=== PATIENT | female | born 1950 | race Caucasian/White ===

== ENCOUNTER 2024-12-25 08:01 | Day surgery (SDC) | payer MEDICARE, SELFPAY ==
[2024-12-21 14:05] VITALS: BMI 33.3
[2024-12-25] MEDS: Tetracaine HCl/PF 0.5% Oph Sol 4 ML DROPS 1 DROP EYE-RIGHT (08:33)
[2024-12-25] MEDS: Lactated Ringers 500 ML 50 ML IV (08:33)
[2024-12-25] MEDS: Tropicamide 1 % Ophth Sol 3 ML BTL 1 DROP EYE-RIGHT ×3 (08:33→08:44)
[2024-12-25] MEDS: Phenylephrine HCL 2.5% Oph SoL 2 ML BOTTLE 1 DROP EYE-RIGHT ×3 (08:34→08:45)
[2024-12-25] MEDS: Cyclopentolate 1 % Ophth Sol 2 ML DRPBTL 1 DROP EYE-RIGHT ×3 (08:34→08:44)
[2024-12-25] MEDS: Ketorolac Tromethamine 0.5% Op 5 ML DROPS 1 DROP EYE-RIGHT ×3 (08:34→08:45)
[2024-12-25 08:51] VITALS: BP 119/58; PULSE 69; RESP 18; TEMP 36.8; O2SAT 94
--- NOTE | 2024-12-25 09:54 | MHC.SHP ---
Pre-Procedural Eval Section A - 24 Hr Update-Section A only Date of Service: 12/25/24 The patient is an INPATIENT: No Changes since office visit: No Cold of Flu in the past 2 weeks, No New Medical Problems, No Changes in Medication and No Patient answered all questions The patient has been examined within 24 hours of the surgical procedure. The History & Physical has been completed within 30 days and I have reviewed it.: Yes Section B - Complete if H&P > 30 days Chief Complaint: Age-related nuclear cataract, right eye Allergies: Allergies Allergy/AdvReac Type Severity Reaction Status Date / Time amoxicillin (From Augmentin) Allergy Severe Hives Verified 12/25/24 08:52 clavulanic acid (From Allergy Severe Hives Verified 12/25/24 08:52 Augmentin) morphine Allergy Severe Hives, Verified 12/25/24 08:52 itching Plan Diagnosis/Plan: Unchanged I have reviewed the history and physical and performed a pertinent physical examination on my patient. No changes have occurred unless specified. Time Spent With Patient Time: Total time managing care of this patient today ____ minutes.
--- NOTE | 2024-12-25 09:55 | P.PCNO_ITS ---
Ophthalmology Procedure Procedure Date of Service: 12/25/24 Ophthalmology Viscoelastic: Healon Duet Dual Pack Pro Ophthalmology Lenses: IOL Acrysof MP - MA60AC (12.5) Procedure Notes: PREOPERATIVE DIAGNOSIS: Decreased visual acuity right eye secondary to cataract POSTOPERATIVE DIAGNOSIS: Same PROCEDURE: Right cataract extraction with intraocular lens insertion SURGEON: Demarco Gauthier M.D. ANESTHESIA: Topical/MAC ESTIMATED BLOOD LOSS: None COMPLICATIONS: None After obtaining informed consent, the patient was brought to the operating room suite and placed in the supine position. After adequate sedation per anesthesia, topical drops of Tetracaine were given to the right eye. The eye was then prepped and draped in the usual sterile fashion. The operating room microscope was then positioned over the operative eye and a lid speculum placed. A paracentesis was created. Viscoelastic was then instilled into the anterior chamber. A three plane incision was then created temporally, utilizing a 2.85 mm keratome. Capsulotomy forceps were then utilized to create a circular tear capsulotomy. Hydrodissection and hydrodelineation were carried out until adequate mobilization of the nucleus occurred. Phacoemulsification was then utilized to remove the dense central nu cleus followed by removal of the cortical material utilizing the automated aspiration irrigation unit. Viscoelastic was instilled into the posterior capsular bag followed by placement of a posterior chamber intraocular lens without difficulty. The residual Viscoelastic was then removed utilizing the automated IA machine. The wound was checked and found to be watertight. The patient tolerated the procedure well and the lid speculum was removed. Intracameral injection of Vigamox 0.1 mL followed by a subtenon injection of Kenalog-40 0.2 mL were administered. The patient will be seen in the a.m.
[2024-12-25 10:47] VITALS: BP 132/58; PULSE 77; RESP 18; TEMP 36.1; O2SAT 97
== END 2024-12-25 10:53 | disposition home or self-care (01) ==
PROVIDERS: PCP Internal Medicine; Visit Provider Ophthalmology
PROC: (CPT 66985; principal; 2024-12-25 10:00)
DX: H25.11 Age-related nuclear cataract, right eye (principal); H54.7 Unspecified visual loss; H40.013 Open angle with borderline findings, low risk, bilateral; H50.15 Alternating exotropia; H52.13 Myopia, bilateral; Z83.518 Family history of other specified eye disorder; I12.9 Hypertensive chronic kidney disease with stage 1 through stage 4 chronic kidney disease, or unspecified chronic kidney disease; N18.2 Chronic kidney disease, stage 2 (mild); D50.9 Iron deficiency anemia, unspecified; E03.9 Hypothyroidism, unspecified; I82.409 Acute embolism and thrombosis of unspecified deep veins of unspecified lower extremity; D49.7 Neoplasm of unspecified behavior of endocrine glands and other parts of nervous system; G50.0 Trigeminal neuralgia; E78.00 Pure hypercholesterolemia, unspecified; J45.20 Mild intermittent asthma, uncomplicated; Z79.01 Long term (current) use of anticoagulants; Z79.899 Other long term (current) drug therapy; Z88.1 Allergy status to other antibiotic agents; Z88.5 Allergy status to narcotic agent; Z98.890 Other specified postprocedural states; Z87.891 Personal history of nicotine dependence
CPT/HCPCS: 66984; J2250; J3301; V2630

== ENCOUNTER 2025-01-08 06:23 | Day surgery (SDC) | payer MEDICARE, SELFPAY ==
[2024-12-21 14:10] VITALS: BMI 33.3
--- NOTE | 2024-12-22 14:10 | HO.ANESPROP2 ---
Documented by User: Concepcion Nicholson NP 12/22/24 14:11 HPI - Anesthesia Eval Consult details Narrative: 74 yr old female for ?Cataract Extraction IOL Insertion left H/O DVT: on eliquis PMFSH Past Medical History Medical History Cataracts, bilateral GERD (gastroesophageal reflux disease) HLD (hyperlipidemia) HTN (hypertension) DVT (deep venous thrombosis) Hypercholesterolemia Trigeminal neuralgia Pituitary tumor Colitis Thyroid disease HTN (hypertension) Family History Family History Mother HTN (hypertension) Macular edema Arthritis Father Thyroid disease Diabetes Liver cancer Rheumatoid arthritis Sister Arthritis COPD (chronic obstructive pulmonary disease) Macular degeneration Surgical History Surgical History History of removal of retained hardware (12/01/24) Hx of salpingo-oophorectomy, bilateral Hx of abdominal hysterectomy (1975) History of esophagogastroduodenoscopy (EGD) Hx of colonoscopy History of laminectomy Hx of breast surgery History of back surgery Social History Social History Household Members: Family Are you a primary care tech to a significant other at home: No Do you presently have visiting nurse or other home services: No Alcohol intake: never Patient Tobacco Use Status: Former Tobacco user Tobacco use type: Cigarette Cigarette Packs Per Day: 3 Years Smoked: 56.5 Smoked in Last 30 Days: No Use of substances other than those prescribed or required for medical reasons: No Have you been hit, kicked, punched, or otherwise hurt by someone within the past year? If so, by whom?: No Are you DNR?: No Advance Directives: No Advance Directives Information Provided: Yes Advance Directives on File: No Poor oral hygiene: No Meds Allergies Allergy/AdvReac Type Severity Reaction Status Date / Time amoxicillin (From Augmentin) Allergy Severe Hives Verified 12/25/24 08:52 clavulanic acid (From Allergy Severe Hives Verified 12/25/24 08:52 Augmentin) morphine Allergy Severe Hives, Verified 12/25/24 08:52 itching Home Medications ?Medication ?Instructions ?Recorded ?Confirmed ?Last Taken ?Type albuterol sulfate 90 mcg/actuation 2 puff inhalation Q4H PRN wheezing 10/26/24 12/21/24 Unknown History aerosol inhaler amitriptyline 10 mg tablet 10 mg PO BEDTIME 10/26/24 12/21/24 Unknown History apixaban 2.5 mg tablet (Eliquis) 2.5 mg PO BID 10/26/24 12/21/24 12/23/24 History azelastine 137 mcg (0.1 %) nasal 1 spray intranasal BID 10/26/24 12/21/24 Unknown History spray carvedilol 12.5 mg tablet 12.5 mg PO BID 10/26/24 12/21/24 12/25/24 History colestipol 1 gram tablet PO 10/26/24 Unknown History diphenoxylate-atropine 2.5 1 tab PO TID PRN diarrhea 10/26/24 12/21/24 Unknown History mg-0.025 mg tablet (Lomotil) fenofibrate 54 mg tablet 54 mg PO BEDTIME 10/26/24 12/21/24 Unknown History furosemide 20 mg tablet 20 mg PO DAILY 10/26/24 12/21/24 Unknown History hydrocortisone 10 mg tablet 10 mg PO QAM 10/26/24 12/21/24 12/25/24 History levothyroxine 125 mcg tablet 125 mcg PO DAILY 10/26/24 12/21/24 12/25/24 History (Synthroid) losartan 100 mg tablet 100 mg PO DAILY 10/26/24 12/21/24 Unknown History omeprazole 40 mg capsule,delayed 40 mg PO DAILY 10/26/24 12/21/24 12/25/24 History release ondansetron HCl 4 mg tablet 4 mg PO Q6H PRN nausea 10/26/24 12/21/24 Unknown History pramipexole 0.125 mg tablet 0.125 mg PO BEDTIME 10/26/24 12/21/24 Unknown History cholecalciferol (vitamin D3) 50 50 mcg PO DAILY 12/21/24 12/21/24 Unknown History mcg (2,000 unit) tablet (Vitamin D3) conjugated estrogens 0.625 mg/gram 0.625 mg vaginal 3XW 12/21/24 12/21/24 Unknown History vaginal cream (Premarin) dicyclomine 20 mg tablet 20 mg PO QID 12/21/24 12/21/24 Unknown History hydrochlorothiazide 12.5 mg tablet 12.5 mg PO DAILY 12/21/24 12/21/24 Unknown History hydrocortisone 5 mg tablet 5 mg PO .DAILY@1300 12/21/24 12/21/24 Unknown History oxycodone 5 mg tablet mg PO 12/21/24 12/21/24 Unknown History pravastatin 40 mg tablet 40 mg PO DAILY 12/21/24 12/21/24 Unknown History Exam Height,Weight and Vital Signs: Height 5 ft 4 in Weight 87.997 kg Documented by User: Nicole Hernandez MD 12/25/24 09:09 [facility] Past Medical History Medical History Cataracts, bilateral GERD (gastroesophageal reflux disease) HLD (hyperlipidemia) HTN (hypertension) DVT (deep venous thrombosis) Hypercholesterolemia Trigeminal neuralgia Pituitary tumor Colitis Thyroid disease HTN (hypertension) Family History Family History Mother HTN (hypertension) Macular edema Arthritis Father Thyroid disease Diabetes Liver cancer Rheumatoid arthritis Sister Arthritis COPD (chronic obstructive pulmonary disease) Macular degeneration Family history of problems with anesthesia: No Surgical History Surgical History History of removal of retained hardware (12/01/24) Hx of salpingo-oophorectomy, bilateral Hx of abdominal hysterectomy (1975) History of esophagogastroduodenoscopy (EGD) Hx of colonoscopy History of laminectomy Hx of breast surgery History of back surgery History of Problems with Anesthesia: No Social History Social History Household Members: Family Are you a primary care tech to a significant other at home: No Do you presently have visiting nurse or other home services: No Alcohol intake: never Patient Tobacco Use Status: Former Tobacco user Tobacco use type: Cigarette Cigarette Packs Per Day: 3 Years Smoked: 56.5 Smoked in Last 30 Days: No Use of substances other than those prescribed or required for medical reasons: No Have you been hit, kicked, punched, or otherwise hurt by someone within the past year? If so, by whom?: No Are you DNR?: No Advance Directives: No Advance Directives Information Provided: Yes Advance Directives on File: No Poor oral hygiene: No Meds Allergies Allergy/AdvReac Type Severity Reaction Status Date / Time amoxicillin (From Augmentin) Allergy Severe Hives Verified 12/25/24 08:52 clavulanic acid (From Allergy Severe Hives Verified 12/25/24 08:52 Augmentin) morphine Allergy Severe Hives, Verified 12/25/24 08:52 itching Home Medications ?Medication ?Instructions ?Recorded ?Confirmed ?Last Taken ?Type albuterol sulfate 90 mcg/actuation 2 puff inhalation Q4H PRN wheezing 10/26/24 12/21/24 Unknown History aerosol inhaler amitriptyline 10 mg tablet 10 mg PO BEDTIME 10/26/24 12/21/24 Unknown History apixaban 2.5 mg tablet (Eliquis) 2.5 mg PO BID 10/26/24 12/21/24 12/23/24 History azelastine 137 mcg (0.1 %) nasal 1 spray intranasal BID 10/26/24 12/21/24 Unknown History spray carvedilol 12.5 mg tablet 12.5 mg PO BID 10/26/24 12/21/24 12/25/24 History colestipol 1 gram tablet PO 10/26/24 Unknown History diphenoxylate-atropine 2.5 1 tab PO TID PRN diarrhea 10/26/24 12/21/24 Unknown History mg-0.025 mg tablet (Lomotil) fenofibrate 54 mg tablet 54 mg PO BEDTIME 10/26/24 12/21/24 Unknown History furosemide 20 mg tablet 20 mg PO DAILY 10/26/24 12/21/24 Unknown History hydrocortisone 10 mg tablet 10 mg PO QAM 10/26/24 12/21/24 12/25/24 History levothyroxine 125 mcg tablet 125 mcg PO DAILY 10/26/24 12/21/24 12/25/24 History (Synthroid) losartan 100 mg tablet 100 mg PO DAILY 10/26/24 12/21/24 Unknown History omeprazole 40 mg capsule,delayed 40 mg PO DAILY 10/26/24 12/21/24 12/25/24 History release ondansetron HCl 4 mg tablet 4 mg PO Q6H PRN nausea 10/26/24 12/21/24 Unknown History pramipexole 0.125 mg tablet 0.125 mg PO BEDTIME 10/26/24 12/21/24 Unknown History cholecalciferol (vitamin D3) 50 50 mcg PO DAILY 12/21/24 12/21/24 Unknown History mcg (2,000 unit) tablet (Vitamin D3) conjugated estrogens 0.625 mg/gram 0.625 mg vaginal 3XW 12/21/24 12/21/24 Unknown History vaginal cream (Premarin) dicyclomine 20 mg tablet 20 mg PO QID 12/21/24 12/21/24 Unknown History hydrochlorothiazide 12.5 mg tablet 12.5 mg PO DAILY 12/21/24 12/21/24 Unknown History hydrocortisone 5 mg tablet 5 mg PO .DAILY@1300 12/21/24 12/21/24 Unknown History oxycodone 5 mg tablet mg PO 12/21/24 12/21/24 Unknown History pravastatin 40 mg tablet 40 mg PO DAILY 12/21/24 12/21/24 Unknown History Exam Airway Mallampati Class: III TM Dist: <=3cm Neck ROM: Poor Heart: rrr Lungs: cta Assessment and Plan Assessment Anesthesia Assessment: Anesthesia Plan Discussed and Chart Reviewed Final Anesthetic Review Family History of Problems with Anesthesia: No History of Problems with Anesthesia: No NPO: Yes ASA Class: III Final Preanesthetic Review: No Changes in Pt Med Stat, Meds/Allgs Chart Reviewed, Consent Obtained/Reviewed and Anes Risks/Benef Reviewed Patient Risk: Intermediate Procedure Risk: Low Anesthetic Plan Anesthetic Plan: MAC: and Agree w/ Assess. and Plan Disposition: Standard PACU
--- NOTE | 2025-01-04 14:07 | HO.ANESPROP2 ---
Documented by User: Tari Guzman NP 01/04/25 14:08 HPI - Anesthesia Eval Consult details Narrative: 74yo F for Left Cataract Extraction IOL Insertion Right eye 12/25/24: Midaz 2 Eliquis for hx DVT PMFSH Past Medical History Medical History Cataracts, bilateral GERD (gastroesophageal reflux disease) HLD (hyperlipidemia) HTN (hypertension) DVT (deep venous thrombosis) Hypercholesterolemia Trigeminal neuralgia Pituitary tumor Colitis Thyroid disease Family History Family History Mother HTN (hypertension) Macular edema Arthritis Father Thyroid disease Diabetes Liver cancer Rheumatoid arthritis Sister Arthritis COPD (chronic obstructive pulmonary disease) Macular degeneration Family history of problems with anesthesia: No Surgical History Surgical History Hx of right cataract extraction (12/25/24) History of removal of retained hardware (12/01/24) Hx of salpingo-oophorectomy, bilateral Hx of abdominal hysterectomy (1975) History of esophagogastroduodenoscopy (EGD) Hx of colonoscopy History of laminectomy Hx of breast surgery History of back surgery History of Problems with Anesthesia: No Social History Social History Household Members: Family Are you a primary health care law specialist to a significant other at home: No Do you presently have visiting nurse or other home services: No Alcohol intake: never Patient Tobacco Use Status: Former Tobacco user Tobacco use type: Cigarette Cigarette Packs Per Day: 3 Years Smoked: 56.5 Packs Per Year: 14 Smoked in Last 30 Days: No Use of substances other than those prescribed or required for medical reasons: No Have you been hit, kicked, punched, or otherwise hurt by someone within the past year? If so, by whom?: No Are you DNR?: No Advance Directives: No Advance Directives Information Provided: Yes Advance Directives on File: No Poor oral hygiene: No Meds Allergies Allergy/AdvReac Type Severity Reaction Status Date / Time amoxicillin (From Augmentin) Allergy Severe Hives Verified 01/08/25 06:35 clavulanic acid (From Allergy Severe Hives Verified 01/08/25 06:35 Augmentin) morphine Allergy Severe Hives, Verified 01/08/25 06:35 itching Active Medications: Current Medications Naloxone HCl (Naloxone Hcl 0.4 Mg/Ml Vial) 0.04 mg IVPUSH Q5M PRN PRN Reason: Excessive sedation or RR < 8 Home Medications ?Medication ?Instructions ?Recorded ?Confirmed ?Last Taken ?Type albuterol sulfate 90 mcg/actuation 2 puff inhalation Q4H PRN wheezing 10/26/24 12/21/24 Unknown History aerosol inhaler amitriptyline 10 mg tablet 10 mg PO BEDTIME 10/26/24 12/21/24 Unknown History apixaban 2.5 mg tablet (Eliquis) 2.5 mg PO BID 10/26/24 12/21/24 12/23/24 History azelastine 137 mcg (0.1 %) nasal 1 spray intranasal BID 10/26/24 12/21/24 Unknown History spray carvedilol 12.5 mg tablet 12.5 mg PO BID 10/26/24 12/21/24 01/08/25 05:00 History colestipol 1 gram tablet PO 10/26/24 Unknown History diphenoxylate-atropine 2.5 1 tab PO TID PRN diarrhea 10/26/24 12/21/24 Unknown History mg-0.025 mg tablet (Lomotil) fenofibrate 54 mg tablet 54 mg PO BEDTIME 10/26/24 12/21/24 Unknown History furosemide 20 mg tablet 20 mg PO DAILY 10/26/24 12/21/24 Unknown History hydrocortisone 10 mg tablet 10 mg PO QAM 10/26/24 12/21/24 12/25/24 History levothyroxine 125 mcg tablet 125 mcg PO DAILY 10/26/24 12/21/24 01/08/25 05:00 History (Synthroid) losartan 100 mg tablet 100 mg PO DAILY 10/26/24 12/21/24 Unknown History omeprazole 40 mg capsule,delayed 40 mg PO DAILY 10/26/24 12/21/24 01/08/25 05:00 History release ondansetron HCl 4 mg tablet 4 mg PO Q6H PRN nausea 10/26/24 12/21/24 Unknown History pramipexole 0.125 mg tablet 0.125 mg PO BEDTIME 10/26/24 12/21/24 Unknown History cholecalciferol (vitamin D3) 50 50 mcg PO DAILY 12/21/24 12/21/24 Unknown History mcg (2,000 unit) tablet (Vitamin D3) conjugated estrogens 0.625 mg/gram 0.625 mg vaginal 3XW 12/21/24 12/21/24 Unknown History vaginal cream (Premarin) dicyclomine 20 mg tablet 20 mg PO QID 12/21/24 12/21/24 Unknown History hydrochlorothiazide 12.5 mg tablet 12.5 mg PO DAILY 12/21/24 12/21/24 Unknown History hydrocortisone 5 mg tablet 5 mg PO .DAILY@1300 12/21/24 12/21/24 Unknown History oxycodone 5 mg tablet mg PO 12/21/24 12/21/24 Unknown History pravastatin 40 mg tablet 40 mg PO DAILY 12/21/24 12/21/24 Unknown History Exam Height,Weight and Vital Signs: Height 5 ft 4 in Weight 87.997 kg Assessment and Plan Assessment Anesthesia Assessment: Chart Reviewed Final Anesthetic Review Family History of Problems with Anesthesia: No History of Problems with Anesthesia: No Documented by User: Miriam Trujillo MD 01/08/25 07:38 [facility] Past Medical History Medical History Cataracts, bilateral GERD (gastroesophageal reflux disease) HLD (hyperlipidemia) HTN (hypertension) DVT (deep venous thrombosis) Hypercholesterolemia Trigeminal neuralgia Pituitary tumor Colitis Thyroid disease Family History Family History Mother HTN (hypertension) Macular edema Arthritis Father Thyroid disease Diabetes Liver cancer Rheumatoid arthritis Sister Arthritis COPD (chronic obstructive pulmonary disease) Macular degeneration Surgical History Surgical History Hx of right cataract extraction (12/25/24) History of removal of retained hardware (12/01/24) Hx of salpingo-oophorectomy, bilateral Hx of abdominal hysterectomy (1975) History of esophagogastroduodenoscopy (EGD) Hx of colonoscopy History of laminectomy Hx of breast surgery History of back surgery Social History Social History Household Members: Family Are you a primary health care law specialist to a significant other at home: No Do you presently have visiting nurse or other home services: No Alcohol intake: never Patient Tobacco Use Status: Former Tobacco user Tobacco use type: Cigarette Cigarette Packs Per Day: 3 Years Smoked: 56.5 Packs Per Year: 14 Smoked in Last 30 Days: No Use of substances other than those prescribed or required for medical reasons: No Have you been hit, kicked, punched, or otherwise hurt by someone within the past year? If so, by whom?: No Are you DNR?: No Advance Directives: No Advance Directives Information Provided: Yes Advance Directives on File: No Poor oral hygiene: No Meds Allergies Allergy/AdvReac Type Severity Reaction Status Date / Time amoxicillin (From Augmentin) Allergy Severe Hives Verified 01/08/25 06:35 clavulanic acid (From Allergy Severe Hives Verified 01/08/25 06:35 Augmentin) morphine Allergy Severe Hives, Verified 01/08/25 06:35 itching Home Medications ?Medication ?Instructions ?Recorded ?Confirmed ?Last Taken ?Type albuterol sulfate 90 mcg/actuation 2 puff inhalation Q4H PRN wheezing 10/26/24 12/21/24 Unknown History aerosol inhaler amitriptyline 10 mg tablet 10 mg PO BEDTIME 10/26/24 12/21/24 Unknown History apixaban 2.5 mg tablet (Eliquis) 2.5 mg PO BID 10/26/24 12/21/24 12/23/24 History azelastine 137 mcg (0.1 %) nasal 1 spray intranasal BID 10/26/24 12/21/24 Unknown History spray carvedilol 12.5 mg tablet 12.5 mg PO BID 10/26/24 12/21/24 01/08/25 05:00 History colestipol 1 gram tablet PO 10/26/24 Unknown History diphenoxylate-atropine 2.5 1 tab PO TID PRN diarrhea 10/26/24 12/21/24 Unknown History mg-0.025 mg tablet (Lomotil) fenofibrate 54 mg tablet 54 mg PO BEDTIME 10/26/24 12/21/24 Unknown History furosemide 20 mg tablet 20 mg PO DAILY 10/26/24 12/21/24 Unknown History hydrocortisone 10 mg tablet 10 mg PO QAM 10/26/24 12/21/24 12/25/24 History levothyroxine 125 mcg tablet 125 mcg PO DAILY 10/26/24 12/21/24 01/08/25 05:00 History (Synthroid) losartan 100 mg tablet 100 mg PO DAILY 10/26/24 12/21/24 Unknown History omeprazole 40 mg capsule,delayed 40 mg PO DAILY 10/26/24 12/21/24 01/08/25 05:00 History release ondansetron HCl 4 mg tablet 4 mg PO Q6H PRN nausea 10/26/24 12/21/24 Unknown History pramipexole 0.125 mg tablet 0.125 mg PO BEDTIME 10/26/24 12/21/24 Unknown History cholecalciferol (vitamin D3) 50 50 mcg PO DAILY 12/21/24 12/21/24 Unknown History mcg (2,000 unit) tablet (Vitamin D3) conjugated estrogens 0.625 mg/gram 0.625 mg vaginal 3XW 12/21/24 12/21/24 Unknown History vaginal cream (Premarin) dicyclomine 20 mg tablet 20 mg PO QID 12/21/24 12/21/24 Unknown History hydrochlorothiazide 12.5 mg tablet 12.5 mg PO DAILY 12/21/24 12/21/24 Unknown History hydrocortisone 5 mg tablet 5 mg PO .DAILY@1300 12/21/24 12/21/24 Unknown History oxycodone 5 mg tablet mg PO 12/21/24 12/21/24 Unknown History pravastatin 40 mg tablet 40 mg PO DAILY 12/21/24 12/21/24 Unknown History Exam Airway Mallampati Class: III TM Dist: >3cm Neck ROM: Full Loose/Missing/Broken Teeth: No Heart: RRR Lungs: CTA Assessment and Plan Assessment Anesthesia Assessment: Anesthesia Plan Discussed Final Anesthetic Review NPO: Yes ASA Class: III Final Preanesthetic Review: Meds/Allgs Chart Reviewed, Consent Obtained/Reviewed and Anes Risks/Benef Reviewed Patient Risk: Intermediate Procedure Risk: Low Anesthetic Plan Anesthetic Plan: MAC: Disposition: Standard PACU
[2025-01-08] MEDS: Tetracaine HCl/PF 0.5% Oph Sol 4 ML DROPS 1 DROP EYE-LEFT (06:44)
[2025-01-08] MEDS: Cyclopentolate 1 % Ophth Sol 2 ML DRPBTL 1 DROP EYE-LEFT ×3 (06:48→07:01)
[2025-01-08] MEDS: Tropicamide 1 % Ophth Sol 3 ML BTL 1 DROP EYE-LEFT ×3 (06:49→07:02)
[2025-01-08] MEDS: Ketorolac Tromethamine 0.5% Op 5 ML DROPS 1 DROP EYE-LEFT ×3 (06:50→07:03)
[2025-01-08] MEDS: Phenylephrine HCL 2.5% Oph SoL 2 ML BOTTLE 1 DROP EYE-LEFT ×3 (06:53→07:04)
[2025-01-08 07:00] VITALS: BP 129/49; PULSE 60; RESP 15; TEMP 36.2; O2SAT 94
[2025-01-08] MEDS: Lactated Ringers 500 ML 50 ML IV (07:04)
--- NOTE | 2025-01-08 07:47 | MHC.SHP ---
Pre-Procedural Eval Section A - 24 Hr Update-Section A only Date of Service: 01/08/25 The patient is an INPATIENT: No Changes since office visit: No Cold of Flu in the past 2 weeks, No New Medical Problems, No Changes in Medication and No Patient answered all questions The patient has been examined within 24 hours of the surgical procedure. The History & Physical has been completed within 30 days and I have reviewed it.: Yes Section B - Complete if H&P > 30 days Chief Complaint: Age-related nuclear cataract, left eye Allergies: Allergies Allergy/AdvReac Type Severity Reaction Status Date / Time amoxicillin (From Augmentin) Allergy Severe Hives Verified 01/08/25 06:35 clavulanic acid (From Allergy Severe Hives Verified 01/08/25 06:35 Augmentin) morphine Allergy Severe Hives, Verified 01/08/25 06:35 itching Plan Diagnosis/Plan: Unchanged I have reviewed the history and physical and performed a pertinent physical examination on my patient. No changes have occurred unless specified. Time Spent With Patient Time: Total time managing care of this patient today ____ minutes.
--- NOTE | 2025-01-08 07:47 | HO.PNOPHT ---
Ophthalmology Procedure Procedure Date of Service: 01/08/25 Ophthalmology Viscoelastic: Healon Duet Dual Pack Pro Ophthalmology Lenses: IOL Acrysof MP - MA60AC (18) Procedure Notes: PREOPERATIVE DIAGNOSIS: Decreased visual acuity left eye secondary to cataract POSTOPERATIVE DIAGNOSIS: Same PROCEDURE: Left cataract extraction with intraocular lens insertion SURGEON: Demarco Gauthier M.D. ANESTHESIA: Topical/MAC ESTIMATED BLOOD LOSS: None COMPLICATIONS: None After obtaining informed consent, the patient was brought to the operation room suite and placed in the supine position. After adequate sedation per anesthesia, topical drops of Tetracaine were given to the left eye. The eye was then prepped and draped in the usual sterile fashion. The operating room microscope was then positioned over the operative eye and a lid speculum placed. A paracentesis was created. Viscoelastic was then instilled into the anterior chamber. A three plane incision was then created temporally, utilizing a 2.85 mm keratome. Capsulotomy forceps were then utilized to create a circular tear capsulotomy. Hydrodissection and hydrodelineation were carried out until adequate mobilization of the nucleus occurred. Phacoemulsification was then utilized to remove the dense central nucleus followed by removal of the cortical material utilizing the automated aspiration irrigation unit. Viscoat elastic was instilled into the posterior capsular bag followed by placement of a posterior chamber intraocular lens without difficulty. The residual Viscoat elastic was then removed utilizing the automated IA machine. The wound was check and found to be watertight. The patient tolerated the procedure well and the lid speculum was removed. Intracameral injection of Vigamox 0.1 mL followed by a subtenon injection of Kenalog-40 0.2 mL were administered. The patient will be seen in the a.m.
[2025-01-08 08:10] VITALS: BP 128/62; PULSE 56; RESP 18; TEMP 36.2; O2SAT 96
[2025-01-08 08:12] VITALS: BP 115/52; PULSE 54; RESP 18; TEMP 36.1; O2SAT 95
== END 2025-01-08 08:29 | disposition home or self-care (01) ==
PROVIDERS: PCP Internal Medicine; Visit Provider Ophthalmology
PROC: (CPT 66985; principal; 2025-01-08 08:00)
DX: H25.12 Age-related nuclear cataract, left eye (principal); H54.7 Unspecified visual loss; H40.013 Open angle with borderline findings, low risk, bilateral; H50.15 Alternating exotropia; H52.13 Myopia, bilateral; I10 Essential (primary) hypertension; E78.00 Pure hypercholesterolemia, unspecified; D49.7 Neoplasm of unspecified behavior of endocrine glands and other parts of nervous system; G50.0 Trigeminal neuralgia; E07.9 Disorder of thyroid, unspecified; E78.5 Hyperlipidemia, unspecified; K21.9 Gastro-esophageal reflux disease without esophagitis; Z86.718 Personal history of other venous thrombosis and embolism; Z79.01 Long term (current) use of anticoagulants; Z79.899 Other long term (current) drug therapy; Z88.1 Allergy status to other antibiotic agents; Z88.5 Allergy status to narcotic agent; Z98.890 Other specified postprocedural states; Z87.891 Personal history of nicotine dependence
CPT/HCPCS: 66984; J2250; J3301; V2630

== ENCOUNTER 2025-01-11 07:59 | Outpatient (AMB) | payer MEDICARE, SELFPAY ==
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
[2025-01-11 08:03] VITALS: BP 138/70; PULSE 60; O2SAT 96; BMI 37.1
--- OUTSIDE RECORDS SUMMARY | 2025-01-11 08:04 | XMS_ITS | Clinical Summary ---
Author Organization [facility] [address] [place] [address] [address] [place] [address] Phone Care Team Providers Care Envelope Maker Name Role Phone Madi Rees MD Primary Care Provider Allergies Active Allergy Reactions Criticality Noted Date Comments Amoxicillin-Pot Clavulanate Itching 01/01/20 12 Morphine Sulfate Itching 01/01/2012 Rosuvastatin Calcium 06/17/2017 Crestor Medications colestipoL (COLESTID) 1 gram tablet Take 1 Tablet by mouth 4 times daily as needed (diarrhea). 02/07/20 24 Active amitriptyline (ELAVIL) 10 mg tablet Take 1 tablet (10 mg total) by mouth at bedtime. 01/01/20 23 Active multivitamin with minerals (Multiple Vitamin-Liability Claims Examiner als) tablet Take by mouth daily. Active L. acidophilus/B ifid. animalis (DAILY PROBIOTIC ORAL) Take by mouth. Activ e cholecalcifer ol (VITAMIN D-3) 50 mcg (2,000 unit) capsule Take by mouth. Activ e ondansetron (ZOFRAN) 4 mg tablet Take 1 tablet (4 mg total) by mouth every 6 (six) hours if needed for nausea. 20 tablet 2 03/31/20 24 Active diphenoxylate -atropine (LOMOTIL) 2.5-0.025 mg per tablet TAKE 1 TABLET 3 TIMES A DAYAS NEEDED FOR DIARRHEA 270 tablet 1 07/14/19 25 Active albuterol HFA (PROAIR HFA ; PROVENTIL HFA ; VENTOLIN HFA) 90 mcg/actuation inhaler USE 2 INHALATIONS ORALLY EVERY 4 HOURS NEEDED FORCOUGH OR WHEEZING 18 g 1 07/25/19 25 Active vit C/vit E ac/selenium/g inkgo (MEMORY COMPLEX ORAL) Take by mouth 1 (one) time each day. Neuriva Active losartan (COZAAR) 100 mg tablet TAKE 1 TABLET DAILY 90 tablet 1 10/03/19 25 Active levothyroxine (SYNTHROID, LEVOTHROID) 125 mcg tablet Take 1 tablet (125 mcg total) by mouth 1 (one) time each day. 90 each 1 10/14/19 25 Active estradioL (ESTRACE) 0.01 % (0.1 mg/gram) vaginal cream APPLY 1/2 GRAM ON MONDAYS, WEDNESDAYS AND FRIDAYS 42.5 g 1 10/20/19 25 Active pramipexole (MIRAPEX) 0.25 mg tablet Take 1 tablet (0.25 mg total) by mouth at bedtime. 90 each 1 10/21/19 25 026 Active dicyclomine (BENTYL) 10 mg capsule Take 1 capsule (10 mg total) by mouth 4 (four) times a day if needed (abdominal spasms). 90 capsule 2 10/27/19 25 Active furosemide (LASIX) 40 mg tablet Take 0.5 tablets (20 mg total) by mouth 1 (one) time each day. 90 each 1 11/14/19 25 Active hydroCHLOROth iazide 12.5 mg tablet Take 1 tablet (12.5 mg total) by mouth 1 (one) time each day. 90 each 1 11/29/19 25 Active loperamide (IMODIUM) 2 mg capsule Take 1 capsule (2 mg total) by mouth 4 (four) times a day if needed for diarrhea. 360 capsule 12/15/19 25 Active hydrocortison e (CORTEF) 10 mg tablet TAKE 1 TABLET BY MOUTH EVERY DAY 90 tablet 1 12/19/19 25 Active oxyCODONE (ROXICODONE) 5 mg immediate release tablet Take 1 tablet (5 mg total) by mouth if needed. 11/30/19 25 Active hydrocortison e (CORTEF) 5 mg tablet Take 1 tablet (5 mg total) by mouth 1 (one) time each day. At noon time Active carvediloL (COREG) 12.5 mg tablet Take 1 tablet (12.5 mg total) by mouth 2 (two) times a day with meals. 180 tablet 1 12/19/19 25 Active Eliquis 2.5 mg tablet Take 1 tablet (2.5 mg total) by mouth 2 (two) times a day. 180 tablet 1 12/19/19 25 Active fenofibrate (LOFIBRA) 54 mg tablet Take 1 tablet (54 mg total) by mouth 1 (one) time each day. 90 tablet 1 12/19/19 25 Active pravastatin (PRAVACHOL) 40 mg tablet Take 1 tablet (40 mg total) by mouth 1 (one) time each day. 90 tablet 1 12/19/19 25 Active ferrous sulfate 325 mg (65 mg iron) EC tablet Take 1 tablet (325 mg total) by mouth 1 (one) time each day with breakfast. Do not crush, chew, or split. 90 each 1 12/19/19 25 Active azelastine (ASTELIN) 137 mcg (0.1 %) nasal spray USE 1 SPRAY IN EACH NOSTRILTWICE DAILY, DIRECTED 30 mL 1 12/29/19 25 Active omeprazole (PriLOSEC) [address] capsule TAKE 1 CAPSULE ONCE DAILY; DO NOT CRUSH OR CHEW 90 capsule 12/29/19 25 Active sucralfate (CARAFATE) 1 gram tablet TAKE 1 TABLET AT BEDTIME 02/24/20 23 025 Discontinued hydrocortison e (CORTEF) 10 mg tablet TAKE 1 TABLET BY MOUTH EVERY DAY 90 tablet 1 06/22/19 25 025 Discontinued pravastatin (PRAVACHOL) 40 mg tablet TAKE 1 TABLET DAILY 90 tablet 1 07/13/19 25 025 Discontinued(R eorder) oxyCODONE (ROXICODONE) 10 mg immediate release tablet 1 TABLET EVERY 6 HOURS NEEDED FOR PAIN 025 Discontinued(T herapy completed) carvediloL (COREG) 12.5 mg tablet Take 1 tablet (12.5 mg total) by mouth 2 (two) times a day with meals. 180 tablet 1 07/19/19 25 025 Discontinued(R eorder) Eliquis 2.5 mg tablet Take 1 tablet (2.5 mg total) by mouth 2 (two) times a day. 180 tablet 1 03 025 Discontinued(R eorder) fenofibrate (LOFIBRA) 54 mg tablet Take 1 tablet (54 mg total) by mouth 1 (one) time each day. 90 tablet 1 07/19/19 025 Discontinued(R eorder) omeprazole (PriLOSEC) [address] capsule Take 1 capsule (40 mg total) by mouth 1 (one) time each day. Do not crush or chew. 90 each 1 07/19/19 025 Discontinued azelastine (ASTELIN) 137 mcg (0.1 %) nasal spray Administer 1 spray into each nostril 2 (two) times a day. Use in each nostril as directed 30 mL 1 09/05/19 025 Discontinued loperamide (IMODIUM) 2 mg capsule Take 1 capsule (2 mg total) by mouth 4 (four) times a day if needed for diarrhea. 60 capsule 1 10/19/19 025 Discontinued(R eorder) Active Problems Problem Noted Date Diagnosed Date Gastroesophageal reflux disease without esophagi tis 07/18/2024 Allergic rhinitis 03/10/2024 Hypogammaglobulinemia ([facility] V24) 03/10/2024 Trigeminal neuralgia 03/10/2024 Overview (03/10/2024): Had surgery to relieve 2012 - not effective Restless leg syndrome 03/10/2024 Hypothyroidism due to acquired atrophy of thyroi d 08/23/2023 Mild intermittent asthma without complication Hypertriglyceridemia 08/23/2023 SI joint arthritis ([facility] V24) 08/23/2023 Pelvic pain 04/02/2022 Overview (03/10/2024): Last Assessment & Plan: UA positive for trace blood today, urine culture sent. Will treat as indicated. CT A/P ordered to assess for possible stone within the bladder. Wet prep ordered to r/o vaginal infection. Possible referral to urology based on results. All questions answered. Cervical radiculopathy 05/28/2021 Urinary frequency 12/04/2020 Overview (03/10/2024): Last Assessment & Plan: Will send culture and treat presumptively. Vaginal atrophy 12/04/2020 Overview (03/10/2024): Last Assessment & Plan: Restart Premarin cream. Collagenous colitis 11/28/2019 Assessment & Plan (12/18/2024 12:38 PM EDT): Orders: CBC and differential; Future Basic metabolic panel; Future Thyroid stimulating hormone with reflex to free t4 and free t3; Future Microscopic colitis 08/10/2019 Esophageal candidiasis ([facility] V24, [facility] V28 ) 08/10/2019 Asthma 07/20/2019 Chronic headache disorder 06/02/2017 Overview (03/10/2024): Onset approx 2015. Postprocedural retroperitoneal abscess 7 Overview (03/10/2024): Retroperitoneal perforation, ERCP, 03/10/2016 Elevated alkaline phosphatase level 04/07/2016 Overview (03/10/2024): Dilated pancreatic duct, perforation at time of ERCP and sphincterotomy Mixed hyperlipidemia 02/23/2014 Secondary adrenal insufficiency ([facility] V24) Assessment & Plan (12/18/2024 12:38 PM EDT): Orders: CBC and differential; Future Basic metabolic panel; Future Thyroid stimulating hormone with reflex to free t4 and free t3; Future Jugular vein thrombosis, left 01/18/2014 Overview (03/10/2024): No flow left internal jugular vein, left sigmoid and transverse sinuses. Lifelong anticoagulation recommended by Dr. Hills Pituitary adenoma ([facility] V24, [facility] V28) Overview (03/10/2024): 5 mm on MRI of 12/29/2013 Chronic left-sided low back pain with left-sided sciatica 03/21/2013 Overview (03/10/2024): Per pt: [facility], Dr. Bean performed my cervical surgery in 2019 and will be doing back surgery, for ruptured disk, central canal and foraminal stenosis Recurrent deep vein thrombos is (DVT) of lower extremity (CMS/HCC V24, CMS/HCC V28) 10/14/2012 Overview (03/10/2024): Chronic anticoagulation Assessment & Plan (12/18/2024 12:38 PM EDT): Orders: CBC and differential; Future Basic metabolic panel; Future Thyroid stimulating hormone with reflex to free t4 and free t3; Future Myofascial pain 09/21/2012 Overview (03/10/2024): [facility] Dr. Jose C Tariq [phone] Cervicalgia 09/21/2012 Chronic pain 03/10/2012 Hypothyroid 03/10/2012 Assessment & Plan (12/18/2024 12:38 PM EDT): Orders: CBC and differential; Future Basic metabolic panel; Future Thyroid stimulating hormone with reflex to free t4 and free t3; Future Primary hypertension 01/01/2012 Assessment & Plan (12/18/2024 12:38 PM EDT): Orders: CBC and differential; Future Basic metabolic panel; Future Thyroid stimulating hormone with reflex to free t4 and free t3; Future Encounters Date Type Department Care Team Description 12/22/2024 Telephone Adult Medicine [address] [phone] Madi Rees MD 12/18/2024 11:30 AM EDT Office Visit Adult Medicine [address] [phone] Madi Rees MD Primary hypertension (Primary Dx); Recurrent deep vein thrombosis (DVT) of lower extremity, unspecified laterality (CMS/HCC V24, CMS/HCC V28); Collagenous colitis; Secondary adrenal insufficiency (CMS/HCC V24); Acquired hypothyroidism; Carpal tunnel syndrome on left; CKD (chronic kidney disease) stage 2, GFR 60-89 ml/min; Iron deficiency anemia, unspecified iron deficiency anemia type; Encounter for subsequent annual wellness visit (AWV) in Medicare patient; Need for vaccination against Streptococcus pneumoniae 10/26/2024 1:00 PM EDT Consult Adult Medicine [address] [phone] Madi Rees MD Localized swelling of lower extremity (Primary Dx); Recurrent deep vein thrombosis (DVT) of lower extremity, unspecified laterality ([facility] V24, [facility] V28); Collagenous colitis; Primary hypertension; Secondary adrenal insufficiency ([facility] V24) 10/20/2024 Telephone Gastroenterology - [place] [facility] [address] [place] [address] James Best PA 10/19/2024 1:05 PM EDT - 10/19/2024 11:59 PM EDT Hospital Encounter Radiology Department - [address] [phone] Localized swelling of lower extremity; Elevated d-dimer Discharge Disposition: Home or Self Care 10/18/2024 10:40 AM EDT Lab Draw Station [address] Localized swelling of lower extremity; Primary hypertension; Acquired hypothyroidism; Secondary adrenal insufficiency ([facility] V24); Collagenous colitis; Recurrent deep vein thrombosis (DVT) of lower extremity, unspecified laterality ([facility] V24, [facility] V28); Hyperkalemia 10/18/2024 10:30 AM EDT - 10/18/2024 11:59 PM EDT Hospital Encounter XRAY [address] [phone] Localized swelling of lower extremity; Primary hypertension Discharge Disposition: Home or Self Care 10/18/2024 10:00 AM EDT Consult Adult Medicine [address] [phone] Madi Rees MD Localized swelling of lower extremity (Primary Dx); Primary hypertension; Acquired hypothyroidism; Secondary adrenal insufficiency ([facility] V24); Collagenous colitis; Recurrent deep vein thrombosis (DVT) of lower extremity, unspecified laterality ([facility] V24, [facility] V28); Elevated d-dimer from Last 3 Months Immunizations Name Administration Dates Next Due COVID-19 (Pfizer/Comirnaty) 12yo and older 01/11/2024 Influenza Quadravalent, MDCK , 0.5ml, with preservative (Flucelvax) 6mo and older 03/16/2017 Influenza trivalent, 0.5mL ( Fluad) 65yo and older 01/11/2024,01/11/2023,01/08/2022,01/21,02/14/2020,03/08/2018 Influenza trivalent, 0.5mL, preservative free (Fluarix; FluLaval; Fluzone) ages 6mo and older (Afluria) 3 years and older 04/07/2016,02/06/2014,03/21/2013,03/10 Moderna SARS-CoV-2 COVID-19, mRNA, LNP-S, preservative free 08/18/2021,02/26/2021,07/26/2020,06/28 Pfizer SARS-CoV-2 COVID-19, mRNA, LNP-S, preservative free 01/11/2024 Pneumococcal conjugate 13 va lent (Prevnar 13, PCV13) 2mo and older 11/04/2016 Pneumococcal conjugate 20 va lent (Prevnar 20, PCV 20) 2mo and older 12/18/2024 Pneumococcal polysaccharide 23 valent (Pneumovax 23) 2yo and older 02/14/2020,03/10/2012 RSV, bivalent, protein subun it RSVpreF, 0.5mL, Preservative Free (Arexvy) 60yo and older 02/19/2023 Td Tetanus diptheria (Tdvax) 7yo and older 01/11/2023 Tdap Tetanus diptheria acell ular pertussis (Boostrix; Adacel) 7yo and older 01/11/2024,03/10/2012 Zoster Live 01/03/2013 Zoster recombinant (Shingrix ) 19yo and older 02/11/2023,12/11/2022 Surgical History Surgery Date Site/Laterality Comments CERVICAL LAMINECTOMY PROCEDURE: HISTORICAL CERV LAMINECTOMY; COMMENT: 1992 BACK SURGERY PROCEDURE: HISTORICAL BACK SURGERY; COMMENT: lumbar 2003 and 2005 SINUS SURGERY PROCEDURE: MN UNLISTED PROCEDURE ACCESSORY SINUSES; COMMENT: 2006 OTHER SURGICAL HISTORY PROCEDURE: MN TOTAL ABDOMINAL HYSTERECT W/WO RMVL TUBE OVARY; COMMENT: uterus 1975, one ovary 1982, other one 1985 OTHER SURGICAL HISTORY PROCEDURE: HISTORICAL UNSPECIFIED SURGERY; COMMENT: decompression brain surgery for trigem neuralgia BREAST SURGERY Left PROCEDURE: MN UNLISTED PROCEDURE BREAST; COMMENT: ductal ectasia OTHER SURGICAL HISTORY 03/10/2016 PROCEDURE: MN ERCP W/SPHINCTEROTOMY/PAPILLOT ALEX; COMMENT: [facility]; pancreatic sphincterotomy and stent placement; complicated by retroperitoneal perforation. UPPER GASTROINTESTINAL ENDOSCOPY 12/07/2014 PROCEDURE: MN UPPER GI ENDOSCOPY PERFORMED; COMMENT: [facility]; Few small gastric erosions; no H. pylori; nl duodenal bx. COLONOSCOPY 12/07/2014 PROCEDURE: HISTORICAL COLONOSCOPY; COMMENT: [facility]; Hemorrhoids; normal biopsies OTHER SURGICAL HISTORY 04/09/2017 PROCEDURE: NUCLEAR EXAM OF STOMACH EMPTYING; COMMENT: Normal. COLONOSCOPY 07/26/2019 PROCEDURE: HISTORICAL COLONOSCOPY; COMMENT: collagenous colitis on biopsy UPPER GASTROINTESTINAL ENDOSCOPY 07/26/2019 PROCEDURE: UPPER GI ENDOSCOPY/EXAM; COMMENT: hiatal hernia ESOPHAGOGASTRODUODENOSCOPY 04/14/2022 PROCEDURE: MN EGD TRANSORAL BIOPSY SINGLE/MULTIPLE; COMMENT: esoph normal including biopsy Medical History Medical History Date Comments Allergic rhinitis DX:Allergic rh initis Hypogammaglobulinaemia, unspecified DX:Hypogammaglobulinaemia, unspecified; COMMENT: weekly infusions HTN (hypertension) DX:HTN (hyper tension) Tumor, thyroid DX:Tumor, thyroi d Trigeminal neuralgia DX:Trigemin al neuralgia; COMMENT: surgery 2012 Restless leg syndrome DX:Restles s leg syndrome Hypothyroid DX:Hypothyroid Mixed hyperlipidemia 02/23/2014 DX:Mixed hy perlipidemia Microscopic colitis DX:Microscop ic colitis Adrenal insufficiency (CMS/HCC V24) 10/09/2020 DX:Adrenal insufficiency (HCC) History of benign thyroid tumor DX:History of benign thyroid tumor; COMMENT: Had hemithyroidectomy, hurthle cell tumor, 1992 Colitis DX:Colitis History of back surgery DX:Histo ry of back surgery Asthma 07/20/2019 Gastroesophageal reflux dise ase without esophagitis 07/18/2024 Family History Medical History Relation Name Comments Rheum arthritis Father Thyroid disease Father diabetes, de ceased, liver cancer Arthritis Mother hx TKR Hypertension Mother macular edema Testicular cancer Other 1 Nephrolithiasis Other 2 COPD Sister 1 Arthritis Sister 2 Macular degeneration Sister 2 Autoimmune disease Neg Hx Breast cancer Neg Hx Colon cancer Neg Hx Coronary artery disease Neg Hx Ovarian cancer Neg Hx Sleep apnea Neg Hx Relation Name Status Comments Father (Age 89) htn, DMa Mother Alive htn Other 1 Other 2 Sister 1 Alive Sister 2 Alive Social History Tobacco Use Types Packs/Day Years Used Date Smoking Tobacco: Former Cigarettes 0.3 56.5 0 10/11/1960 - 04/01/2017 Smokeless Tobacco: Never Alcohol Use Standard Drinks/Week Comments No 0 (1 standard drink = 0.6 oz pur e alcohol) Housing Instability Answer Date Recorde d Are you worried that in the next 2 months you may not have stable housing? No 12/12/2024 Food Access & Nutrition Answer Date Rec orded Do you have access to a vari ety of food including fruits and vegetables? Yes 12/12/2024 Access to Healthcare Answer Date Record ed Within the last 3 months, ho w many times did you visit the emergency department for your medical care? 0 12/12/2024 Health Literacy Answer Date Recorded How often do you need to hav e someone help you when you read instructions, pamphlets, or other written material from your doctor or pharmacy? Rarely 12/12/2024 Caregiver: How often do you need to have someone help you when you read instructions, pamphlets, or other written material from your doctor or pharmacy? Not on file 12/12/2024 Financial Risk Answer Date Recorded How hard is it for you to pa y for the very basics like food, housing, medical care, and air conditioning / heating? Not very hard 12/12/2024 Transportation Answer Date Recorded Has the lack of transportati on kept you from meetings, work, or from getting things needed for daily living? No Has the lack of transportati on kept you from medical appointments or from getting medications? No 12/12/2024 Social Isolation Answer Date Recorded How often do you feel lonely or isolated from th ose around you? Rarely 12/12/2024 Food Risk Answer Date Recorded Within the past 12 months we worried whether our food would run out before we got money to buy more. Never true 12/12/2024 Within the past 12 months th e food we bought just didn't last and we didn't have money to get more. Never true 12/12/2024 Dependent Care Answer Date Recorded Do you need help finding or paying for care for your loved ones. For example, children's attendant or elderly care for an older adult? No 12/12/2024 Education Answer Date Recorded Do you think completing more education or training, like finishing a GED, going to college, or learning a trade, would be helpful for you? No 12/12/2024 Employment and Income Answer Date Recor ded During the last four weeks, have you been actively looking for work? No 12/12/2024 Living Situation Answer Date Recorded What is your living situation? 0 12/12/2024 Comments No Sex and Gender Information Value Date Recorded Sex Assigned at Not on file Legal Sex Female 10:24 AM EST Gender Identity Not on file Sexual Orientation Not on file Obstetrics History Last Filed Vital Signs Vital Sign Reading Time Taken Comments Blood Pressure 126/72 12/18/2024 11:21 AM EDT Pulse 68 12/18/2024 11:21 AM EDT Temperature 35.9 C (96.7 F) 12/18/2024 11:21 AM EDT Respiratory Rate 18 12/18/2024 11:21 AM EDT Oxygen Saturation 98% 10/18/2024 9:47 AM EDT Inhaled Oxygen Concentration - - Weight 88.9 kg (196 lb) 12/18/2024 11:21 AM EDT Height 162.6 cm (5' 4 ) 12/18/2024 11:21 AM EDT Body Mass Index 33.64 12/18/2024 11:21 AM EDT Plan of Treatment Upcoming Encounters Date Type Department Care Team (Late st Contact Info) Description 01/17/2025 1:15 PM EDT Appointment Bone Density [address] [place] [address] 01/22/2025 2:30 PM EDT Appointment [facility] [address] [place] [phone] 04/20/2025 11:15 AM EST Office Visit Adult Medicine [address] [phone] Madi Rees MD [address] [place] [address] Health Maintenance Due Date Last Done Comments Influenza Vaccine (#1) 2025 , 01/11/2023, 01/08/2022, Additional history exists COVID-19 Vaccine ( season) 2025 11/22/2024, 01/11/2024, 01/11/2024, Additional history exists Hypertension/CHF/CAD Annual BMP Blood Test 11/20/2025 11/20/2024, 10/26/2024, 10/18/2024, Additional history exists Social Influencers of Health Screening 12/12/2025 12/12/2024 Falls Risk Assessment 12/18/2025 12/18/2024, 023 Medicare Annual Wellness Visit 12/18/2025 12/18/2024 Breast Cancer Screening 02/25/2026 02/26/20 24, 02/26/2024, 12/04/2020 Cholesterol Screening (Lipid Panel) 02/24/2029 02/25/2024, 02/25/2024 Osteoporosis Screening (Bone Density Screening) 07/03/2029 07/04/2019 Colorectal Cancer Screening: Colonoscopy 07/25/2029 07/26/2019 DTaP,Tdap,and Td Vaccines (4 - Td or Tdap) 01/10/2034 01/11/2024, 01/11/2023, 03/10/2012 Hepatitis C Screening Completed 09/21/2012 Zoster Vaccines Completed 02/11/2023, 12/01, 01/03/2013 RSV Immunization Adult Patients Completed 02/19/2023 Depression Screening Completed 12/12/2024, 01/12/20 23 Pneumococcal Vaccine: 50+ Years Completed 12/18/2024, 02/14/2020, 11/04/2016, Additional history exists HIB Vaccines Aged Out No longer eligi ble based on patient's age to complete this topic HPV Vaccines Aged Out No longer eligi ble based on patient's age to complete this topic Hepatitis A Vaccines Aged Out No long er eligible based on patient's age to complete this topic Hepatitis B Vaccines Aged Out No long er eligible based on patient's age to complete this topic IPV Vaccines Aged Out No longer eligi ble based on patient's age to complete this topic MMR Vaccines Aged Out No longer eligi ble based on patient's age to complete this topic Meningococcal ACWY Vaccine Aged Out N o longer eligible based on patient's age to complete this topic Meningococcal B Vaccine Aged Out No l onger eligible based on patient's age to complete this topic RSV Immunization Patients Under 20 months Aged Out No longer eligible based on patient's age to complete this topic Varicella Vaccines Aged Out No longer eligible based on patient's age to complete this topic Procedures Procedure Name Priority Date/Time Associated Diagnosis Comments BASIC METABOLIC PANEL Routine 10/26/2024 1:29 PM EDT Localized swelling of lower extremity Collagenous colitis Primary hypertension MAGNESIUM Routine 10/26/2024 1:29 PM EDT Localized swelling of lower extremity Collagenous colitis Primary hypertension VAS US DUPLEX LOWER EXT VENOUS BILAT STAT 10/19/2024 1:49 PM EDT Localized swelling of lower extremity Elevated d-dimer CBC WITH AUTO DIFFERENTIAL Routine 10/18/2024 10:50 AM EDT Localized swelling of lower extremity Primary hypertension Acquired hypothyroidism Secondary adrenal insufficiency (CMS/HCC V24) Collagenous colitis Recurrent deep vein thrombosis (DVT) of lower extremity, unspecified laterality (CMS/HCC V24, CMS/HCC V28) BASIC METABOLIC PANEL Routine 10/18/2024 10:50 AM EDT Hyperkalemia D-DIMER Routine 10/18/2024 10:50 AM EDT Localized swelling of lower extremity Primary hypertension Acquired hypothyroidism Secondary adrenal insufficiency (CMS/HCC V24) Collagenous colitis Recurrent deep vein thrombosis (DVT) of lower extremity, unspecified laterality (CMS/HCC V24, CMS/HCC V28) B-TYPE NATRIURETIC PEPTIDE Routine 10/18/2024 10:50 AM EDT Localized swelling of lower extremity Primary hypertension Acquired hypothyroidism Secondary adrenal insufficiency (CMS/HCC V24) Collagenous colitis Recurrent deep vein thrombosis (DVT) of lower extremity, unspecified laterality (CMS/HCC V24, CMS/HCC V28) CBC AND DIFFERENTIAL Routine 10/18/2024 10:50 AM EDT Localized swelling of lower extremity Primary hypertension Acquired hypothyroidism Secondary adrenal insufficiency (CMS/HCC V24) Collagenous colitis Recurrent deep vein thrombosis (DVT) of lower extremity, unspecified laterality (CMS/HCC V24, CMS/HCC V28) MAGNESIUM Routine 10/18/2024 10:50 AM EDT Localized swelling of lower extremity Primary hypertension Acquired hypothyroidism Secondary adrenal insufficiency (CMS/HCC V24) Collagenous colitis Recurrent deep vein thrombosis (DVT) of lower extremity, unspecified laterality (CMS/HCC V24, CMS/HCC V28) THYROID STIMULATING HORMONE WITH REFLEX TO FREE T4 AND FREE T3 Routine 10/18/2024 10:50 AM EDT Localized swelling of lower extremity Primary hypertension Acquired hypothyroidism Secondary adrenal insufficiency (CMS/HCC V24) Collagenous colitis Recurrent deep vein thrombosis (DVT) of lower extremity, unspecified laterality (CMS/HCC V24, CMS/HCC V28) XR CHEST 2 VIEWS Routine 10/18/2024 10:3 7 AM EDT Localized swelling of lower extremity Primary hypertension SCREENING MAMMOGRAPHY BI 2-VIEW BREAST INC CAD Routine 02/26/2024 12:29 PM EDT Encounter for screening mammogram for malignant neoplasm of breast LIPID PANEL Routine 02/25/2024 DEPRESSION SCREENING Routine 01/11/2023 FALLS RISK ASSESSMENT Routine 01/11/2023 COLONOSCOPY Routine 07/26/2019 DXA BONE DENSITY STUDY 1+ SITS AXIAL SKEL Routine 07/04/2019 2:41 PM EST Unspecified menopausal and perimenopausal disorder HEPATITIS C SCREENING Routine 09/21/2012 from Last 3 Months or Most Recently Relevant to Health Maintenance Results * Magnesium (10/26/2024 1:29 PM EDT) Only the most recent of2 resultswithin the time period is included. Pathologist [facility] Magnesium 2.0 1.9 - 2.6 mg/dL LAB CHEMISTRY METHOD 10/26/2024 5:05 PM EDT [facility] Blood Venous blood specimen / Unknown Venipuncture / Unknown 10/26/2024 1:29 PM EDT 10/26/2024 1:29 PM EDT Madi Rees MD LAB BLOOD ORDERABLES Final Result [facility] [address] [place] [address], [place] [phone] * (ABNORMAL) Basic metabolic panel (10/26/2024 1:29 PM EDT) Only the most recent of2 resultswithin the time period is included. [facility] Sodium 138 133 - 145 mmol/L LAB CHEMISTRY METHOD 10/26/2024 5:05 PM EDT [facility] Potassium 4.9 3.5 - 5.5 mmol/L LAB CHEMISTRY METHOD 10/26/2024 5:05 PM EDT [facility] Chloride 99 96 - 110 mmol/L LAB CHEMISTRY METHOD 10/26/2024 5:05 PM [facility] CO2 32 21 - 32 mmol/L LAB CHE[facility]STR[facility]24 [facility] Anion Gap 7 3 - 11 LAB CHEMISTRY METHOD 10/26/2024 5:05 PM [facility] Glucose 121(H) 70 - 100 mg/dL LAB CHEMISTRY METHOD 10/26/2024 5:05 PM [facility] BUN 19 5 - 25 mg/dL LAB CHEMISTRY METHOD 10/26/2024 5:05 PM EDT [facility] Creatinine 1.06 0.50 - 1.10 mg/dL LAB CHEMISTRY METHOD 10/26/2024 5:05 PM EDT [facility] eGFR 56(L) >=60 mL/min/1. 73m2 LAB CHEMISTRY METHOD 10/26/2024 5:05 PM EDT [facility] Comment:Calculation based on the Chronic Kidney Disease Epidemiology Collaboration (CKD-EPI) equation refit without adjustment for race. BUN/Creatinine Ratio 17.9 LAB CHEMISTRY METHOD 10/26/2024 5:05 PM EDT [facility] Calcium 9.7 8.5 - 10.5 mg/dL LAB CHEMISTRY METHOD 10/26/2024 5:05 PM EDT [facility] Blood Venous blood specimen / Unknown Venipuncture / Unknown 10/26/2024 1:29 PM EDT 10/26/2024 1:29 PM EDT us Madi Rees MD LAB BLOOD ORDERABLES Final Result [facility] [address] [place] [address], [place] [phone] * Vascular US duplex lower extremity venous bilateral (10/19/2024 1:49 PM EDT) Anatomical Region Laterality Modality Vascular, Abdomen Ultrasound 10/19/2024 2:48 PM EDT Impressions 10/19/2024 2:48 PM EDT No evidence of femoro-popliteal deep venous thrombosis bilaterally. -------- FINAL REPORT -------- Dictated By: Opal Al Dictated Date: 10/19/2024 14:48 ET Assigned Physician: Opal Al Reviewed and Electronically Signed By: Opal Al Signed Date: 10/19/2024 14:48 ET Workstation ID: [id number] Transcribed By: Self Edit Transcribed Date: 10/19/2024 14:48 ET Narrative 10/19/2024 2:48 PM EDT EXAM: GRAYSCALE, COLOR AND DOPPLER VENOUS ULTRASOUND OF THE BILATERAL LOWER EXTREMITIES History: DVT Hx Leg swelling, elevated D-dimer to evaluate DVT. Comparison: No prior similar exams are available for comparison. Technique: Fine-scale, color and pulsed wave Doppler images were obtained. FINDINGS: Unremarkable respiratory variation is present in the common femoral veins. Normal venous flow and compression is demonstrated in the common femoral veins, femoral veins and popliteal veins to the level of the trifurcation. The visualized posterior tibial veins and peroneal veins are patent. Procedure Note Opal Al MD - 10/19/2024 EXAM: GRAYSCALE, COLOR AND DOPPLER VENOUS ULTRASOUND OF THE BILATERALLOWER EXTREMITIES History: DVT Hx Leg swelling, elevated D-dimer to evaluate DVT. Comparison: No prior similar exams are available for comparison. Technique: Fine-scale, color and pulsed wave Doppler images wereobtained. FINDINGS: Unremarkable respiratory variation is present in the common femoral veins.Normal venous flow and compression is demonstrated in the common femoralveins, femoral veins and popliteal veins to the level of the trifurcation.The visualized posterior tibial veins and peroneal veins are patent. IMPRESSION: No evidence of femoro-popliteal deep venous thrombosis bilaterally. -------- FINAL REPORT -------- Dictated By: Opal Al Dictated Date: 10/19/2024 14:48 ET Assigned Physician: Opal Al Reviewed and Electronically Signed By: Opal Al Signed Date: 10/19/2024 14:48 ET Workstation ID: [id number] Transcribed By: Self Edit Transcribed Date: 10/19/2024 14:48 ET us Madi Rees MD CV VASCULAR PROCEDURES Isabelle valencia Result * Thyroid stimulating hormone with reflex to free t4 and free t3 (10/18/2024 10:50 AM EDT) TSH 1.75 0.40 - 4.00 mcIU/mL LAB CHEMISTRY METHOD 10/18/2024 4:40 PM EDT [facility] Blood Venous blood specimen / Unknown Venipuncture / Unknown 10/18/2024 10:50 AM EDT 10/18/2024 10:50 AM EDT us Madi Rees MD LAB BLOOD ORDERABLES Final Result [facility] [address] [place] [address], * (ABNORMAL) CBC auto differential (10/18/2024 10:50 AM EDT) WBC 4.0(L) 4.8 - 10.8 K/mcL LAB HEMETOLOGY METHOD 10/18/2024 12:29 PM EDT [facility] RBC 4.00 3.80 - 4.80 M/mcL LAB HEMETOLOGY METHOD 10/18/2024 12:29 PM EDT [facility] Hemoglobin 11.4(L) 11.5 - 16.0 g/dL LAB HEMETOLOGY METHOD 10/18/2024 12:29 PM EDT [facility] Hematocrit 37.3 35.0 - 47.0 % LAB HEMETOLOGY METHOD 10/18/2024 12:29 PM EDT [facility] MCV 93.3 79.0 - 98.0 FL LAB HEMETOLOGY METHOD 10/18/2024 12:29 PM EDT [facility] MCH 28.5 27.0 - 32.0 pcg LAB HEMETOLOGY METHOD 10/18/2024 12:29 PM T [facility] MCHC 30.6(L) 32.0 - 37.0 g/dL LAB HEMETOLOGY METHOD 10/18/2024 12:29 PM T [facility] RDW 12.2 11.0 - 15.0 % LAB HEMETOLOGY METHOD 10/18/2024 12:29 PM [facility] Platelets 310 130 - 400 K/mcL LAB HEMETOLOGY METHOD 10/18/2024 12:29 PM [facility] MPV 10.2 7.0 - 11.0 FL LAB HEMETOLOGY METHOD 10/18/2024 12:29 PM [facility] NRBC 0.0 <1.0 % LAB HEMETOLOGY METHOD 10/18/2024 12:29 PM [facility] NRBC Absolute 0.00 <0.10 K/mcL LAB HEMETOLOGY METHOD 10/18/2024 12:29 PM [facility] Neutrophils Relative 60.2 % LAB HEMETOLOGY METHOD 10/18/2024 12:29 PM [facility] Lymphocytes Relative 21.9 % LAB HEMETOLOGY METHOD 10/18/2024 12:29 PM [facility] Monocytes Relative 15.6 % LAB HEMETOLOGY METHOD 10/18/2024 12:29 PM [facility] Eosinophils Relative 1.0 % LAB HEMETOLOGY METHOD 10/18/2024 12:29 PM [facility] Basophils Relative 1.0 % LAB HEMETOLOGY METHOD 10/18/2024 12:29 PM [facility] Immature Granulocytes Relative 0.3 % LAB HEMETOLOGY METHOD 10/18/2024 12:29 PM [facility] Neutrophils Absolute 2.40 1.50 - 7.00 K/mcL LAB HEMETOLOGY METHOD 10/18/2024 12:29 PM [facility] Lymphocytes Absolute 0.87(L) 1.00 - 5.00 K/mcL LAB HEMETOLOGY METHOD 10/18/2024 12:29 PM [facility] Monocytes Absolute 0.62 0.20 - 1.00 K/mcL LAB HEMETOLOGY METHOD 10/18/2024 12:29 PM EDT [facility] Eosinophils Absolute 0.04 0.00 - 0.50 K/[facility] LAB HEMETOLOGY METHOD 10/18/2024 12:29 PM EDT [facility] Basophils Absolute 0.04 0.00 - 0.20 K/[facility] LAB HEMETOLOGY METHOD 10/18/2024 12:29 PM EDT [facility] Immature Granulocytes Absolute 0.01 0.00 - 0.03 K/[facility] LAB HEMETOLOGY METHOD 10/18/2024 12:29 PM EDT [facility] Blood Venous blood specimen / Unknown Venipuncture / Unknown 10/18/2024 10:50 AM EDT 10/18/2024 10:50 AM EDT us Madi Rees MD LAB BLOOD ORDERABLES Final Result [facility] [address] [place] [address], * (ABNORMAL) D-Dimer (10/18/2024 10:50 AM EDT) D-Dimer, Quant (D-DU) 235(H) <=230 ng/mL DDU LAB COAGULATION METHOD 10/18/2024 12:23 PM EDT [facility] Blood Venous blood specimen / Unknown Venipuncture / Unknown 10/18/2024 10:50 AM EDT 10/18/2024 10:50 AM EDT Narrative [facility] - 10/18/2024 12:23 PM EDT D-Dimer <230 ng/mL (D-Dimer units) is the threshold for exclusion of DVT/PE. D-Dimer may be elevated in: Critically ill, severely infected, trauma patients, DIC, acute CVA, acute MD, unstable angina, AF, old age, , and smoking. D-Dimer may be decreased with: Initiation of heparin therapy and oral anticoagulants. us Madi Rees MD LAB BLOOD ORDERABLES Final Result Performing Organization Address [facility]/ZIP Co de Phone Number [facility] [address] [place] [address], [place] [phone] * (ABNORMAL) B-type natriuretic peptide (10/18/2024 10:50 AM EDT) BNP 132(H) <=100 pcg/mL LAB CHEMISTRY METHOD 10/18/2024 1:18 PM EDT [facility] Blood Venous blood specimen / Unknown Venipuncture / Unknown 10/18/2024 10:50 AM EDT 10/18/2024 10:50 AM EDT Madi Rees MD LAB BLOOD ORDERABLES Final Result Performing Organization Address [facility] de Phone Number [facility] [address] [place] [address], [place] [phone] * XR Chest 2 Views (10/18/2024 10:37 AM EDT) Anatomical Region Laterality Modality Body Radiographic Beverly ging 10/18/2024 3:03 PM EDT Impressions 10/18/2024 3:06 PM EDT No acute cardiopulmonary process. -------- FINAL REPORT -------- Dictated By: Opal Al Dictated Date: 10/18/2024 15:03 ET Assigned Physician: Opal Al Reviewed and Electronically Signed By: Opal Al Signed Date: 10/18/2024 15:06 ET Workstation ID: [id number] Transcribed By: Self Edit Transcribed Date: 10/18/2024 15:03 ET Narrative 10/18/2024 3:06 PM EDT HISTORY: Increased leg swelling, to evaluate CHF TECHNIQUE: PA and lateral radiographs of the chest COMPARISON: Chest radiograph from 09/15/2016 FINDINGS: There is a normal cardiomediastinal silhouette. The lungs are clear. Mild degenerative changes of the thoracic spine. Procedure Note Opal Al MD - 10/18/2024 HISTORY: Increased leg swelling, to evaluate CHF TECHNIQUE: PA and lateral radiographs of the chest COMPARISON: Chest radiograph from 09/15/2016 FINDINGS: There is a normal cardiomediastinal silhouette. The lungs are clear. Milddegenerative changes of the thoracic spine. IMPRESSION: No acute cardiopulmonary process. -------- FINAL REPORT -------- Dictated By: Opal Al Dictated Date: 10/18/2024 15:03 ET Assigned Physician: Opal Al Reviewed and Electronically Signed By: Opal Al Signed Date: 10/18/2024 15:06 ET Workstation ID: [id number] Transcribed By: Self Edit Transcribed Date: 10/18/2024 15:03 ET us Madi Rees MD IMG XR PROCEDURES Final Res ult * SCREENING MAMMOGRAPHY BI 2-VIEW BREAST INC CAD (02/26/2024 12:29 PM EDT) Anatomical Region Laterality Modality Radiographic Beverly ging 08/23/2023 11:3 2 AM EDT Narrative 02/28/2024 6:10 PM EDT This is a summary report. The complete report is available in the patient's medical record. If you cannot access the medical record, please contact the sending organization for a detailed fax or copy. Exam: Screening mammogram Findings: Digital bilateral full-field screening mammography is performed with tomosynthesis and interpreted with the aid of computer-aided detection. Comparison is made with 12/04/2020. Breast parenchyma is composed of scattered fibroglandular densities. No new suspicious mass, architectural distortion, or suspicious calcifications. Impression: No mammographic evidence of malignancy. BI-RADS 1 - negative [facility] [address] [place] [address] Procedure Note Dana Weeks MD - 03/04/2024 This is a summary report. The complete report is available in thepatient's medical record. If you cannot access the medical record, pleasecontact the sending organization for a detailed fax or copy. Exam: Screening mammogram Findings: Digital bilateral full-field screening mammography is performedwith tomosynthesis and interpreted with the aid of computer-aideddetection. Comparison is made with 12/04/2020. Breast parenchyma is composed of scattered fibroglandular densities. Nonew suspicious mass, architectural distortion, or suspiciouscalcifications. Impression: No mammographic evidence of malignancy. BI-RADS 1 - negative [id number] [place] [address] Madi Rees MD IMG XR PROCEDURES Final Res ult * Lipid panel (02/25/2024) Pathologist [facility] LDL/HDL Ratio 2 0 - 4 Triglycerides 125 0 - 150 mg/dL Cholesterol 180 0 - 200 mg/dL HDL 100 >=40 mg/dL LDL Cholesterol 55 0 - 100 mg/dL Blood Venous blood specimen / Unknown Result [facility] Provider LAB BLOOD ORDERABLES Isabelle l Result * Falls Risk Assessment (01/11/2023) [facility] Falls Risk Assessment Abstracted [facility] Provider HEALTH MAINTENANCE Final Result * Depression Screening (01/11/2023) Pathologist [facility] Depression Screening Abstracted [facility] Provider HEALTH MAINTENANCE Final Result * Colonoscopy (07/26/2019) Pathologist [facility] Colonoscopy No interpretation , abstracted Anatomical Region Laterality Modality Other [facility] Provider HEALTH MAINTENANCE Final Result * DXA BONE DENSITY STUDY 1+ SITS AXIAL SKEL (07/04/2019 2:41 PM EST) Anatomical Region Laterality Modality Bone Densitometr y 05/15/2019 12:4 9 PM EST Narrative 07/04/2019 3:46 PM EST BONE DENSITY Left wrist T-score is -0.7 (SD relative to 20-29 y/o adult) Z-score is +1.1 (SD relative to age matched peers) This is normal by criteria defined by the WHO. Left Hip T-score is -1.0 Z-score is +0.7 This is normal by criteria defined by the WHO. Impression: Based on the World Health Organization criteria, Arabella Noriega should be classified as having normal bone density. [facility] Department of Internal Medicine recommends using National Osteoporosis Foundation (NOF) guidelines in treatment decisions related to osteoporosis. NOF guidelines suggest considering treatment for postmenopausal women and men aged 50 or older presenting with the following: History of hip or vertebral fracture. T-score less than or equal to -2.5 (DXA) at the femoral neck, total hip, or spine, after appropriate evaluation to exclude secondary causes. Low bone mass (T-score between -1.0 and -2.5 at the femoral neck or spine) AND a 10-year probability of a hip fracture greater than or equal to 3% OR a 10-year probability of a major osteoporosis-related fracture greater than or equal to 20% based on the [place]-adapted WHO algorithm Please note that all treatment decisions require clinical judgment and consideration of individual patient factors, including patient preferences, co-morbidities, previous drug use, risk factors not captured in the FRAX model (e.g., frailty, falls, vitamin D deficiency, increased bone turnover, interval significant decline in bone density) and possible under- or over-estimation of fracture risk by FRAX. Procedure Note Андрей Mcghee - 04/21/2022 BONE DENSITY Left wrist T-score is -0.7 (SD relative to 20-29 y/o adult) Z-score is +1.1 (SD relative to age matched peers) This is normal by criteria defined by the WHO. Left Hip T-score is -1.0 Z-score is +0.7 This is normal by criteria defined by the WHO. Impression: Based on the World Health Organization criteria, Arabella Noriega should beclassified as having normal bone density. The [facility] Department of Internal Medicine recommendsusing National Osteoporosis Foundation (NOF) guidelines in treatmentdecisions related to osteoporosis. NOF guidelines suggest consideringtreatment for postmenopausal women and men aged 50 or older presentingwith the following: History of hip or vertebral fracture. T-score less than or equal to -2.5 (DXA) at the femoral neck, total hip,or spine, after appropriate evaluation to exclude secondary causes. Low bone mass (T-score between -1.0 and -2.5 at the femoral neck or spine)AND a 10-year probability of a hip fracture greater than or equal to 3% ORa 10-year probability of a major osteoporosis-related fracture greaterthan or equal to 20% based on the [place]-adapted WHO algorithm Please note that all treatment decisions require clinical judgment andconsideration of individual patient factors, including patientpreferences, co-morbidities, previous drug use, risk factors not capturedin the FRAX model (e.g., frailty, falls, vitamin D deficiency, increasedbone turnover, interval significant decline in bone density) and possibleunder- or over-estimation of fracture risk by FRAX. Jaja NGUYEN DXA PROCEDURES Final Result * Hepatitis C Screening (09/21/2012) [facility] Hepatitis C Screening Abstracted Historical Provider HEALTH MAINTENANCE Final Result from Last 3 Months or Most Recently Relevant to Health Maintenance Insurance MEDICARE [facility] Care Teams Envelope Maker Relationship Specialty Start Date End Date Madi Rees MD [address] [place] [address] PCP - General Internal Medicine 10/06/21
--- OUTSIDE RECORDS SUMMARY | 2025-01-11 08:04 | XMS_ITS ---
Author Name [facility] Organization Unknown Care Team Organization Name Specialty Phone Email Start Date End Da te [facility] Geronimo Davis Primary Care 04/14/202312/19 [facility] Maggy Barnett Primary Care 10/09/2022 12/20/19 24 [facility] Maggy Barnett Primary Care 07/08/2022 12/20/19 24 [facility] Rossi Urena Primary Care 03/10/2022
== END 2025-01-11 09:05 | disposition home or self-care (01) ==
LOC: HO.ENCR 08:00
PROVIDERS: PCP Internal Medicine; Visit Provider Student in an Organized Health Care Education/Training Program
DX: E27.49 Other adrenocortical insufficiency (principal); E04.2 Nontoxic multinodular goiter; E03.9 Hypothyroidism, unspecified
CPT/HCPCS: 99205

== ENCOUNTER → 2025-01-11 07:59 | Outpatient (BNVA) | payer MEDICARE, SELFPAY | PROVIDERS: PCP Internal Medicine; Visit Provider Student in an Organized Health Care Education/Training Program | DX: E04.2 Nontoxic multinodular goiter (principal); E27.49 Other adrenocortical insufficiency; E03.8 Other specified hypothyroidism | CPT/HCPCS: 99202 ==

== ENCOUNTER 2025-02-22 13:56 | Outpatient (AMB) | payer MEDICARE, SELFPAY ==
--- NOTE | 2025-02-22 14:18 | A.OFFVIS_ITS ---
Vital Signs 02/22/25 14:19 Height 5 ft 4 in Weight 190 lb BMI 32.6 BP 157/76 H Blood Pressure Location Lt brachial Position Sitting Pulse 58 Pulse Oximetry (%) 97 Oxygen Delivery Method Room Air Intake Visit Reasons: colitis Intake Note: Patient new consult for Colitis Patient cc: nauseas on and off, diarrhea on and off, abdominal bloating come and goes, GERD on and off. Patient said she needed refills for Bentyl 10 mg, Lomotil 2.5 mg and Loperamide 2 mg. Also she wanted to talik about Xifaxan med. 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 Accompanied by: Self / Same As Patient Allergies amoxicillin (From Augmentin) Allergy (Severe, Verified 02/22/25 14:18) Hives clavulanic acid (From Augmentin) Allergy (Severe, Verified 02/22/25 14:18) Hives morphine Allergy (Severe, Verified 02/22/25 14:18) Hives, itching Medication List - Last Reconciled 02/22/25 by Nina Mcmahan CNP albuterol sulfate 90 mcg/actuation 2 puffs inhalation Q4H PRN amitriptyline 10 mg PO BEDTIME apixaban (Eliquis) 2.5 mg PO BID azelastine 1 spray intranasal BID carvedilol 12.5 mg PO BID cholecalciferol (vitamin D3) (Vitamin D3) 50 mcg PO DAILY colestipol PO conjugated estrogens (Premarin) 0.625 mg vaginal 3XW dicyclomine 20 mg PO QID PRN diphenoxylate-atropine 2.5-0.025 mg (Lomotil) 1 tab PO TID PRN fenofibrate 54 mg PO BEDTIME furosemide 20 mg PO DAILY hydrochlorothiazide 12.5 mg PO DAILY hydrocortisone orally; Take 10 mg in AM and 5 mg at 2 PM hydrocortisone sod succ (PF) (Solu-Cortef Act-O-Vial (PF)) 100 mg (2 mL) IM D AILY levothyroxine (Synthroid) 125 mcg PO DAILY loperamide 2 mg PO Q6H PRN losartan 100 mg PO DAILY needle (disp) 19 G (BD Regular Bevel Douglas) As directed to draw hydrocortisone in case of emergency use ondansetron HCl 4 mg PO Q6H PRN oxycodone mg PO pramipexole 0.125 mg PO BEDTIME pravastatin 40 mg PO DAILY safety needles (BD SafetyGlide Needle) As directed to inject hydrocortisone 100 mg in case of emergency syringe with needle, safety (Aqinject Safety Syringe) As directed to inject hydrocortisone 100 mg in case of emergency HPI HPI colitis: Details: Patient is a 74-year-old female with PMH of hypothyroidism, hypertension, hyperlipidemia, history of DVT on Eliquis. Referred for questionable colitis. Patient with hx of collagenous (microscopic) colitis, initially dx five years ago by GI at outside facility after colonoscopy and EGD, presents for ongoing management after provider correction. Reports acute onset of uncontrollable watery diarrhea five days prior, which responded well to initiation of cholestyramine powder (12?16 g nightly, then maintained at 12 g); stools normalized over past three days without recurrence of blood or marked abdominal pain. Prior to this flare, pt experienced intermittent lower abdominal cramping that has largely resolved with cholestyramine, with rare need for dicyclomine. Associated mild nausea noted only once, resolved with single dose ondansetron, no vomiting. Appetite described as normal to mildly decreased but substantially improved since last completed steroid (budesonide) course this summer for prior flare. History notable for rare esophageal candidiasis treated successfully with short courses of fluconazole. Reports heartburn ~1x/wk, managed with daily pantoprazole and occasional antacids (Tums, Pepto, Jazmyne Boelus), with good effect. Denies unintentional weight changes. Relevant comorbidities include anemia (recent Dx per PCP), osteoporosis, and recent surgical history including minor spine AND bilateral cataract surgery (Dec/Jan 2025), all post-budesonide wean. Past ERCP in 2016 complicated by pancreatic duct injury coincided with initial onset of enteric symptoms. No hx of GI or other malignancy. Med rec includes probiotics daily, OTC antacids/stomach remedies prn, loperamide, diphenoxylate/atropine, and dicyclomine as needed. No NSAID use reported. No concerning family hx for GI malignancy. Patient denies: fever/chills, vomiting, egurgitation,dysphasia, unintentional wt loss or melena/hematochezia. Social hx: -ETOH use, 1-2x/year -denies recreational drug use - former smoker, cessation 20 years ago - family hx as below -denies personal hx of CA -tolerated anesthesia in the past without difficulty [facility] Medical History (Updated 02/22/25 @ 16:21 by Nina Mcmahan CNP) Anemia Esophageal candidiasis Loose stools Hypothyroid Multinodular goiter (nontoxic) Secondary adrenal insufficiency Cataracts, bilateral GERD (gastroesophageal reflux disease) HLD (hyperlipidemia) HTN (hypertension) DVT (deep venous thrombosis) Hypercholesterolemia Trigeminal neuralgia Pituitary tumor Colitis Thyroid disease Surgical History Hx of right cataract extraction (12/25/24) History of removal of retained hardware (12/01/24) Hx of salpingo-oophorectomy, bilateral Hx of abdominal hysterectomy (1975) History of esophagogastroduodenoscopy (EGD) Hx of colonoscopy History of laminectomy Hx of breast surgery History of back surgery Family History Mother HTN (hypertension) Macular edema Arthritis Father Thyroid disease Diabetes Liver cancer Rheumatoid arthritis Sister Arthritis COPD (chronic obstructive pulmonary disease) Macular degeneration Social History Household Members: Family Are you a primary primary care nurse to a significant other at home: No Do you presently have visiting nurse or other home services: No Alcohol intake: never Patient Tobacco Use Status: Former Tobacco user Tobacco use type: Cigarette Cigarette Packs Per Day: 3 Years Smoked: 56.5 Review of Systems Const Reports as per HPI ENT Reports as per HPI Card Reports as per HPI Resp Reports as per HPI GI Reports as per HPI Reports as per HPI Physical Exam Vital Signs: Last Vital Signs Pulse 58 02/22/25 14:19 BP 157/76 H 02/22/25 14:19 Pulse Ox 97 02/22/25 14:19 Oxygen Delivery Method Room Air 02/22/25 14:19 BMI result Body Mass Index 32.6 Const General: healthy appearing, no acute distress and well developed Nutritional Appearance: average body habitus Orientation/consciousness: patient oriented x3 HEENT Head: Yes normal to inspection, Yes normocephalic and Yes atraumatic Face and sinus: Yes normal facial exam Eyes General: appearance normal, both eyes and all related structures Neck Neck: Yes normal visual inspection Resp Effort & Inspection: normal respiratory effort, able to speak in complete sentences, no tracheal deviation and symmetric chest movement Cardio Jugular venous distension: no JVD GI Auscultation: normal bowel sounds Neuro General: patient oriented x3 Gait exam (Neuro): Normal gait present Psych Appearance: grossly normal Mental Status: mental status grossly normal Speech and movement: Normal speech and movement present Affect: normal affect Attitude: cooperative Thought process: Normal thought process present Thought content: Normal thought content present Insight: Good insight present (Psych) Judgement: Good judgement present (Psych) Assessment & Plan Assessment & Plan (1) Loose stools: Code(s): R19.5 - Other fecal abnormalities Category: Medical Plan: Subjective Hx, referral document with limited information. Outside colonoscopic findings, and symptom pattern consistent with microscopic colitis; proven re sponse to bile acid sequestrant. Additional Testing: - Request/review prior records from Dr. Brunilda Mata, Dr. Thornton (lab results including baseline CBC/chem, prior colonoscopy/EGD histo, prior stool studies if available, prior imaging) - Labs: Consider repeat CBC (monitor anemia), CMP - Assess need for surveillance colonoscopy (last 5y ago) Medication Management: - Continue cholestyramine powder 12g QHS; adjust as needed for sx - Continue pantoprazole 40mg QD; continue prn antacids for breakthrough; avoid PPI overuse - Maintain dicyclomine, loperamide, fluconazole (for yeast) as needed - Refill above meds via mail/retail pharmacy as appropriate Lifestyle Recommendations: - Maintain current low-fat, low-lactose diet; continue avoiding fried/trigger foods - Encourage healthy balanced intake, calcium and vitamin D supplementation for osteoporosis - Reinforce no NSAID use; avoid unnecessary abx - Encourage regular hydration Follow-Up: - 3 months in GI clinic, sooner if symptom recurrence, change, or adverse effects - Consider earlier f/u if unable to obtain previous records or if surveillance endoscopy indicated (2) Esophageal candidiasis: Code(s): B37.81 - Candidal esophagitis Category: Medical Plan: Documented recurrent episodes w/dysphagia, responsive to fluconazole Additional Testing: None at this time unless new or resistant symptoms occur Medication Management: Continue fluconazole prn Lifestyle Recommendations: Monitor for sx recurrence, avoid unnecessary broad- spectrum abx Follow-Up: As needed for sx (3) Anemia: Code(s): D64.9 - Anemia, unspecified Category: Medical Qualifiers: Anemia type: unspecified type Qualified Code(s): D64.9 - Anemia, unspecified Plan: PCP reports anemia, etiology unclear. GI blood loss considered but not suspected clinically. Additional Testing: Review CBC, iron studies, B12/folate per outside records Medication Management: Continue supplements as prescribed Lifestyle Recommendations: Balanced intake, optimize GI control Follow-Up: As above; coordinate with PCP Plan Follow-up in 3 months or sooner as needed Time: I spent a total of 45 minutes on the date of encounter which includes: Preparing to see the patient (reviewed previous documentation, test results and medical history) Performing a medically appropriate exam and/or evaluation Ordering medications, tests, and procedures Documenting clinical information in the health record Medications: New pantoprazole Take 1 tablet daily. Best taken on an empty stomach, 30 minutes before food 40 mg PO QAM [address] tablet on tongue and allow to dissolve three times a day NEEDED for nausea 4 mg translingual Q8H PRN 20 tabs 0RF nausea and vomiting cholestyramine no meds 1 hr before/4-6 hr after dose 12 grams PO DAILY 378 grams 6RF Changed From dicyclomine 20 mg PO QID PRN To dicyclomine Take 1 tablet up to 4 times a day as needed for cramping 20 mg PO QID PRN 180 tabs 1RF abdominal pain From loperamide 2 mg PO Q6H PRN To loperamide 4 mg, followed by 2 mg after each loose stool; maximum: 16 mg/day 2 mg PO Q6H PRN 60 caps 1RF loose stool Coding Level of Care Code New Pt New Pt Level 4 (47317) Patient Type New Diagnoses Loose stools R19.5 Esophageal candidiasis B37.81 Anemia, unspecified type D64.9 Anemia type: unspecified type
[2025-02-22 14:19] VITALS: BP 157/76; PULSE 58; O2SAT 97; BMI 32.6
--- OUTSIDE RECORDS SUMMARY | 2025-02-22 17:50 | XMS_ITS | Clinical Summary ---
Author Organization [facility] [address] [facility] Address [address] [place] [address] Phone Care Team Providers Care Hospital Account Liaison Name Role Phone Madi Rees MD Primary Care Provider [phone] Allergies Active Allergy Reactions Criticality Noted Date Comments Amoxicillin-Pot Clavulanate Itching 01/01/20 12 Morphine Sulfate Itching 01/01/2012 Rosuvastatin Calcium 06/17/2017 Crestor Medications amitriptyline (ELAVIL) 10 mg tablet Take 1 tablet (10 mg total) by mouth at bedtime. 01/01/20 23 Active multivitamin with minerals (Multiple Vitamin-[place] als) tablet Take by mouth daily. Active L. acidophilus/B ifid. animalis (DAILY PROBIOTIC ORAL) Take by mouth. Activ e cholecalcifer ol (VITAMIN D-3) 50 mcg (2,000 unit) capsule Take by mouth. Activ e ondansetron (ZOFRAN) 4 mg tablet Take 1 tablet (4 mg total) by mouth every 6 (six) hours if needed for nausea. 20 tablet 2 03/31/20 24 Active vit C/vit E ac/selenium/g inkgo (MEMORY COMPLEX ORAL) Take by mouth 1 (one) time each day. Neuriva Active losartan (COZAAR) 100 mg tablet TAKE 1 TABLET DAILY 90 tablet 1 10/03/19 25 Active levothyroxine (SYNTHROID, LEVOTHROID) 125 mcg tablet Take 1 tablet (125 mcg total) by mouth 1 (one) time each day. 90 each 1 10/14/19 25 Active pramipexole (MIRAPEX) 0.25 mg tablet Take 1 tablet (0.25 mg total) by mouth at bedtime. 90 each 1 10/21/19 25 026 Active dicyclomine (BENTYL) 10 mg capsule Take 1 capsule (10 mg total) by mouth 4 (four) times a day if needed (abdominal spasms). 90 capsule 2 10/27/19 25 Active hydrocortison e (CORTEF) 10 mg [...] split. 90 each 1 12/19/19 25 Active diphenoxylate -atropine (LOMOTIL) 2.5-0.025 mg per tablet Take 1 tablet by mouth 3 (three) times a day if needed for diarrhea. Max Daily Amount: 3 tablets 60 tablet 01/23/20 25 Active pantoprazole (PROTONIX) 40 mg EC tablet Take 1 tablet (40 mg total) by mouth 1 (one) time each day. Do not crush, chew, or split. 90 each 1 01/23/20 25 Active loperamide (IMODIUM) 2 mg capsule Take 1 capsule (2 mg total) by mouth 4 (four) times a day if needed for diarrhea. 360 capsule 01/26/20 25 Active colestipoL (COLESTID) 1 gram tablet Take 1 tablet (1 g total) by mouth 4 (four) times a day. 120 tablet 02/06/20 25 Active albuterol HFA (PROAIR HFA ; PROVENTIL HFA ; VENTOLIN HFA) 90 mcg/actuation inhaler Inhale 2 puffs by mouth every 4 (four) hours if needed for wheezing. 18 g 1 02/08/20 25 Active furosemide (LASIX) 40 mg tablet Take 0.5 tablets (20 mg total) by mouth 1 (one) time each day. 90 each 1 02/08/20 25 Active azelastine (ASTELIN) 137 mcg (0.1 %) nasal spray Administer 1 spray into each nostril 2 (two) times a day. Use in each nostril as directed 30 mL 1 02/08/20 25 Active hydrALAZINE (APRESOLINE) 10 mg tablet Take 1 tablet (10 mg total) by mouth 2 (two) times a day. 60 each 02/08/20 25 Active estradioL (ESTRACE) 0.01 % (0.1 mg/gram) vaginal cream APPLY 1/2 GRAM ON MONDAYS, WEDNESDAYS AND FRIDAYS 42.5 g 1 02/14/20 25 Active colestipoL (COLESTID) 1 gram tablet Take 1 Tablet by mouth 4 times daily as needed (diarrhea). 02/07/20 24 025 Discontinued(R eorder) albuterol HFA (PROAIR HFA ; PROVENTIL HFA ; VENTOLIN HFA) 90 mcg/actuation inhaler USE 2 INHALATIONS ORALLY EVERY 4 HOURS NEEDED FORCOUGH OR WHEEZING 18 g 1 07/25/19 25 025 Discontinued(R eorder) estradioL (ESTRACE) 0.01 % (0.1 mg/gram) vaginal cream APPLY 1/2 GRAM ON MONDAYS, WEDNESDAYS AND FRIDAYS 42.5 g 1 10/20/19 25 025 Discontinued furosemide (LASIX) 40 mg tablet Take 0.5 tablets (20 mg total) by mouth 1 (one) time each day. 90 each 1 11/14/19 025 Discontinued(R eorder) loperamide (IMODIUM) 2 mg capsule Take 1 capsule (2 mg total) by mouth 4 (four) times a day if needed for diarrhea. 360 capsule 12/15/19 025 Discontinued(R eorder) azelastine (ASTELIN) 137 mcg (0.1 %) nasal spray USE 1 SPRAY IN EACH NOSTRILTWICE DAILY, DIRECTED 30 mL 1 12/29/19 025 Discontinued(R eorder) hydrALAZINE (APRESOLINE) 10 mg tablet Take 1 tablet (10 mg total) by mouth 2 (two) times a day. 60 each 01/23/20 Discontinued(R eorder) Hospital, Clinic, or Other Facility Administered Medication Ordered Dose Route Frequency Start Date End Date Status lidocaine (XYLOCAINE) 1 % injection 0.5 mLIndications:Carpal tunnel syndrome on left .5 mL inj Once PRN Procedure 01/25/2025 01/25/2025 Ended triamcinolone acetonide (KENALOG-40) 40 mg/mL injection 40 mgIndications:Carpal tunnel syndrome on left 40 mg IAtc Once PRN Procedure 01/25/2025 01/25/2025 Ended Active Problems Problem Noted Date Diagnosed Date Gastroesophageal reflux disease without esophagi tis 07/18/2024 Allergic rhinitis 03/10/2024 Hypogammaglobulinemia ([facility] V24) 03/10/2024 Trigeminal neuralgia 03/10/2024 Overview (03/10/2024): Had surgery to relieve 2012 - not effective Restless leg syndrome 03/10/2024 Hypothyroidism due to acquired atrophy of thyroi d 08/23/2023 Mild intermittent asthma without complication Hypertriglyceridemia 08/23/2023 SI joint arthritis ([facility] V24) 08/23/2023 Pelvic pain 04/02/2022 Overview (03/10/2024): [...] t3; Future Microscopic colitis 08/10/2019 Esophageal candidiasis ([facility] V24, [facility] V28 ) 08/10/2019 Asthma 07/20/2019 Chronic headache disorder 06/02/2017 Overview (03/10/2024): Onset approx 2015. Postprocedural retroperitoneal abscess 7 Overview (03/10/2024): Retroperitoneal perforation, ERCP, 03/10/2016 Elevated alkaline phosphatase level 04/07/2016 Overview (03/10/2024): Dilated pancreatic duct, perforation at time of ERCP and sphincterotomy Mixed hyperlipidemia 02/23/2014 Secondary adrenal insufficiency ([facility] V24) Assessment & Plan (12/18/2024 12:38 PM EDT): Orders: CBC and differential; Future Basic metabolic panel; Future Thyroid stimulating hormone with reflex to free t4 and free t3; Future Jugular vein thrombosis, left 01/18/2014 Overview (03/10/2024): No flow left internal jugular vein, left sigmoid and transverse sinuses. Lifelong anticoagulation recommended by Dr. Hills Pituitary adenoma ([facility] V24, [facility] V28) Overview (03/10/2024): 5 mm on MRI of 12/29/2013 Chronic left-sided low back pain with left-sided sciatica 03/21/2013 Overview (03/10/2024): Per pt: [facility], Dr. 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 Jose C Tariq [phone] Cervicalgia 09/21/2012 Chronic pain 03/10/2012 Hypothyroid 03/10/2012 [...] Encounters Date Type Department Care Team Description 01/25/2025 11:30 AM EDT Consult Orthopedic Surgery - [place] [address] [place] [id number] Rona Winn PA Arthritis of left hand (Primary Dx); Carpal tunnel syndrome on left 01/22/2025 2:09 PM EDT - 01/22/2025 11:59 PM EDT Hospital Encounter [facility] [address] [place] [address] Carpal tunnel syndrome on left Discharge Disposition: Home or Self Care 01/17/2025 12:27 PM EDT - 01/17/2025 11:59 PM EDT Hospital Encounter Bone Density - [place] [address] [place], [place] [phone] Encounter for screening for osteoporosis Discharge Disposition: Home or Self Care 12/22/2024 Telephone Adult Medicine [address] [phone] Madi Rees MD 12/18/2024 11:30 AM EDT Office Visit Adult [address] [phone] Madi Rees MD Primary hypertension (Primary Dx); Recurrent deep vein thrombosis (DVT) of lower extremity, unspecified laterality ([facility] V24, [facility] V28); Collagenous colitis; Secondary adrenal insufficiency ([facility] V24); Acquired hypothyroidism; Carpal tunnel syndrome on left; CKD (chronic kidney disease) stage 2, GFR 60-89 ml/min; Iron deficiency anemia, unspecified iron deficiency anemia type; Encounter for subsequent annual wellness visit (AWV) in Medicare patient; Need for vaccination against Streptococcus pneumoniae from Last 3 Months Immunizations Immunization Administration Dates Next Due COVID-19 (Pfizer/Comirnaty) 12yo [...] subun it RSVpreF, 0.5mL, Preservative Free (Arexvy) 50yo and older 02/19/2023 Td Tetanus diptheria (Tdvax) 7yo and older 01/11/2023 Tdap Tetanus diptheria acell ular pertussis (Boostrix; Adacel) 7yo and older 01/11/2024,03/10/2012 Zoster Live 01/03/2013 Zoster recombinant (Shingrix ) 19yo and older 02/11/2023,12/11/2022 Surgical History Surgery Date Site/Laterality Comments CERVICAL LAMINECTOMY PROCEDURE: HISTORICAL CERV LAMINECTOMY; COMMENT: 1992 BACK SURGERY PROCEDURE: HISTORICAL BACK SURGERY; COMMENT: lumbar 2003 and 2005 SINUS SURGERY PROCEDURE: [place] UNLISTED PROCEDURE ACCESSORY SINUSES; COMMENT: 2006 OTHER SURGICAL HISTORY PROCEDURE: IL TOTAL ABDOMINAL HYSTERECT W/WO RMVL TUBE OVARY; COMMENT: uterus 1975, one ovary 1982, other one 1985 OTHER SURGICAL HISTORY PROCEDURE: HISTORICAL UNSPECIFIED SURGERY; COMMENT: decompression brain surgery for trigem neuralgia BREAST SURGERY Left PROCEDURE: [place] UNLISTED PROCEDURE BREAST; COMMENT: ductal ectasia OTHER SURGICAL HISTORY 03/10/2016 PROCEDURE: IL ERCP W/SPHINCTEROTOMY/PAPILLOT ALEX; COMMENT: [facility]; pancreatic sphincterotomy and stent placement; complicated by retroperitoneal perforation. UPPER GASTROINTESTINAL ENDOSCOPY 12/07/2014 PROCEDURE: IL UPPER GI ENDOSCOPY PERFORMED; COMMENT: [facility]; Few small gastric erosions; no H. pylori; nl duodenal bx. COLONOSCOPY 12/07/2014 PROCEDURE: HISTORICAL COLONOSCOPY; COMMENT: [facility]; Hemorrhoids; normal biopsies OTHER SURGICAL HISTORY 04/09/2017 PROCEDURE: NUCLEAR EXAM OF STOMACH EMPTYING; COMMENT: Normal. COLONOSCOPY 07/26/2019 PROCEDURE: HISTORICAL COLONOSCOPY; COMMENT: collagenous colitis on biopsy UPPER GASTROINTESTINAL ENDOSCOPY 07/26/2019 PROCEDURE: UPPER GI ENDOSCOPY/EXAM; COMMENT: hiatal hernia ESOPHAGOGASTRODUODENOSCOPY 04/14/2022 PROCEDURE: IL EGD TRANSORAL BIOPSY SINGLE/MULTIPLE; COMMENT: esoph normal including biopsy Medical History Medical History Date Comments Allergic rhinitis DX:Allergic rh initis Hypogammaglobulinaemia, unspecified DX:Hypogammaglobulinaemia, unspecified; COMMENT: weekly infusions HTN (hypertension) DX:HTN (hyper tension) Tumor, thyroid DX:Tumor, thyroi d Trigeminal neuralgia DX:Trigemin al neuralgia; COMMENT: surgery 2011 Restless leg syndrome DX:Restles s leg syndrome [...] for your loved ones. For example, children's program coordinator or elderly care for an older adult? [...] Date Recorded What is your living situation? Unrecognized valu e 12/12/2024 Comments No Sex and Gender Information Value Date Recorded Sex Assigned at Female 01/19/2025 2:14 PM EDT Legal Sex Female 10:24 AM EST Gender Identity Female 01/19/2025 2:14 PM EDT Sexual Orientation Not on file Obstetrics History [...] Care Team (Late st Contact Info) Description 03/13/2025 11:30 AM EST Office Visit Orthopedic Surgery - [place] [address] [place] [phone] Rona Winn PA [address] [place] [phone] 04/20/2025 11:15 AM EST Office Visit Adult Medicine [address] [phone] Madi Rees MD [address] [place] [phone] Health Maintenance Due Date Last Done Comments [...] Cholesterol Screening (Lipid Panel) 02/24/2029 02/25/2024, 02/25/2024 Colorectal Cancer Screening: Colonoscopy 07/25/2029 07/26/2019 DTaP,Tdap,and Td Vaccines (4 - Td or Tdap) 01/10/2034 01/11/2024, 01/11/2023, 03/10/2012 Osteoporosis Screening (Bone Density Screening) 01/17/2035 01/17/2025, 07/04/2019 Hepatitis C Screening Completed 09/21/2012 Zoster Vaccines [...] Procedure Name Priority Date/Time Associated Diagnosis Comments IL INJECTION CARPAL TUNNEL THERAPEUTIC Routine 01/25/2025 11:30 AM EDT Carpal tunnel syndrome on left EMG 1 LIMB Routine 01/22/2025 2:28 PM EDT Carpal tunnel syndrome on left BD BONE DENSITY DXA AXIAL SKELETON Routine 01/17/2025 1:06 PM EDT Encounter for screening for osteoporosis BASIC METABOLIC PANEL Routine 10/26/2024 1:29 PM EDT Localized swelling of lower extremity Collagenous colitis Primary hypertension SCREENING MAMMOGRAPHY BI 2-VIEW BREAST INC CAD Routine 02/26/2024 12:29 PM EDT Encounter for screening mammogram for malignant neoplasm of breast LIPID PANEL Routine 02/25/2024 HM DEPRESSION SCREENING Routine 01/11/2023 HM FALLS RISK ASSESSMENT Routine 01/11/2023 COLONOSCOPY Routine 07/26/2019 HEPATITIS C SCREENING Routine 09/21/2012 from Last 3 Months or Most Recently Relevant to Health Maintenance Results * IL INJECTION CARPAL TUNNEL THERAPEUTIC (01/25/2025 11:30 AM EDT) Rona Hoffmann PA - 01/25/2025 11:30 AM EDT THOMAS Baez 01/25/2025 1:14 PM Hand / UE Inj/Asp: L carpal tunnel for carpal tunnel syndrome Details: 25 G needle, volar approach Medications: 0.5 mL lidocaine 1 %; 40 mg triamcinolone acetonide 40 mg/mL Informed Consent: Laterality: Left Relevant images/test results available and reviewed: yes Health status cleared: Yes Procedure/treatment, purpose, treatment alternatives, risks/potential complications and benefits explained: yes Risk/complications/benefits details: Risks of infection, thinning of the skin and temporary skin discoloration discussed. Discussed risks of temporary increased pain after injection and swelling and mild redness at injection site for couple days. Explained occasionally cortisone injection can cause facial flushing temporarily. Benefits pain management. For postop injection pain ice, Tylenol and/or NSAIDs if patient can take Patient questions answered: yes Patient agrees, verbalizes understanding, and wants to proceed: yes Consent given by: Patient Informed consent discussion completed by Physician/TATYANA with patient: Verbal Pre-procedure timeout performed: yes us Rona GUZMAN IN CLINIC/BEDSIDE ORDERABLES Final Result * EMG one limb (01/22/2025 2:28 PM EDT) Narrative Bouchra Langston MD - 01/22/2025 3:44 PM EDT Images from the original result were not included. [facility] [address] [place] [id number] Electromyograph Report Date of service: 01/22/25 Patient Name: Arabella NELSON Date of : 1950 Age: 74 y.o. Gender: female Procedure Order: EMG one limb Ordering Provider: Madi Rees MD Reason for Exam: There are no answered order specific questions. Diagnosis listed on Order: Carpal tunnel syndrome on left Please see scanned report for testing details and results. Procedure Note Bouchra Langston MD - 01/22/2025 Images from the original note were not included. [facility] [address] [place] [address] Electromyograph Report Date of service: 01/22/25 Patient Name: Arabella NELSON Date of : 1950 Age: 74 y.o. Gender: female Procedure Order: EMG one limb Ordering Provider: Madi Rees MD Reason for Exam: There are no answered order specific questions. Diagnosis listed on Order: Carpal tunnel syndrome on left Please see scanned report for testing details and results. EDT us Madi Rees MD NEUROLOGY ORDERABLES Final Result * BD Bone Density DXA Axial Skeleton (01/17/2025 1:06 PM EDT) Anatomical Region Laterality Modality Wrist, Hip, L-spine Bone Densito metry 01/18/2025 6:16 AM EDT Impressions 01/18/2025 6:18 AM EDT Impression: Osteoporosis by WHO criteria. The [facility] Department of Internal Medicine recommends using National Osteoporosis Foundation (NOF) guidelines in treatment decisions related to osteoporosis. NOF guidelines suggest considering treatment for postmenopausal women and men aged 50 or older presenting with the following: History of hip or vertebral fracture. T-score = -2.5 (DXA) at the femoral neck, total hip, or spine, after appropriate evaluation to exclude secondary causes. Low bone mass (T-score between -1.0 and -2.5 at the femoral neck or spine) AND a 10-year probability of a hip fracture = 3% OR a 10-year probability of a major osteoporosis-related fracture = 20% based on the [place]-adapted WHO algorithm Please note that all treatment decisions require clinical judgment and consideration of individual patient factors, including patient preferences, co-morbidities, previous drug use, risk factors not captured in the FRAX model (e.g., frailty, falls, vitamin D deficiency, increased bone turnover, interval significant decline in bone density) and possible under- or over-estimation of fracture risk by FRAX. Optional alternative screening schedule based on rosey Clark., [facility] May 21, 2011 for patients with osteopenia (based on hip BMD T-score) is as follows: * advanced osteopenia (T scores -2.00 to -2.49), BMD testing every year * moderate osteopenia (T scores -1.50 to -1.99), BMD testing every 5 years mild osteopenia or normal BMD (T scores -1.50 and higher), BMD testing every 15 years -------- FINAL REPORT -------- Dictated By: Gabriella López Dictated Date: 01/18/2025 06:16 ET Assigned Physician: Gabriella López Reviewed and Electronically Signed By: Gabriella López Signed Date: 01/18/2025 06:18 ET Workstation ID: [id number] Transcribed By: Self Edit Transcribed Date: 01/18/2025 06:16 ET Narrative 01/18/2025 6:18 AM EDT BONE DENSITY (DEXA) Right wrist. T-score is -2.8. (SD relative to 20-29 y/o adult) Z-score is -0.4. (SD relative to age matched peers) This is considered osteoporosis by WHO criteria. Left Hip T-score is -0.6. Z-score is 1.3. This is considered normal by WHO criteria. Comparison exam(s): Interval decrease of bone mineral density in the right wrist. Confidence level is +/-95%. Procedure Note Gabriella López MD - 01/18/2025 BONE DENSITY (DEXA) Right wrist. T-score is -2.8. (SD relative to 20-29 y/o adult) Z-score is -0.4. (SD relative to age matched peers) This is considered osteoporosis by WHO criteria. Left Hip T-score is -0.6. Z-score is 1.3. This is considered normal by WHO criteria. Comparison exam(s): Interval decrease of bone mineral density in the rightwrist. Confidence level is +/-95%. IMPRESSION: Impression: Osteoporosis by WHO criteria. The [facility] Department of Internal Medicine recommendsusing National Osteoporosis Foundation (NOF) guidelines in treatmentdecisions related to osteoporosis. NOF guidelines suggest consideringtreatment for postmenopausal women and men aged 50 or older presentingwith the following: History of hip or vertebral fracture. T-score = -2.5 (DXA) at the femoral neck, total hip, or spine, afterappropriate evaluation to exclude secondary causes. Low bone mass (T-score between -1.0 and -2.5 at the femoral neck or spine)AND a 10-year probability of a hip fracture = 3% OR a 10-year probabilityof a major osteoporosis-related fracture = 20% based on the [place]-adapted WHOalgorithm Please note that all treatment decisions require clinical judgment andconsideration of individual patient factors, including patientpreferences, co-morbidities, previous drug use, risk factors not capturedin the FRAX model (e.g., frailty, falls, vitamin D deficiency, increasedbone turnover, interval significant decline in bone density) and possibleunder- or over-estimation of fracture risk by FRAX. Optional alternative screening schedule based on tierra Clark al., NEJMJanuary 2011 for patients with osteopenia (based on hip BMD T-score)is as follows: * advanced osteopenia (T scores -2.00 to -2.49), BMD testing every year * moderate osteopenia (T scores -1.50 to -1.99), BMD testing every 5years mild osteopenia or normal BMD (T scores -1.50 and higher), BMD testingevery 15 years -------- FINAL REPORT -------- Dictated By: Gabriella López Dictated Date: 01/18/2025 06:16 ET Assigned Physician: Gabriella López Reviewed and Electronically Signed By: Gabriella López Signed Date: 01/18/2025 06:18 ET Workstation ID: [id number] Transcribed By: Self Edit Transcribed Date: 01/18/2025 06:16 ET Madi Rees MD IM DXA PROCEDURES Final Re sult * (ABNORMAL) Basic metabolic panel (10/26/2024 1:29 PM EDT) Sodium 138 133 - 145 mmol/L LAB CHEMISTRY METHOD 10/26/2024 5:05 PM [facility] Potassium 4.9 3.5 - 5.5 mmol/L LAB CHEMISTRY METHOD 10/26/2024 5:05 PM [facility] Chloride 99 96 - 110 mmol/L LAB CHEMISTRY METHOD 10/26/2024 5:05 PM [facility] CO2 32 21 - 32 mmol/L LAB CHEMISTRY METHOD 10/26/2024 5:05 PM [facility] Anion Gap 7 3 - 11 LAB CHEMISTRY METHOD 10/26/2024 5:05 PM [facility] Glucose 121(H) 70 - 100 mg/dL LAB CHEMISTRY METHOD 10/26/2024 5:05 PM EDT [facility] BUN 19 5 - 25 mg/dL LAB CHEMISTRY METHOD 10/26/2024 5:05 PM EDT [facility] Creatinine 1.06 0.50 - 1.10 mg/dL LAB CHEMISTRY METHOD 10/26/2024 5:05 PM EDT [facility] eGFR 56(L) >=60 mL/min/1. 73m2 LAB CHEMISTRY METHOD 10/26/2024 5:05 PM EDT [facility] Comment:Calculation based on the Chronic Kidney Disease Epidemiology Collaboration (CKD-EPI) equation refit without adjustment for race. BUN/Creatinine Ratio 17.9 LAB CHEMISTRY METHOD 10/26/2024 5:05 PM EDT [facility] Calcium 9.7 8.5 - 10.5 mg/dL LAB CHEMISTRY METHOD 10/26/2024 5:05 PM EDT [facility] Blood Venous blood specimen / Unknown Venipuncture / Unknown 10/26/2024 1:29 PM EDT 10/26/2024 1:29 PM EDT us Madi Rees MD LAB BLOOD ORDERABLES Final Result [facility] [address] [place] [address], * SCREENING MAMMOGRAPHY BI 2-VIEW BREAST INC [...] evidence of malignancy. BI-RADS 1 - negative [address] [address] Procedure Note Dana Weeks MD - 03/04/2024 [...] evidence of malignancy. BI-RADS 1 - negative [address] [address] Result [facility] Madi Rees MD IMG XR PROCEDURES Final Res ult * Lipid panel (02/25/2024) [facility] LDL/HDL Ratio 2 0 - 4 Triglycerides 125 0 - 150 mg/dL Cholesterol 180 0 - 200 mg/dL HDL 100 >=40 mg/dL LDL Cholesterol 55 0 - 100 mg/dL Blood Venous blood specimen / Unknown Result [facility] Provider LAB BLOOD ORDERABLES Isabelle l Result * Falls Risk Assessment (01/11/2023) [facility] Falls Risk Assessment Abstracted Result [facility] Provider HEALTH MAINTENANCE Final Result * Depression Screening (01/11/2023) [facility] Depression Screening Abstracted Result [facility] Provider HEALTH MAINTENANCE Final Result * Colonoscopy (07/26/2019) [facility] Colonoscopy No interpretation , abstracted Anatomical Region Laterality Modality Other us Historical Provider HEALTH MAINTENANCE Final Result * Hepatitis C Screening (09/21/2012) Hepatitis C Screening Abstracted Historical Provider HEALTH MAINTENANCE Final Result from Last 3 Months or Most Recently Relevant to Health Maintenance Insurance MEDICARE [facility] Care Teams Hospital Account Liaison Relationship Specialty Start Date End Date Madi Rees MD [address] [place] [address] PCP - General Internal Medicine 10/06/21
--- OUTSIDE RECORDS SUMMARY | 2025-02-22 17:50 | XMS_ITS | Data Portability ---
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 Her question is whether she should have that surgery and whether it will help her most concerning symptoms: Her significant right upper extremity weakness, the associated atrophy, and her new right upper extremity pain from elbow distally. DATA REVIEW IMAGING MRI cervical spine without contrast May 23, 2021, per dictation neuroradiology Dr. Bar Mary: Cervical cord is normal. Laminectomy defects C3-C7 and pedicle screws C2, T1 and T2. Posterior element screws bilaterally at C3, on the right at C4 and bilaterally at C6. T2 bright signal in C3-4 disc space of uncertain significance. C2-3 mild to moderate left foraminal narrowing. C3-4 probable severe left foraminal stenosis. No other changes more than mild. No central canal stenosis in general. NEUROPHYSIOLOGY EMG & nerve conduction studies May 08, 2021, Dr. Greg Dupree, [facility]: Right upper extremity nerve conduction studies are normal. Right upper extremity needle EMG of anterior myotomes: Chronic reinnervation diffusely yellow, more for C5-6 biceps and deltoid; and C8-T1 abductor digit he minimi and abductor pollicis brevis; less for triceps and extensor digitorum. The most recent cervical spine I have is May 2021 which shows no relevant degenerative change. She reports that there has been a follow-up MRI cervical spine that she has been told does show relevant degenerative change. The pain that is a central concern is in the C8 dermatome. If there is central canal or uncovertebral impingement on the right C8 nerve root at C6-7, then there is a reasonable chance that this pain will go away. She would have to compare this chance, not 100%, with the possibilities of side effects described by the surgeon s he remembers these. She understands. Her weakness in all likelihood will not be helped by surgery. I do not find weakness on exam but there might be subtle weakness that I do not appreciate. Her weakness is unchanging since her EMG May 2021 and no acute denervation to suggest recent or ongoing injury was found at that neurophysiological study. Chronic weakness is not helped by surgery. New weakness might be helped. Likewise, atrophy, a chronic feature, will also not be helped. I do not see any focal atrophy in the right hand muscles. She talks about atrophy at the wrist. The atrophy is not a matter of deep concern to her in any case, she says. She is thankful for my explanation. PLAN Nina Velez Hari May 11, 2021 Follow-up as needed. [email or web address] Not available 05/11/2022 15:07:12 Plan of Treatment Reminders Order Date Submit Date Provider Last Modified By Organization Details Last Modified Time Details Appointments None record ed. Lab None record ed. Referral None record ed. Procedures None record ed. Surgeries None record ed. Imaging None record ed. Medication Orders None record ed. Patient TargetsNo targets recorded. Patient Instructions Encounter Date Encounter Id Patient Instructions Last Modified By Organization Details Last Modified Time 05/11/2022 [id number] Discussion acros s issues of diagnoses and management and same day associated chart review and management greater than 50% greater than 90 minutes [email or web address] Not available 05/11/2022 15:07:35 Reason for Referral None Reported. Results Created Date Observation Date Name Description Value Unit Range Abnormal Flag Note LastModifiedBy Organization Detail LastModifiedTime 05/11/1907/23/2020 MRI, brain + brain stem, w/wo contr ast No observ ation record ed. [email or web address] Not Available 01/2023 12:49:21 05/11/19 23 07/21/2021 MRI, lumba r spine , w/o contr ast No observ ation record ed. [email or web address] Not Available 01/2023 12:50:25 05/11/19 23 05/23/2021 MRI, cervi maude spine , w/o contr ast No observ ation record ed. [email or web address] Not Available 01/2023 12:52:58 05/11/19 elect romyo gram + nerve condu ction study No observ ation record ed. [email or web address] Not Available 01/2023 12:56:22 05/11/19 23 04/11/2020 elect romyo gram + nerve condu ction study No observ ation record ed. [email or web address] Not Available 2022 16:03:58 Result Notes None recorded. Procedures Surgical History Date Name Laterality Status Provider Name and Address Organization Details Recorded Time 05/11/2022 DATA REVIEW completed Rancho Herrera MD [address] [place] [address], [id number] 05/11/2022 14:20:56 Imaging Results None recorded. Procedure Notes None recorded. Medical Equipment None Reported. Allergies Allergen ID Allergen Name Allergen Category Reaction Reaction Severity Criticality Documentation Date Start Date Code Code System Note Provider Name and Address Organization Details Recorded Time 2148 morphine medicatio n Not available Not available Not available 05/11/2022 7052 RxNorm Neeru Worthingt on [facility] 3 13:04:28 2150 Augmentin medicatio n Not available Not available Not available 05/11/2022 66634 2 RxNorm Neeru Worthingt on [facility] 3 13:05:59 2151 Product containin g 3-hydroxy -3-methyl glutaryl- coenzyme A reductase inhibitor (product) medicatio n Not available Not available Not available 05/11/2022 55835 009 SNOMED Neeru [employer] on [facility] 3 13:06:06 Medications Name Sig Start Date Stop Date Status Note LastModified by Organization Details LastModified Time losartan 50 mg tablet TAKE 1 TABLET BY MOUTH EVERY DAY active Not Available Not Available No t Available furosemide 40 mg tablet TAKE 1 TABLET BY MOUTH TWICE A DAY active Not Available Not Available No t Available fluconazole 100 mg tablet TAKE 1 TABLET BY MOUTH DAILY. FOR 1 TO 4 WEEKS. active Not Available Not Available No t Available carvedilol 12.5 mg tablet TAKE 1 TABLET BY MOUTH TWICE A DAY WITH MEALS active Not Available Not Available No t Available pravastatin 40 mg tablet TAKE 1 TABLET BY MOUTH EVERY DAY active Not Available Not Available No t Available ondansetron HCl 4 mg tablet TAKE 1 TABLET BY MOUTH EVERY 6 HOURS NEEDED FOR NAUSEA active Not Available Not Available No t Available diphenoxylat e-atropine 2.5 mg-0.025 mg tablet TAKE 1 TABLET BY MOUTH 3 TIMES A DAY active Not Available Not Available Not Available amlodipine 5 mg tablet TAKE 1 TABLET BY MOUTH EVERY DAY active Not Available Not Available No t Available tramadol 50 mg tablet TAKE ONE TO TWO TABLETS BY MOUTH EVERY 8 HOURS active Not Available Not Available No t Available dicyclomine 20 mg tablet TAKE 1 TABLET BY MOUTH 3 TIMES DAILY NEEDED (CRAMPS). active Not Available Not Available No t Available amitriptylin e 10 mg tablet TAKE 4 TABLETS BY MOUTH AT BEDTIME active Not Available Not Available No t Available diazepam 2 mg tablet TAKE 1 TABLET BY MOUTH EVERY 8 HOURS NEEDED FOR 14 DAYS active Not Available Not Available No t Available baclofen 10 mg tablet TAKE 1/2 TABLET BY MOUTH 3 TIMES DAILY NEEDED active Not Available Not Available No t Available pantoprazole 40 mg tablet,delay ed release TAKE 1 TABLET BY MOUTH EVERY DAY active Not Available Not Available No t Available levothyroxin e 125 mcg tablet TAKE 1 TABLET BY MOUTH EVERY DAY active Not Available Not Available No t Available gabapentin 300 mg capsule TAKE 1 CAPSULE BY MOUTH 3 TIMES A DAY active Not Available Not Available Not Available omeprazole 20 mg capsule,simon yed release TAKE 1 CAPSULE BY MOUTH EVERY DAY active Not Available Not Available No t Available diclofenac sodium 75 mg tablet,delay ed release TAKE 1 TABLET BY MOUTH TWICE A DAY active Not Available Not Available No t Available hydrocortiso ne 10 mg tablet TAKE 1 TABLET BY MOUTH EVERY DAY active Not Available Not Available No t Available cefuroxime axetil 500 mg tablet TAKE 1 TABLET BY MOUTH TWICE A DAY FOR 7 DAYS active Not Available Not Available No t Available estradiol 0.01% (0.1 mg/gram) vaginal cream APPLY 1/2 GRAM ON MONDAYS, WEDNESDAYS AND FRIDAYS active Not Available Not Available Not Available losartan 100 mg tablet TAKE 1 TABLET BY MOUTH EVERY DAY active Not Available Not Available No t Available colestipol 1 gram tablet TAKE 1 TABLET BY MOUTH EVERY DAY BEFORE BREAKFAST active Not Available Not Available No t Available dicyclomine 10 mg capsule TAKE 1 CAPSULE BY MOUTH DAILY NEEDED (CRAMPS). active Not Available Not Available No t Available diazepam 5 mg tablet 1 TABLET 60 MINUTES PRIOR TO PROCEDURE, MAY REPEAT 30 MINUTES PRIOR TO PROCEDURE FOR 1 DAY active Not Available Not Available No t Available oxycodone 5 mg tablet TAKE 1 TABLET EVERY 4 TO 6 HOURS NEEDED FOR PAIN active Not Available Not Available No t Available metoprolol tartrate 25 mg tablet TAKE 1 TABLET BY MOUTH TWICE A DAY active Not Available Not Available No t Available Flovent HFA 44 mcg/actuatio n aerosol inhaler TAKE 1 PUFF BY MOUTH TWICE A DAY active Not Available Not Available Not Available lamotrigine active Not Available Not A vailable Not Available sucralfate active Not Available Not Av ailable Not Available oxycodone 10 mg tablet TAKE 1 TO 2 TABLETS BY MOUTH EVERY 4-6 HOURS NEEDED FOR PAIN active Not Available Not Available No t Available Eliquis active Not Available Not Avail able Not Available Vitals Date Recorded Body height Body mass index (BMI) Body weight Respiratory rate Provider Name and Address Organization Details Last Updated DateTime 05/11/2022 165.1 cm 33.3 kg/m2 76004.47 g 12 /min [facility] 05/11/2022 13:04:09 Social History Question Answer Notes LastModified by Organizat ion Details LastModified Time Tobacco Smoking Status Former Smoker [facility] 05/11/2022 13:15:09 What Is Your Level Of Caffeine Consumption? Moderate [facility] Information not available 05/11/2022 What Is The Highest Grade Or Level Of School You Have Completed Or The Highest Degree You Have Received? [id number] [facility] Information not available 05/11/2022 Which Of Your Hands Is Dominant? Right [facility] Information not available 05/11/2022 Sex: Unknown Functional Status Question Answer Note LastModified by Organization D etails LastModified Time What is your level of alcohol consumption? None [email or web address] Information not available 05/11/2022 Mental Status None recorded. Family History Relationship Description Onset Age of this Age Resolved Age Notes LastModified by Organization Details LastModified Time Mother Dementia [email or web address] Not avail able 05/11/2022 13:10:13 Mother Hypertensive disorder [email or web address] Not available 01/2023 13:14:12 Father Type 2 diabetes mellitus [email or web address] Not available 01/2023 13:10:33 Father Hypertensive disorder [email or web address] Not available 01/2023 13:14:12 Father Neuropathy [email or web address] Not naima ilable 05/11/2022 13:14:24 Father Thyroiditis [email or web address] Not av ailable 05/11/2022 13:14:38 Medical History Condition Response Claustrophobia N Hospitalizations N Head Trauma/Injury N High Blood Pressure or Hypertension Y Thyroid Problems Y Lung Disease N COPD or emphysema N Brain Tumors N Depression N Encephalitis N Vitamin B12 deficiency N PTSD N Spine Problems N Heart Attack ([place]) N Obstructive Sleep Apnea N Alcoholism N Diabetes N Autoimmune disease N Bleeding Disorder N Arthritis N Tuberculosis N Developmental Problems N Cerebral Palsy N Neck Problems N Cancer N Back Problems N Stroke N Asthma N Heartburn, acid reflux, GERD N Vitamin D Deficiency Y Epilepsy/Seizures N Bipolar Disorder N Sleep Disorder N Hepatitis N Aneurysm N Liver Disease N Heart Disease N Headaches Y Fibromyalgia N Osteoporosis N High Cholesterol or Hyperlipidemia Y Kidney Disease N Gynecological HistoryNo gynecological history recorded. Obstetrics History GPAL:G 0 P 0 0 0 0 Past Encounters Encounter ID Performer Location Encounter Start Date Encounter Closed Date Diagnosis/Indication Diagnosis SNOMED-CT Code Diagnosis ICD10 Code Diagnosis IMO Codes Diagnosis Note [id number] Rancho Herrera MD [facility] [address] [place] [address] [place] [address] 05/11/2022 12:36:46 05/12/2022 08:30:39 Cervical radiculopathy 33127874 M54.12 Health Concerns Section Related Observation LastModified by Organization Detai ls LastModified Time None Recorded Concern Status LastModified by Organization Details LastModified Time None Recorded Advance Directives Directive None Recorded Payers Insurance Date Sequence Insurance Name Policy Number Policy Herbert Covered Member ID Herbert Member ID Guarantor Name 05/28/2022 1 [place]IC[place]: [employer] Nina Noriega [id number] Nina Noriega 05/28/2022 2 [facility] [id number] Nina Noriega [id number] Nina Noriega Notes Date Note Type Note Provider Name and Address Organization Details Recorded Time 05/11/2022 text/html She presents for initial neurology consultation for assessment and management of post 2019 C2-T1 cervical spine surgery worsening of previously improved right upper extremity weakness; emergence of right forearm and hand pain and hand locking up; partial recurrence of improved neck pain; and mildly worsened right finger numbness that was new after 2019 surgery. 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 She is right-handed. She is unaccompanied.In 2019, she had severe bilateral neck pain so that she was never able to get comfortable and weakness in the right upper extremity. After 2019 C2-T1 cervical spine surgery, the neck pain was completely gone and her right upper extremity weakness was 80% better. She had chronic left-sided face pain that had been diagnosed as trigeminal neuralgia but which did not resolve with surgery specifically for that trigeminal neuralgia in 2011. That face pain resolved with with the 2019 cervical spine surgery. She had one new symptom after the surgery: Numbness in right-sided fingers 4-5. She remembers no other symptoms that she relates to her cervical spine either before or after that 2019 surgery.In recent times, she has had new pain in her right upper extremity from the elbow down. Her hand has also been newly locking up. Weakness that had resolved 80% after 2019 surgery has returned and is now a lot worse than even before the 2019 surgery, she estimates 75% worse. She cannot rosa. She cannot open a bottle of water. She also has concerning atrophy in her right upper extremity. The neck pain has returned although milder than before the 2000 surgery and she can sometimes get comfortable. The left side face pain has started again but it is not as bad as it was before 2019 surgery.Because of the new right upper extremity pain and the significantly worsened right upper extremity weakness, she has consulted with a surgeon and C6-7 cervical spine surgery is planned July 2022 to clean out the arthritis in that region. Her question is whether she should have that surgery and whether it will help her most concerning symptoms: Rancho Herrera MD [address] [place] [address] [place], [phone], [facility] 05/11/2022 16:23:34 OBGyn Episode No OBEpisode recorded.
== END 2025-02-22 15:25 | disposition home or self-care (01) ==
LOC: HO.HGI 13:57
PROVIDERS: PCP Internal Medicine; Visit Provider Nurse Practitioner Family
DX: R19.5 Other fecal abnormalities (principal); B37.81 Candidal esophagitis; D64.9 Anemia, unspecified
CPT/HCPCS: 99204

== ENCOUNTER → 2025-02-22 13:56 | Outpatient (BNVA) | payer MEDICARE, SELFPAY | PROVIDERS: PCP Internal Medicine; Visit Provider Nurse Practitioner Family | DX: R19.5 Other fecal abnormalities (principal); B37.81 Candidal esophagitis; D64.9 Anemia, unspecified; I10 Essential (primary) hypertension; Z87.891 Personal history of nicotine dependence; Z79.01 Long term (current) use of anticoagulants; E78.5 Hyperlipidemia, unspecified | CPT/HCPCS: 99202 ==

== ENCOUNTER 2025-03-08 13:10 | Outpatient (REF) | payer MEDICARE, SELFPAY ==
--- NOTE | ~2025-03-08 | US_ITS ---
EXAMINATION: US THYROID HISTORY: E04.2 - Nontoxic multinodular goiter TECHNIQUE: Real-time grayscale ultrasound imaging was performed and images were reviewed. COMPARISON: There are no prior studies available for comparison. FINDINGS: SIZE: The right thyroid lobe measures 4.1 x 1.4 x 1.0 cm. The left thyroid lobe is surgically absent. The isthmus measures 2 mm. FLOW: Flow to the gland is normal. ECHOGENICITY: The echotexture of the gland is homogeneous. NODULES: No nodules are identified. US/US thyroid IMPRESSION: Status post left thyroidectomy. Otherwise unremarkable thyroid ultrasound. ACR TI-RADS Guidelines TR1 (0 points): Benign. No follow-up or biopsy required TR2 (2 points): Not Suspicious. No biopsy or follow up indicated TR3 (3 points): Mildly Suspicious. FNA if >= 2.5 cm, Follow if >= 1.5 cm TR4 (4-6 points): Moderately Suspicious. FNA if >= 1.5 cm, Follow if >= 1.0 cm TR5 (>=7 points): Highly Suspicious. FNA if >= 1.0 cm, Follow if >= 0.5 cm Electronically signed by: Getachew Vincent MD 03/08/2025 01:27 PM BARBIE
--- OUTSIDE RECORDS SUMMARY | 2025-03-08 16:00 | XMS_ITS | Clinical Summary ---
Author Organization [facility] [address] [facility] Address [address] [place] [address] Phone Care Team Providers Care Electronic Field Service Engineer Name Role Phone Madi Rees MD Primary Care Provider Allergies Active Allergy Reactions Criticality Noted Date Comments Amoxicillin-Pot Clavulanate Itching 01/01/20 12 Morphine Sulfate Itching 01/01/2012 Rosuvastatin Calcium 06/17/2017 Crestor Medications amitriptyline (ELAVIL) 10 mg tablet Take 1 tablet (10 mg total) by mouth at bedtime. 01/01/20 23 Active multivitamin with minerals (Multiple Vitamin-Minera ls) tablet Take by mouth daily. Active L. acidophilus/Bi fid. animalis (DAILY PROBIOTIC ORAL) Take by mouth. Activ e cholecalcifero l (VITAMIN D-3) 50 mcg (2,000 unit) capsule Take by mouth. Activ e ondansetron (ZOFRAN) 4 mg tablet Take 1 tablet (4 mg total) by mouth every 6 (six) hours if needed for nausea. 20 tablet 2 03/31/20 24 Active vit C/vit E ac/selenium/gi nkgo (MEMORY COMPLEX ORAL) Take by mouth 1 [...] spasms). 90 capsule 2 10/27/19 25 Active hydrocortisone (CORTEF) 10 mg tablet TAKE 1 TABLET BY MOUTH EVERY DAY 90 tablet 1 12/19/19 25 Active oxyCODONE (ROXICODONE) 5 mg immediate release tablet Take 1 tablet (5 mg total) by mouth if needed. 11/30/19 25 Active hydrocortisone (CORTEF) 5 mg tablet Take 1 tablet [...] split. 90 each 1 12/19/19 25 Active diphenoxylate- atropine (LOMOTIL) 2.5-0.025 mg per tablet Take 1 [...] for diarrhea. 360 capsule 01/26/20 25 Active albuterol HFA (PROAIR HFA ; [...] directed 30 mL 1 02/08/20 25 Active estradioL (ESTRACE) 0.01 % (0.1 mg/gram) vaginal cream APPLY 1/2 GRAM ON MONDAYS, WEDNESDAYS AND FRIDAYS 42.5 g 1 02/14/20 25 Active hydrALAZINE (APRESOLINE) 10 mg tablet TAKE 1 TABLET TWICE A DAY 180 tablet 1 03/06/20 25 Active colestipoL (COLESTID) 1 gram tablet Take 1 tablet (1 g total) by mouth 4 (four) times a day. 120 tablet 03/06/20 25 Active estradioL (ESTRACE) 0.01 % (0.1 mg/gram) vaginal cream APPLY 1/2 GRAM ON MONDAYS, WEDNESDAYS AND FRIDAYS 42.5 g 1 10/20/19 25 025 Discontinued colestipoL (COLESTID) 1 gram tablet Take 1 tablet (1 g total) by mouth 4 (four) times a day. 120 tablet 02/06/20 25 025 Discontinued hydrALAZINE (APRESOLINE) 10 mg tablet Take 1 tablet (10 mg total) by mouth 2 (two) times a day. 60 each 02/08/20 25 025 Discontinued Active Problems Problem Noted Date Diagnosed Date Gastroesophageal reflux disease without esophagi tis 07/18/2024 Allergic rhinitis 03/10/2024 Hypogammaglobulinemia (CMS/[facility] V24) 03/10/2024 Trigeminal neuralgia 03/10/2024 Overview (03/10/2024): Had surgery to relieve 2012 - not effective Restless leg syndrome 03/10/2024 Hypothyroidism due to acquired atrophy of thyroi d 08/23/2023 Mild intermittent asthma without complication Hypertriglyceridemia 08/23/2023 SI joint arthritis ([facility] V24) 08/23/2023 Pelvic pain 04/02/2022 Overview [...] t3; Future Microscopic colitis 08/10/2019 Esophageal candidiasis ([facility] V24, [facility] V28 ) 08/10/2019 Asthma 07/20/2019 Chronic headache disorder 06/02/2017 Overview (03/10/2024): Onset approx 2015. Postprocedural retroperitoneal abscess 7 Overview (03/10/2024): Retroperitoneal perforation, ERCP, 03/10/2016 Elevated alkaline phosphatase level 04/07/2016 Overview (03/10/2024): Dilated pancreatic duct, perforation at time of ERCP and sphincterotomy Mixed hyperlipidemia 02/23/2014 Secondary adrenal insufficiency ([facility] V24) Assessment & Plan (12/18/2024 12:38 PM EDT): Orders: CBC and differential; Future Basic metabolic panel; Future Thyroid stimulating hormone with reflex to free t4 and free t3; Future Jugular vein thrombosis, left 01/18/2014 Overview (03/10/2024): No flow left internal jugular vein, left sigmoid and transverse sinuses. Lifelong anticoagulation recommended by Dr. Hills Pituitary adenoma ([facility] V24, [facility] V28) Overview (03/10/2024): 5 mm on MRI of 12/29/2013 Chronic left-sided low back pain with left-sided sciatica 03/21/2013 Overview (03/10/2024): Per pt: [facility], Dr. 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 Jose C Tariq [phone] Cervicalgia 09/21/2012 Chronic pain 03/10/2012 Hypothyroid 03/10/2012 [...] 11:30 AM EDT Consult Orthopedic Surgery - [place] [address] [facility] [address] [place] [phone] Rona Winn PA Arthritis of left hand (Primary Dx); Carpal tunnel syndrome on left 01/22/2025 2:09 PM EDT - 01/22/2025 11:59 PM EDT Hospital Encounter [facility] [address] [place] [address] Carpal tunnel syndrome on left Discharge Disposition: Home or Self Care 01/17/2025 12:27 PM EDT - 01/17/2025 11:59 PM EDT Hospital Encounter [facility] [address] [phone] Encounter for screening for osteoporosis Discharge Disposition: Home or Self Care 12/22/2024 Telephone Adult Medicine [address] [phone] Madi Rees MD 12/18/2024 11:30 AM EDT Office Visit Adult Medicine [address] [phone] Madi Rees MD Primary hypertension (Primary Dx); [...] lumbar 2003 and 2005 SINUS SURGERY PROCEDURE: AK UNLISTED PROCEDURE ACCESSORY SINUSES; COMMENT: 2006 OTHER SURGICAL HISTORY PROCEDURE: AK TOTAL ABDOMINAL HYSTERECT W/WO RMVL TUBE OVARY; COMMENT: uterus 1975, one ovary 1982, other one 1985 OTHER SURGICAL HISTORY PROCEDURE: HISTORICAL UNSPECIFIED SURGERY; COMMENT: decompression brain surgery for trigem neuralgia BREAST SURGERY Left PROCEDURE: AK UNLISTED PROCEDURE BREAST; COMMENT: ductal ectasia OTHER SURGICAL HISTORY 03/10/2016 PROCEDURE: AK ERCP W/SPHINCTEROTOMY/PAPILLOT ALEX; COMMENT: [facility]; pancreatic sphincterotomy and stent placement; complicated by retroperitoneal perforation. UPPER GASTROINTESTINAL ENDOSCOPY 12/07/2014 PROCEDURE: AK UPPER GI ENDOSCOPY PERFORMED; COMMENT: [facility]; Few small gastric erosions; no H. pylori; nl duodenal bx. COLONOSCOPY 12/07/2014 PROCEDURE: HISTORICAL COLONOSCOPY; COMMENT: [facility]; Hemorrhoids; normal biopsies OTHER SURGICAL HISTORY 04/09/2017 PROCEDURE: NUCLEAR EXAM OF STOMACH EMPTYING; COMMENT: Normal. COLONOSCOPY 07/26/2019 PROCEDURE: HISTORICAL COLONOSCOPY; COMMENT: collagenous colitis on biopsy UPPER GASTROINTESTINAL ENDOSCOPY 07/26/2019 PROCEDURE: UPPER GI ENDOSCOPY/EXAM; COMMENT: hiatal hernia ESOPHAGOGASTRODUODENOSCOPY 04/14/2022 PROCEDURE: AK EGD TRANSORAL BIOPSY SINGLE/MULTIPLE; COMMENT: esoph normal [...] care for your loved ones. For example, child care supervisor or elderly care for an older adult? [...] AM EST Office Visit Orthopedic Surgery - [place] [address] [phone] Rona Winn PA [address] [phone] 04/20/2025 11:15 AM EST Office Visit Adult Medicine [address] [phone] Madi Rees MD [address] [place] [address] Health Maintenance Due Date Last Done Comments [...] Procedure Name Priority Date/Time Associated Diagnosis Comments AK INJECTION CARPAL TUNNEL THERAPEUTIC Routine 01/25/2025 11:30 [...] Recently Relevant to Health Maintenance Results * AK INJECTION CARPAL TUNNEL THERAPEUTIC (01/25/2025 11:30 AM EDT) Narrative Rona Winn PA - 01/25/2025 11:30 AM EDT THOMAS [...] original result were not included. [facility] [address] [place] [address] Electromyograph Report Date of service: 01/22/25 Patient [...] original note were not included. [facility] [address] [place] [id number] Electromyograph Report Date of service: 01/22/25 Patient Name: Arabella NELSON Date of : 1950 Age: 74 y.o. Gender: female Procedure Order: EMG one limb Ordering Provider: Madi Rees MD Reason for Exam: There are no answered order specific questions. Diagnosis listed on Order: Carpal tunnel syndrome on left Please see scanned report for testing details and results. EDT Madi Rees MD NEUROLOGY ORDERABLES Final Result * BD Bone Density DXA Axial Skeleton (01/17/2025 1:06 PM EDT) Anatomical Region Laterality Modality Wrist, Hip, L-spine Bone Densito metry 01/18/2025 6:16 AM EDT Impressions 01/18/2025 6:18 AM EDT Impression: Osteoporosis by WHO criteria. [facility] Department of Internal Medicine recommends using [...] alternative screening schedule based on rosey Clark., [facility] May 21, 2011 for patients with osteopenia [...] Signed Date: 01/18/2025 06:18 ET Workstation ID: [id number] Transcribed By: Self Edit Transcribed Date: 01/18/2025 [...] IMPRESSION: Impression: Osteoporosis by WHO criteria. [facility] Department of Internal Medicine recommendsusing National [...] alternative screening schedule based on rosey Clark., [facility] for patients with osteopenia (based on [...] Signed Date: 01/18/2025 06:18 ET Workstation ID: [id number] Transcribed By: Self Edit Transcribed Date: 01/18/2025 06:16 ET us Madi Rees MD [facility] DXA PROCEDURES Final Re sult * (ABNORMAL) Basic metabolic panel (10/26/2024 1:29 PM EDT) [facility] Signature Sodium 138 133 - 145 mmol/L LAB CHEMISTRY METHOD 10/26/2024 5:05 PM EDT [facility] Potassium 4.9 3.5 - 5.5 mmol/L LAB CHEMISTRY METHOD 10/26/2024 5:05 PM [facility] Chloride 99 96 - 110 mmol/L LAB CHEMISTRY METHOD 10/26/2024 5:05 PM [facility] CO2 32 21 - 32 mmol/L LAB CHEMISTRY METHOD 10/26/2024 5:05 PM [facility] Anion Gap 7 3 - 11 LAB CHEMISTRY METHOD 10/26/2024 5:05 PM [facility] Glucose 121(H) 70 - 100 mg/dL LAB CHEMISTRY METHOD 10/26/2024 5:05 PM [facility] BUN 19 5 - 25 mg/dL LAB CHEMISTRY METHOD 10/26/2024 5:05 PM [facility] Creatinine 1.06 0.50 - 1.10 mg/dL LAB CHEMISTRY METHOD 10/26/2024 5:05 PM [facility] eGFR 56(L) >=60 mL/min/1. 73m2 LAB CHEMISTRY METHOD 10/26/2024 5:05 PM [facility] Comment:Calculation based on the Chronic Kidney Disease Epidemiology Collaboration (CKD-EPI) equation refit without adjustment for race. BUN/Creatinine Ratio 17.9 LAB CHEMISTRY METHOD 10/26/2024 5:05 PM [facility] Calcium 9.7 8.5 - 10.5 mg/dL LAB CHEMISTRY METHOD 10/26/2024 5:05 PM [facility] Blood Venous blood specimen / Unknown Venipuncture / Unknown 10/26/2024 1:29 PM EDT 10/26/2024 1:29 PM EDT Madi Rees MD LAB BLOOD ORDERABLES Final Result [facility] [address] [place] [address], * SCREENING MAMMOGRAPHY BI 2-VIEW BREAST INC [...] evidence of malignancy. BI-RADS 1 - negative [address] [address] Procedure Note Dana Weeks MD - 03/04/2024 [...] evidence of malignancy. BI-RADS 1 - negative [address] [address] us Madi Rees MD IMG XR PROCEDURES Final Res ult * Lipid panel (02/25/2024) LDL/HDL Ratio 2 0 - 4 Triglycerides 125 0 - 150 mg/dL Cholesterol 180 0 - 200 mg/dL HDL 100 >=40 mg/dL LDL Cholesterol 55 0 - 100 mg/dL Blood Venous blood specimen / Unknown Historical Provider LAB BLOOD ORDERABLES Isabelle l Result * Falls Risk Assessment (01/11/2023) [facility] Falls Risk Assessment Abstracted Historical Provider HEALTH MAINTENANCE Final Result * Depression Screening (01/11/2023) Pathologist [facility] Depression Screening Abstracted [facility] Provider HEALTH MAINTENANCE Final Result * Colonoscopy (07/26/2019) [facility] Colonoscopy No interpretation , abstracted Anatomical Region Laterality Modality Other Historical Provider HEALTH MAINTENANCE Final Result * Hepatitis C Screening (09/21/2012) [facility] Hepatitis C Screening Abstracted [facility] Provider HEALTH MAINTENANCE Final Result from Last 3 Months or Most Recently Relevant to Health Maintenance Insurance [facility]ICARE [facility] Care Teams Electronic Field Service Engineer Relationship Specialty Start Date End Date Madi Rees MD [address] [place] [address] PCP - General Internal Medicine 10/06/21
--- OUTSIDE RECORDS SUMMARY | 2025-03-08 16:00 | XMS_ITS | Continuity of Care Document ---
Author Organization [facility] [address] [facility] [facility] [address] [place] [address] Phone [phone] Care Team Providers Care Supervisor Final Name Role Phone Madi Rees MD Care Team Information Receiv er [phone] Problems Active Problems Provider Date Severe adrenal insufficiency Levon Valle M.D. Onset: 01/13/2022 H/O: colitis Levon Valle M.D. Onset: 0 01/13/2022 Hyperlipidemia Levon Valle M.D. Onset: 0 01/13/2022 Essential hypertension Levon Valle M.D. O nset: 01/13/2022 Deep venous thrombosis Levon Valle M.D. O nset: 11/02/2022 Social History Type Date Description Comments Sex Female Sex Unknown Lives With Spouse Tobacco Use Start: Unknown Never Smoked Cigarettes ETOH Use Never used alcohol Allergies and adverse reactions Active Allergies Criticality Reaction Severity Comments Date Penicillin Unable to assess criticality 01/13/2022 Morphine Unable to assess criticality 01/13/2022 Medications Active Medications SIG Qnty Indications Order ing Provider Date Mjdekunobvsjuk82sw Tablets Take 1 Tablet By Mouth Every Day 90tabs Levon Valle M.D. 01/13/2022 Levothyroxine Ezupgg466gau Capsules 1 by mouth daily 30caps Vi Ng M.D. Amlodipine Sucdnefu5zv Tablets Take 1 Tablet By Mouth Every Day Madi Rees MD Losartan Zggdleytx197sk Tablets Take 1 Tablet By Mouth Every Day Madi Rees MD Pravastatin Jfxlmm88iv Tablets Take 1 Tablet By Mouth Every Day Madi Rees MD Eliquis2.5mg Tablets take 1 tablet by mouth twice a day Talia Urena M.D. Oxycodone UUB47we Tablets take 2-6 per day Unknown Onlbkbrbwv72.5mg Tablets 1 by mouth twice a day Unknown Lbyylydwhh83mh Capsules DR Take 1 Capsule By Mouth Every Day Madi Rees MD Amitriptyline XDE88es Tablets Take 4 Tablets By Mouth AT Bedtime Unknown Colestipol HCL1gm Tablets Take 1 Tablet By Mouth Every Day Before Breakfast Paulina Mireles MD Vital Signs Date Vital Result Comment 11/02/2022 8:37am Height 65 inches 5'5 Weight 187.25 lb BMI (Body Mass Index) 31.2 kg/m2 Medical Devices Description No Information Available Encounters Type Date Location Provider Dx Diagnosis Office Visit 11/02/2022 8:45a Main Office Levon Springer M.D. E27.2 [facility] crisis Assessments Date Code Description Provider 11/02/2022 E27.2 Severe adrenal insufficiency Levon Valle M.D. Plan of Treatment No Information Available Functional Status Description No Information Available Mental Status Description No Information Available Referrals Description No Information Available
--- OUTSIDE RECORDS SUMMARY | 2025-03-08 16:00 | XMS_ITS | Data Portability ---
Author Organization [facility] [employer] Address [address] [facility] [place] [address] Care Team Providers Care Tow Truck Dispatcher Name Role Phone RYLEE ZAYAS Referring Provider [phone] MACIE LEE Referring Provider RYLEE ZAYAS Primary Care Provider [facility] Prim moise Care Provider Assessment Encounter Date [...] studies May 08, 2021, Dr. Greg Dupree, [facility]: Right upper extremity nerve conduction studies are [...] By Organization Details Last Modified Time 05/11/2022 2887 Discussion acros s issues of diagnoses and [...] 05/11/2022 DATA REVIEW completed Rancho Herrera MD [address] [place] [address], [phone] 05/11/2022 14:20:56 Imaging Results None recorded. Procedure Notes None recorded. Medical Equipment None Reported. Allergies Allergen ID Allergen Name Allergen Category Reaction Reaction Severity Criticality Documentation Date Start Date Code Code System Note Provider Name and Address Organization Details Recorded Time 2148 morphine medicatio n Not available Not available Not available 05/11/2022 7052 RxNorm Neeru Worthingt on [facility] 3 13:04:28 2150 Augmentin medicatio n Not available Not available Not available 05/11/2022 99076 2 RxNorm Neeru Worthingt on [facility] 3 13:05:59 2151 Product containin g 3-hydroxy -3-methyl glutaryl- coenzyme A reductase inhibitor (product) medicatio n Not available Not available Not available 05/11/2022 67175 009 SNOMED Neeru DotBluingt on [facility] 3 13:06:06 Medications Name Sig Start Date [...] Updated DateTime 05/11/2022 165.1 cm 33.3 kg/m2 31695.47 g 12 /min [facility] 05/11/2022 13:04:09 Social History Question Answer Notes LastModified by Organizat ion Details LastModified Time Tobacco Smoking Status Former Smoker [facility] 05/11/2022 13:15:09 What Is Your Level Of Caffeine Consumption? Moderate [facility] Information not available 05/11/2022 What Is The Highest Grade Or Level Of School You Have Completed Or The Highest Degree You Have Received? [id number] [facility] Information not available 05/11/2022 Which Of Your Hands Is Dominant? Right [facility] Information not available 05/11/2022 Sex: Unknown Functional [...] 13:14:38 Medical History Condition Response Claustrophobia N Head Trauma/Injury N Hospitalizations N High Blood Pressure or Hypertension Y Thyroid Problems Y Depression N Brain Tumors N Lung Disease N COPD or emphysema N Encephalitis N PTSD N Vitamin B12 deficiency N Heart Attack ([place]) N Spine Problems N Obstructive Sleep Apnea N Alcoholism N Diabetes N Autoimmune disease N Bleeding Disorder N Arthritis N Cerebral Palsy N Tuberculosis N Developmental Problems N Neck Problems N Cancer N Back Problems N Stroke N Asthma N Heartburn, acid reflux, GERD N Vitamin D Deficiency Y Epilepsy/Seizures N Bipolar Disorder N Sleep Disorder N Aneurysm N Hepatitis N Liver Disease N Heart Disease N Fibromyalgia N Headaches Y High Cholesterol or Hyperlipidemia Y Osteoporosis N Kidney Disease N Gynecological HistoryNo gynecological history recorded. Obstetrics History GPAL:G 0 P 0 0 0 0 Past Encounters Encounter ID Performer Location Encounter Start Date Encounter Closed Date Diagnosis/Indication Diagnosis SNOMED-CT Code Diagnosis ICD10 Code Diagnosis IMO Codes Diagnosis Note [id number] Rancho Herrera MD [facility] [address] [place] [address] [place] [address] 05/11/2022 12:36:46 05/12/2022 08:30:39 Cervical radiculopathy 50503777 M54.12 Health Concerns Section Related Observation LastModified by Organization Detai ls LastModified Time None Recorded Concern Status LastModified by Organization Details LastModified Time None Recorded Advance Directives Directive None Recorded Payers Insurance Date Sequence Insurance Name Policy Number Policy Herbert Covered Member ID Herbert Member ID Guarantor Name 05/28/2022 1 [place] Nina Noriega [id number] Nina Noriega 05/28/2022 2 [facility] [id number] Nina Noriega [id number] Nina Noriega Notes Date Note Type [...] her most concerning symptoms: Rancho Herrera MD [address] [place] [address] [place], [address], [facility] 05/11/2022 16:23:34 OBGyn Episode No OBEpisode recorded.
== END 2025-03-08 13:11 | disposition home or self-care (01) ==
LOC: HO.HMGCX 13:10
PROVIDERS: PCP Internal Medicine; Visit Provider Student in an Organized Health Care Education/Training Program
DX: E04.2 Nontoxic multinodular goiter (principal)
CPT/HCPCS: 76536

== ENCOUNTER → 2025-03-08 13:14 | Outpatient (BNV) | payer MEDICARE, SELFPAY | PROVIDERS: PCP Internal Medicine; Visit Provider Radiology Diagnostic Radiology | DX: E04.2 Nontoxic multinodular goiter (principal); Z90.09 Acquired absence of other part of head and neck | CPT/HCPCS: 76536 ==

== ENCOUNTER 2025-03-20 11:03 | Outpatient (AMB) | payer MEDICARE, SELFPAY ==
[2025-03-20 11:12] VITALS: BP 130/80; PULSE 78; RESP 20; TEMP 36.6; O2SAT 95; BMI 32.4
--- NOTE | 2025-03-20 11:12 | AM.OFFWIN_ITS ---
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 Patient Tobacco Use Status: Former Tobacco user Allergies amoxicillin (From Augmentin) Allergy (Severe, Verified 03/20/25 11:17) Hives clavulanic acid (From Augmentin) Allergy (Severe, Verified 03/20/25 11:17) Hives morphine Allergy (Severe, Verified 03/20/25 11:17) Hives, itching HPI HPI Comments History of Present Illness Details History - The patient is a 74-year-old female pr esenting with respiratory symptoms and fatigue. - The patient reported receiving a COVID -19 vaccine and subsequently developed pneumonia approximately two weeks ago. - She began feeling sick about 10 to 12 days ago, with symptoms including coughing and significant fatigue. Seems to have gotten acutely worse 3 days ago. - She experienced some improvement but t hen returned to bed rest due to fatigue. - Interventions included the use of over -the-counter medications like DayQuil. - Secondary adrenal insufficiency: The p atient has a history of secondary adrenal insufficiency and was advised to follow a sick day rule, which she initially forgot. - She was supposed to receive Solu-Lali f via mail order, which was not delivered. - Denies history of COPD or asthma. Damon es fevers. [facility] Medical History Anemia Esophageal candidiasis Loose stools Hypothyroid Multinodular goiter (nontoxic) Secondary adrenal insufficiency Cataracts, bilateral GERD (gastroesophageal reflux disease) HLD (hyperlipidemia) HTN (hypertension) DVT (deep venous thrombosis) Hypercholesterolemia Trigeminal neuralgia Pituitary tumor Colitis Thyroid disease Surgical History Hx of right cataract extraction (12/25/24) History of removal of retained hardware (12/01/24) Hx of salpingo-oophorectomy, bilateral Hx of abdominal hysterectomy (1975) History of esophagogastroduodenoscopy (EGD) Hx of colonoscopy History of laminectomy Hx of breast surgery History of back surgery Family History Mother HTN (hypertension) Macular edema Arthritis Father Thyroid disease Diabetes Liver cancer Rheumatoid arthritis Sister Arthritis COPD (chronic obstructive pulmonary disease) Macular degeneration Social History Household Members: Family Are you a primary hearing care professional to a significant other at home: No Do you presently have visiting nurse or other home services: No Alcohol intake: never Patient Tobacco Use Status: Former Tobacco user Tobacco use type: Cigarette Cigarette Packs Per Day: 3 Years Smoked: 56.5 Review of Systems Narrative Review of Systems - General: Reports significant fatigue and weakness for the past 10 to 12 days. - Respiratory: Reports cough with occasional expectoration, denies wheezing but admits to some shortness of breath. - Gastrointestinal: Reports diarrhea, denies nausea or vomiting. - Endocrine: Reports adherence issues with adrenal insufficiency medication due to delivery problems. All systems reviewed and are unremarkable except as noted in HPI Physical Exam Exam Exam: Physical Exam General: Cooperative, healthy appearing, comfortable and no acute distress Orientation/consciousness: Patient oriented x3 Limitations: No limitations Head: Normal to inspection Ears: Hearing grossly normal bilaterally, external ears normal, EAC's normal bilaterally and TM's normal bilaterally Nose: Normal external nose present, Normal nares present and No nasal discharge present Face and sinus: Normal facial exam and bilateral maxillary sinuses tender Mouth: Normal oral and palatal mucosa present and moist mucous membranes Throat: tonsils normal, no exudates, uvula midline, posterior oropharynx erythema Eyes: Appearance normal, both eyes and all related structures Neck: Normal visual inspection, full ROM Respiratory: Dim but clear to auscultation bilaterally. Normal respiratory effort, able to speak in complete sentences, actively coughing, no respiratory distress, not tachypneic, no tripod positioning and no use of accessory muscles Cardiovascular: Regular rate and rhythm. Normal S1 and S2 Skin: No rashes or lesions noted Neuro: Patient oriented x3 Extremities: Normal to inspection and Yes no clubbing, cyanosis or edema Vital Signs: Last Vital Signs Temp 97.9 F 03/20/25 11:12 Pulse 78 03/20/25 11:12 Resp 20 03/20/25 11:12 BP 130/80 03/20/25 11:12 Pulse Ox 95 03/20/25 11:12 Oxygen Delivery Method Room Air 03/20/25 11:12 BMI result Body Mass Index 32.4 Assessment & Plan Assessment & Plan (1) Lower respiratory infection (e.g., bronchitis, pneumonia, pneumonitis, pulmonitis): Code(s): J22 - Unspecified acute lower respiratory infection Plan: Lower respiratory infection, bronchitis vs PNA - VSS, pt well appearing and PE remarkable for dim lungs with O2 sat 94-95%, double checked by me. - Plan includes obtaining a chest x-ray to rule out pneumonia. - If pneumonia is confirmed, antibiotics will be prescribed. - Continue current decongestant and antihistamine therapy. - Sent Tesslon Pearles for cough suppressant at night. - Sinus tenderness suggests sinusitis, and symptomatic treatment with decongestants is recommended. (2) Secondary adrenal insufficiency: Code(s): E27.49 - Other adrenocortical insufficiency Plan: Secondary Adrenal Insufficiency - Patient advised to follow sick day rules for medication dosing. 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 She didn't realize it was sent there. - Recommended she contact her managed care analyst to ensure proper management of adrenal insufficiency as she is sick beyond 72 hours. Plan Patient was informed and verbally consented to the use of an ambient scribe for clinic note documentation during this visit. Orders: Orders XR chest 2V Today R05.9 - Cough, unspecified SARS-CoV2/FLU/RSV Today R09.89 - Other specified symptoms and signs involving the circulatory and respiratory systems Medications: New benzonatate 200 mg PO BEDTIME PRN 10 caps 0RF cough Coding Level of Care Code New Pt Level 4 (91873) Diagnoses Lower respiratory infection (e.g., bronchitis, pneumonia, pneumonitis, pulmonitis) J22 Secondary adrenal insufficiency E27.49
== END 2025-03-20 12:01 | disposition home or self-care (01) ==
PROVIDERS: PCP Internal Medicine; Visit Provider Physician Assistant
DX: J22 Unspecified acute lower respiratory infection (principal); E27.49 Other adrenocortical insufficiency

== ENCOUNTER 2025-03-20 11:03 | Outpatient (REF) | payer MEDICARE, SELFPAY ==
--- NOTE | ~2025-03-20 | XR_ITS ---
EXAMINATION: XR CHEST CLINICAL INFORMATION: R05.9 - Cough, unspecified COMPARISON: None available. TECHNIQUE: 2 views of the chest were obtained. FINDINGS: The cardiac, hilar, and mediastinal contours are normal. Aortic mural calcifications. Lungs demonstrate bilateral coarse reticular and interstitial markings, suggestive of chronic interstitial lung disease. Correlation with prior imaging is recommended. There is no effusion or pneumothorax. There is no focal osseous or soft tissue abnormality. There is fusion hardware in the lower cervical and upper thoracic spine. There are degenerative changes in the spine. XR/XR chest 2V IMPRESSION: 1. Bilateral reticular opacities and coarse and interstitial markings throughout both lungs, right greater than left, suggestive of chronic interstitial lung disease. Correlation with prior imaging is recommended. If there is no history of chronic lung disease, findings could represent acute atypical pneumonia or multi lobar pneumonia in the appropriate clinical setting. 2. There is no effusion. Electronically signed by: Artem Villalta MD 03/20/2025 12:16 PM BARBIE
[2025-03-20 14:24] LABS: Resp Syncy Virus RNA Qual PCR NEGATIVE (Negative); SARS COV2 PCR INHOUSE NEGATIVE (Negative)
--- OUTSIDE RECORDS SUMMARY | 2025-03-21 02:35 | XMS_ITS | Data Portability ---
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 Greg Dupree, [facility]: Right upper extremity nerve conduction studies are [...] By Organization Details Last Modified Time 05/11/2022 0162 Discussion acros s issues of diagnoses and [...] 05/11/2022 DATA REVIEW completed Rancho Herrera MD [address] [place] [address], [phone] 05/11/2022 14:20:56 Imaging Results None recorded. Procedure Notes None recorded. Medical Equipment None Reported. Allergies Allergen ID Allergen Name Allergen Category Reaction Reaction Severity Criticality Documentation Date Start Date Code Code System Note Provider Name and Address Organization Details Recorded Time 2148 morphine medicatio n Not available Not available Not available 05/11/2022 7052 RxNorm Neeru Worthingt on [facility] 3 13:04:28 2150 Augmentin medicatio n Not available Not available Not available 05/11/2022 39238 2 RxNorm Neeru Wor[facility]t on [facility] 3 13:05:59 2151 Product containin g 3-hydroxy -3-methyl glutaryl- coenzyme A reductase inhibitor (product) medicatio n Not available Not available Not available 05/11/2022 18465 009 SNOMED Neeru [employer] on [facility] 3 13:06:06 Medications Name Sig Start [...] Updated DateTime 05/11/2022 165.1 cm 33.3 kg/m2 36821.47 g 12 /min [facility] 05/11/2022 13:04:09 Social History Question Answer Notes LastModified by Organizat ion Details LastModified Time Tobacco Smoking Status Former Smoker [facility] 05/11/2022 13:15:09 What Is Your Level Of Caffeine Consumption? Moderate [facility] Information not available 05/11/2022 What Is The Highest Grade Or Level Of School You Have Completed Or The Highest Degree You Have Received? [id number] [facility] Information not available 05/11/2022 Which Of Your [...] Y Thyroid Problems Y Lung Disease N Depression N COPD or emphysema N Brain Tumors N Encephalitis N Vitamin B12 deficiency N PTSD N Spine Problems N Heart Attack ([place]) N Obstructive Sleep Apnea N Alcoholism N [...] Codes Diagnosis Note 7405 Rancho Herrera MD [facility] [address] [place] [address] [place] [address] 05/11/2022 12:36:46 05/12/2022 08:30:39 Cervical radiculopathy 04455852 M54.12 Health Concerns Section Related Observation LastModified by Organization Detai ls LastModified Time None Recorded Concern Status LastModified by Organization Details LastModified Time None Recorded Advance Directives Directive None Recorded Payers Insurance Date Sequence Insurance Name Policy Number Policy Herbert Covered Member ID Herbert Member ID Guarantor Name 05/28/2022 1 [place]: [employer] Nina Noriega [id number] Nina Noriega 05/28/2022 2 [facility] [id number] Nina Noriega [id number] Nina Noriega Notes Date Note Type [...] her most concerning symptoms: Rancho Herrera MD [address] [place] [address] [place], [address], [facility] 05/11/2022 16:23:34 OBGyn Episode No OBEpisode recorded.
--- OUTSIDE RECORDS SUMMARY | 2025-03-21 02:36 | XMS_ITS | Clinical Summary ---
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 90 each 1 12/19/19 25 Active pantoprazole (PROTONIX) 40 mg EC [...] nostril as directed 30 mL 1 02/08/20 Active estradioL (ESTRACE) 0.01 % (0.1 mg/gram) vaginal cream APPLY 1/2 GRAM ON MONDAYS, WEDNESDAYS AND FRIDAYS 42.5 g 1 02/14/20 25 Active hydrALAZINE (APRESOLINE) 10 mg tablet TAKE 1 TABLET TWICE A DAY 180 tablet 1 03/06/20 25 Active colestipoL (COLESTID) 1 gram tablet Take 1 tablet (1 g total) by mouth 4 (four) times a day. 120 tablet 03/06/20 25 Active diphenoxylate- atropine (LOMOTIL) 2.5-0.025 mg per tablet TAKE 1 TABLET 3 TIMES A DAYIF NEEDED FOR DIARRHEA. MAXIMUM DAILY AMOUNT: 3 TABLETS 60 tablet 03/16/20 25 Active diphenoxylate- atropine (LOMOTIL) 2.5-0.025 mg per tablet Take 1 tablet by mouth 3 (three) times a day if needed for diarrhea. Max Daily Amount: 3 tablets 60 tablet 01/23/20 25 025 Discontinued colestipoL (COLESTID) 1 gram [...] esophagi tis 07/18/2024 Allergic rhinitis 03/10/2024 Hypogammaglobulinemia ([facility] V24) 03/10/2024 Trigeminal neuralgia 03/10/2024 Overview (03/10/2024): Had surgery to relieve 2012 - not effective Restless leg syndrome 03/10/2024 Hypothyroidism due to acquired atrophy of thyroi d 08/23/2023 Mild intermittent asthma without complication Hypertriglyceridemia 08/23/2023 SI joint arthritis ([facility] V24) 08/23/2023 Pelvic pain 04/02/2022 Overview [...] t3; Future Microscopic colitis 08/10/2019 Esophageal candidiasis ([facility] V24, [facility] V28 ) 08/10/2019 Asthma 07/20/2019 Chronic headache disorder 06/02/2017 Overview (03/10/2024): Onset approx 2015. 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 Lifelong anticoagulation recommended by Dr. Hills Pituitary adenoma ([facility] V24, [facility] V28) Overview (03/10/2024): 5 mm on MRI of 12/29/2013 Chronic left-sided low back pain with left-sided sciatica 03/21/2013 Overview (03/10/2024): Per pt: [facility], Dr. 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 Dr. Jose C Tariq [phone] Cervicalgia 09/21/2012 Chronic pain 03/10/2012 Hypothyroid 03/10/2012 [...] 11:30 AM EDT Consult Orthopedic Surgery - [place] [address] [facility] [address] [place] [id number] Rona Winn PA Arthritis of left hand (Primary Dx); Carpal tunnel syndrome on left 01/22/2025 2:09 PM EDT - 01/22/2025 11:59 PM EDT Hospital Encounter [facility] [address] [place] [address] Carpal tunnel syndrome on left Discharge Disposition: Home or Self Care 01/17/2025 12:27 PM EDT - 01/17/2025 11:59 PM EDT Hospital Encounter [facility] [place] [address] [place] [address] Encounter for screening for osteoporosis Discharge Disposition: Home or Self Care 12/22/2024 Telephone [facility] [place] [address], [place] [phone] Madi Rees MD from Last 3 Months Immunizations Immunization Administration [...] lumbar 2003 and 2005 SINUS SURGERY PROCEDURE: ID UNLISTED PROCEDURE ACCESSORY SINUSES; COMMENT: 2006 OTHER SURGICAL HISTORY PROCEDURE: ID TOTAL ABDOMINAL HYSTERECT W/WO RMVL TUBE OVARY; COMMENT: uterus 1975, one ovary 1982, other one 1985 OTHER SURGICAL HISTORY PROCEDURE: HISTORICAL UNSPECIFIED SURGERY; COMMENT: decompression brain surgery for trigem neuralgia BREAST SURGERY Left PROCEDURE: ID UNLISTED PROCEDURE BREAST; COMMENT: ductal ectasia OTHER SURGICAL HISTORY 03/10/2016 PROCEDURE: ID ERCP W/SPHINCTEROTOMY/PAPILLOT ALEX; COMMENT: [facility]; pancreatic sphincterotomy and stent placement; complicated by retroperitoneal perforation. UPPER GASTROINTESTINAL ENDOSCOPY 12/07/2014 PROCEDURE: ID UPPER GI ENDOSCOPY PERFORMED; COMMENT: [facility]; Few small gastric erosions; no H. pylori; nl duodenal bx. COLONOSCOPY 12/07/2014 PROCEDURE: HISTORICAL COLONOSCOPY; COMMENT: [facility]; Hemorrhoids; normal biopsies OTHER SURGICAL HISTORY 04/09/2017 PROCEDURE: NUCLEAR EXAM OF STOMACH EMPTYING; COMMENT: Normal. COLONOSCOPY 07/26/2019 PROCEDURE: HISTORICAL COLONOSCOPY; COMMENT: collagenous colitis on biopsy UPPER GASTROINTESTINAL ENDOSCOPY 07/26/2019 PROCEDURE: UPPER GI ENDOSCOPY/EXAM; COMMENT: hiatal hernia ESOPHAGOGASTRODUODENOSCOPY 04/14/2022 PROCEDURE: ID EGD TRANSORAL BIOPSY SINGLE/MULTIPLE; COMMENT: esoph normal [...] for your loved ones. For example, children's service supervisor or elderly care for an older [...] Care Team (Late st Contact Info) Description 04/20/2025 11:15 AM EST Office Visit Adult [facility] [address] [place] [address] Madi Rees MD [address] [place] [address] Health Maintenance Due Date Last Done Comments [...] Procedure Name Priority Date/Time Associated Diagnosis Comments EXTERNAL ULTRASOUND REPORT 03/08/2025 ID INJECTION CARPAL TUNNEL THERAPEUTIC Routine 01/25/2025 11:30 [...] Recently Relevant to Health Maintenance Results * External Ultrasound Report (03/08/2025) Anatomical Region Laterality Modality Ultrasound us Provider [facility] IMG US PROCEDURES Final Result * ID INJECTION CARPAL TUNNEL THERAPEUTIC (01/25/2025 11:30 AM [...] original result were not included. [facility] [address] [place] [id number] Electromyograph Report Date of service: 01/22/25 Patient [...] note were not included. [facility] [address] [place] [address] Electromyograph Report Date of service: 01/22/25 Patient [...] EDT Impression: Osteoporosis by WHO criteria. [facility] Department of Internal Medicine recommends using National [...] alternative screening schedule based on rosey Clark., [facility] May 21, 2011 for patients [...] Signed Date: 01/18/2025 06:18 ET Workstation ID: [id number] Transcribed By: Self Edit Transcribed Date: 01/18/2025 [...] IMPRESSION: Impression: Osteoporosis by WHO criteria. [facility] Department of Internal Medicine recommendsusing National Osteoporosis [...] alternative screening schedule based on rosey Clark., [facility] for patients with osteopenia (based on [...] Signed Date: 01/18/2025 06:18 ET Workstation ID: [id number] Transcribed By: Self Edit Transcribed Date: 01/18/2025 06:16 ET us Madi Rees MD IM DXA PROCEDURES Final Re sult * (ABNORMAL) Basic metabolic panel (10/26/2024 1:29 PM EDT) Sodium 138 133 - 145 mmol/L LAB CHEMISTRY METHOD 10/26/2024 5:05 PM [facility] Potassium 4.9 3.5 - 5.5 mmol/L LAB CHEMISTRY METHOD 10/26/2024 5:05 PM [facility] Chloride 99 96 - 110 mmol/L LAB CHEMISTRY METHOD 10/26/2024 5:05 PM [facility] CO2 32 21 - 32 mmol/L LAB CHEMISTRY METHOD 10/26/2024 5:05 PM [facility] Anion Gap 7 3 - 11 LAB CHEMISTRY METHOD 10/26/2024 5:05 PM [facility] Glucose 121(H) 70 - 100 mg/dL LAB CHEMISTRY METHOD 10/26/2024 5:05 PM [facility] BUN 19 5 - 25 mg/dL LAB CHEMISTRY METHOD 10/26/2024 5:05 PM [facility] Creatinine 1.06 0.50 - 1.10 mg/dL LAB CHEMISTRY METHOD 10/26/2024 5:05 PM EDT [facility] eGFR 56(L) >=60 mL/min/1. 73m2 LAB CHEMISTRY METHOD 10/26/2024 5:05 PM EDT [facility] Comment:Calculation based on the Chronic Kidney Disease Epidemiology Collaboration (CKD-EPI) equation refit without adjustment for race. BUN/Creatinine Ratio 17.9 LAB CHEMISTRY METHOD 10/26/2024 5:05 PM EDT [facility] Calcium 9.7 8.5 - 10.5 mg/dL LAB CHEMISTRY METHOD 10/26/2024 5:05 PM EDT [facility] Blood Venous blood specimen / Unknown Venipuncture / Unknown 10/26/2024 1:29 PM EDT 10/26/2024 1:29 PM EDT Madi Rees MD LAB BLOOD ORDERABLES Final Result [facility] [address] [place] [address], * SCREENING MAMMOGRAPHY BI 2-VIEW BREAST INC [...] evidence of malignancy. BI-RADS 1 - negative [facility] [address] [place] [address] Procedure Note Dana Weeks MD - 03/04/2024 [...] evidence of malignancy. BI-RADS 1 - negative [facility] [address] [place] [address] Result [facility] Madi Rees MD IMG XR PROCEDURES Final Res ult * Lipid panel (02/25/2024) [facility] LDL/HDL Ratio 2 0 - 4 Triglycerides 125 0 - 150 mg/dL Cholesterol 180 0 - 200 mg/dL HDL 100 >=40 mg/dL LDL Cholesterol 55 0 - 100 mg/dL Blood Venous blood specimen / Unknown Result [facility] Provider LAB BLOOD ORDERABLES Isabelle l Result * Falls Risk Assessment (01/11/2023) [facility] Falls Risk Assessment Abstracted Result [facility] Provider HEALTH MAINTENANCE Final Result * Depression Screening (01/11/2023) [facility] Depression Screening Abstracted Result [facility] Provider HEALTH MAINTENANCE Final Result * Colonoscopy (07/26/2019) [facility] Colonoscopy No interpretation , abstracted Anatomical Region Laterality Modality Other [facility] Provider HEALTH MAINTENANCE Final Result * Hepatitis C Screening (09/21/2012) [facility] Hepatitis C Screening Abstracted us Historical Provider HEALTH MAINTENANCE Final Result from Last 3 Months or Most Recently Relevant to Health Maintenance Insurance MEDICARE [facility] 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
== END 2025-03-20 11:04 | disposition home or self-care (01) ==
LOC: HO.HMGCX 11:03
PROVIDERS: PCP Internal Medicine; Visit Provider Physician Assistant
DX: J22 Unspecified acute lower respiratory infection (principal); E27.49 Other adrenocortical insufficiency; Z87.891 Personal history of nicotine dependence
CPT/HCPCS: 71046; 87637; 99202

== ENCOUNTER → 2025-03-20 11:56 | Outpatient (BNV) | payer MEDICARE, SELFPAY | PROVIDERS: PCP Internal Medicine; Visit Provider Radiology Diagnostic Radiology | DX: R91.8 Other nonspecific abnormal finding of lung field (principal) | CPT/HCPCS: 71046 ==

== ENCOUNTER 2025-03-26 12:03 | Outpatient (AMB) | payer MEDICARE, SELFPAY ==
--- NOTE | 2025-03-26 12:43 | AM.OFFWIN_ITS ---
Intake Vital Signs 03/26/25 12:44 Height 5 ft 4 in Weight 189 lb BMI 32.4 BP 110/58 L Blood Pressure Location Rt brachial Position Sitting Pulse 69 Pulse Source Pulse Oximeter Temp 98 F Temp Source Oral Pulse Oximetry (%) 96 Oxygen Delivery Method Room Air Intake Visit Reasons: EP Cough, SOB, fatigue Intake Note: Patient returns c/o cough, SOB - seen on 03/20 & dx pneumonia. Patient completed abx & still not feeling better. Patient Tobacco Use Status: Former Tobacco user Allergies amoxicillin (From Augmentin) Allergy (Severe, Verified 03/26/25 12:48) Hives clavulanic acid (From Augmentin) Allergy (Severe, Verified 03/26/25 12:48) Hives morphine Allergy (Severe, Verified 03/26/25 12:48) Hives, itching HPI HPI Comments History of Present Illness Details 74-year-old female presents to the walk- in clinic with shortness of breath, wheezing, chest tightness, persistent cough, fatigue, poor appetite, and subjective fevers for the past few weeks. She was previously seen on 03/20 and diagnosed with multilobar pneumonia, for which she completed a 5-day course of Levaquin 750 mg without symptom improvement. She reports strict adherence to her medications and confirms PCN allergy (Augmentin ? hives). She also has a known history of secondary adrenal insufficiency and has been following sick-day steroid dosing as instructed. Denies hemoptysis. Endorses ongoing generalized weakness and feeling ?worn out.? No relief with OTC measures. Chest Xray results: IMPRESSION: 1. Bilateral reticular opacities and coa rse and interstitial markings throughout both lungs, right greater than left, suggestive of chronic interstitial lung disease. If there is no history of chronic lung disease, findings could represent acute atypical pneumonia or multi lobar pneumonia in the appropriate clinical setting. There is no effusion. Advised Pt to go to ED for further Evaluation and treatment. [facility] Medical History Anemia Esophageal candidiasis Loose stools Hypothyroid Multinodular goiter (nontoxic) Secondary adrenal insufficiency Cataracts, bilateral GERD (gastroesophageal reflux disease) HLD (hyperlipidemia) HTN (hypertension) DVT (deep venous thrombosis) Hypercholesterolemia Trigeminal neuralgia Pituitary tumor Colitis Thyroid disease Surgical History Hx of right cataract extraction (12/25/24) History of removal of retained hardware (12/01/24) Hx of salpingo-oophorectomy, bilateral Hx of abdominal hysterectomy (1975) History of esophagogastroduodenoscopy (EGD) Hx of colonoscopy History of laminectomy Hx of breast surgery History of back surgery Family History Mother HTN (hypertension) Macular edema Arthritis Father Thyroid disease Diabetes Liver cancer Rheumatoid arthritis Sister Arthritis COPD (chronic obstructive pulmonary disease) Macular degeneration Social History Household Members: Family Are you a primary child care centre manager to a significant other at home: No Do you presently have visiting nurse or other home services: No Alcohol intake: never Patient Tobacco Use Status: Former Tobacco user Tobacco use type: Cigarette Cigarette Packs Per Day: 3 Years Smoked: 56.5 Review of Systems Const All systems reviewed & are unremarkable except as noted in HPI and below Physical Exam Vital Signs: Last Vital Signs Temp 98 F 03/26/25 12:44 Pulse 69 03/26/25 12:44 BP 110/58 L 03/26/25 12:44 Pulse Ox 96 03/26/25 12:44 Oxygen Delivery Method Room Air 03/26/25 12:44 BMI result Body Mass Index 32.4 Const Other: Ill-appearing, fatigued, mild respiratory distress. General: no acute distress, lethargic and tired appearing Nutritional Appearance: obese Orientation/consciousness: patient oriented x3 and lethargic Resp Effort & Inspection: normal respiratory effort, able to speak in complete sentences, audible wheezes and Actively coughing Auscultation: no crackles, no rales, rhonchi and wheezes Cardio Heart sounds: S1 normal heart sound present and S2 normal heart sound present Neuro General: patient oriented x3, gait normal and moves all extremities Psych Speech and movement: Normal speech and movement present Assessment & Plan Assessment & Plan (1) Lower respiratory infection (e.g., bronchitis, pneumonia, pneumonitis, pulmonitis): Code(s): J22 - Unspecified acute lower respiratory infection Plan: Persistent multilobar pneumonia ? lack of improvement post-Levaquin concerning for resistant organism, atypical pathogen, or inadequate coverage. Secondary adrenal insufficiency ? currently following sick-day rules; monitor for adrenal crisis risk. PCN allergy limits antibiotic choices ? requires alternative regimen. Since no improvement on Levaquin and PCN allergy - Sent to ED for IV therapy. Patient and agreed to ED follow up today. Coding Level of Care Code Est Pt Level 4 (44916) Diagnoses Lower respiratory infection (e.g., bronchitis, pneumonia, pneumonitis, pulmonitis) J22 Time Spent (min) 20
[2025-03-26 12:44] VITALS: BP 110/58; PULSE 69; TEMP 36.6; O2SAT 96; BMI 32.4
--- OUTSIDE RECORDS SUMMARY | 2025-03-26 16:04 | XMS_ITS | Clinical Summary ---
Author Organization [facility] [address] [facility] Address [address] [place] [address] Phone Care Team Providers Care Engraver Ornamental Design Name Role Phone Madi Rees MD Primary [...] esophagi tis 07/18/2024 Allergic rhinitis 03/10/2024 Hypogammaglobulinemia ([facility] V24) 03/10/2024 Trigeminal neuralgia 03/10/2024 Overview (03/10/2024): Had surgery to relieve 2012 - not effective Restless leg syndrome 03/10/2024 Hypothyroidism due to acquired atrophy of thyroi d 08/23/2023 Mild intermittent asthma without complication Hypertriglyceridemia 08/23/2023 SI joint arthritis ([facility] V24) 08/23/2023 Pelvic pain 04/02/2022 Overview [...] t3; Future Microscopic colitis 08/10/2019 Esophageal candidiasis ([facility] V24, [facility] V28 ) 08/10/2019 Asthma 07/20/2019 Chronic headache disorder 06/02/2017 Overview (03/10/2024): Onset approx 2015. 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 Lifelong anticoagulation recommended by Dr. Hills Pituitary adenoma ([facility] V24, [facility] V28) Overview (03/10/2024): 5 mm on MRI of 12/29/2013 Chronic left-sided low back pain with left-sided sciatica 03/21/2013 Overview (03/10/2024): Per pt: [facility], Dr. 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 Jose C Tariq [phone] Cervicalgia 09/21/2012 Chronic pain 03/10/2012 Hypothyroid 03/10/2012 [...] 11:30 AM EDT Consult Orthopedic Surgery - [place] [address] [facility] [address] [place] [id number] Rona Winn PA Arthritis of left hand (Primary Dx); Carpal tunnel syndrome on left 01/22/2025 2:09 PM EDT - 01/22/2025 11:59 PM EDT Hospital Encounter [facility] [address] [place] [address] Carpal tunnel syndrome on left Discharge Disposition: Home or Self Care 01/17/2025 12:27 PM EDT - 01/17/2025 11:59 PM EDT Hospital Encounter [facility] [address] [address] Encounter for screening for osteoporosis Discharge Disposition: Home or Self Care from Last 3 Months Immunizations Immunization Administration Dates Next Due COVID-19 (Pfizer/Comirnaty) 12yo and older 01/11/2024 Influenza Quadravalent, MDCK , 0.5ml, with preservative (Flucelvax) 6mo and older 03/16/2017 Influenza trivalent, 0.5mL ( Fluad) 65yo and older 01/11/2024,01/11/2023,01/08/2022,01/21,02/14/2020,03/08/2018 Influenza trivalent, 0.5mL, preservative free (Fluarix; FluLaval; Fluzone) ages 6mo and older (Afluria) 3 years and older 04/07/2016,02/06/2014,03/21/2013,03/10 Moderna SARS-CoV-2 COVID-19, mRNA, LNP-S, preservative free 08/18/2021,02/26/2021,07/26/2020,06/28 [facility] SARS-CoV-2 COVID-19, mRNA, LNP-S, preservative free 01/11/2024 [...] lumbar 2003 and 2005 SINUS SURGERY PROCEDURE: ND UNLISTED PROCEDURE ACCESSORY SINUSES; COMMENT: 2006 OTHER SURGICAL HISTORY PROCEDURE: ND TOTAL ABDOMINAL HYSTERECT W/WO RMVL TUBE OVARY; COMMENT: uterus 1975, one ovary 1982, other one 1985 OTHER SURGICAL HISTORY PROCEDURE: HISTORICAL UNSPECIFIED SURGERY; COMMENT: decompression brain surgery for trigem neuralgia BREAST SURGERY Left PROCEDURE: ND UNLISTED PROCEDURE BREAST; COMMENT: ductal ectasia OTHER SURGICAL HISTORY 03/10/2016 PROCEDURE: ND ERCP W/SPHINCTEROTOMY/PAPILLOT ALEX; COMMENT: [facility]; pancreatic sphincterotomy and stent placement; complicated by retroperitoneal perforation. UPPER GASTROINTESTINAL ENDOSCOPY 12/07/2014 PROCEDURE: ND UPPER GI ENDOSCOPY PERFORMED; COMMENT: [facility]; Few small gastric erosions; no H. pylori; nl duodenal bx. COLONOSCOPY 12/07/2014 PROCEDURE: HISTORICAL COLONOSCOPY; COMMENT: [facility]; Hemorrhoids; normal biopsies OTHER SURGICAL HISTORY 04/09/2017 PROCEDURE: NUCLEAR EXAM OF STOMACH EMPTYING; COMMENT: Normal. COLONOSCOPY 07/26/2019 PROCEDURE: HISTORICAL COLONOSCOPY; COMMENT: collagenous colitis on biopsy UPPER GASTROINTESTINAL ENDOSCOPY 07/26/2019 PROCEDURE: UPPER GI ENDOSCOPY/EXAM; COMMENT: hiatal hernia ESOPHAGOGASTRODUODENOSCOPY 04/14/2022 PROCEDURE: ND EGD TRANSORAL BIOPSY SINGLE/MULTIPLE; COMMENT: esoph normal [...] Record ed Within the last 3 months, laf peres many times did you visit the emergency [...] do you feel lonely or isolated from ose around you? Rarely 12/12/2024 Food Risk [...] care for your loved ones. For example, rn child or elderly care for an older adult? [...] 11:15 AM EST Office Visit Adult Medicine [facility] [address] [place] [address] Madi Rees MD [address] [place] [address] Health Maintenance Due Date Last Done Comments [...] Associated Diagnosis Comments EXTERNAL ULTRASOUND REPORT 03/08/2025 ND INJECTION CARPAL TUNNEL THERAPEUTIC Routine 01/25/2025 11:30 [...] Onbase IMG US PROCEDURES Final Result * ND INJECTION CARPAL TUNNEL THERAPEUTIC (01/25/2025 11:30 AM [...] original result were not included. [facility] [address] [place] [address] Electromyograph Report Date of service: 01/22/25 Patient [...] original note were not included. [facility] [address] [place] [address] Electromyograph Report Date of service: 01/22/25 Patient [...] EDT Impression: Osteoporosis by WHO criteria. [facility] Department of Internal Medicine recommends [...] alternative screening schedule based on rosey Clark., [facility] May 21, 2011 for patients [...] Signed Date: 01/18/2025 06:18 ET Workstation ID: [id number] Transcribed By: Self Edit Transcribed Date: 01/18/2025 [...] IMPRESSION: Impression: Osteoporosis by WHO criteria. [facility] Department of Internal Medicine recommendsusing [...] alternative screening schedule based on rosey Clark., [facility] for patients with osteopenia [...] Signed Date: 01/18/2025 06:18 ET Workstation ID: [id number] Transcribed By: Self Edit Transcribed Date: 01/18/2025 06:16 ET us Madi Rees MD IM DXA PROCEDURES Final Re sult * (ABNORMAL) Basic metabolic panel (10/26/2024 1:29 PM EDT) Sodium 138 133 - 145 mmol/L LAB CHEMISTRY METHOD 10/26/2024 5:05 PM [facility] Potassium 4.9 3.5 - 5.5 [...] LAB CHEMISTRY METHOD 10/26/2024 5:05 PM EDT [facility] Comment:Calculation based on the Chronic Kidney Disease Epidemiology Collaboration (CKD-EPI) equation refit without adjustment for race. BUN/Creatinine Ratio 17.9 LAB CHEMISTRY METHOD 10/26/2024 5:05 PM EDT [facility] Calcium 9.7 8.5 - 10.5 mg/dL LAB CHEMISTRY METHOD 10/26/2024 5:05 PM EDT [facility] Blood Venous blood specimen / Unknown Venipuncture / Unknown 10/26/2024 1:29 PM EDT 10/26/2024 1:29 PM EDT Madi Rees MD LAB BLOOD ORDERABLES Final Result [facility] [address] [place] [address], * SCREENING MAMMOGRAPHY BI 2-VIEW BREAST INC [...] evidence of malignancy. BI-RADS 1 - negative [facility] [address] [address] Procedure Note Dana Weeks MD - 03/04/2024 [...] evidence of malignancy. BI-RADS 1 - negative [address] [address] Result [facility] Madi Rees MD IMG XR PROCEDURES Final Res ult * Lipid panel (02/25/2024) [facility] LDL/HDL Ratio 2 0 - 4 Triglycerides 125 0 - 150 mg/dL Cholesterol 180 0 - 200 mg/dL HDL 100 >=40 mg/dL LDL Cholesterol 55 0 - 100 mg/dL Blood Venous blood specimen / Unknown Result [facility] LAB BLOOD ORDERABLES Isabelle l Result * Falls Risk Assessment (01/11/2023) [facility] Falls Risk Assessment Abstracted Result [facility] Provider HEALTH MAINTENANCE Final Result * Depression Screening (01/11/2023) [facility] Depression Screening Abstracted Result [facility] Provider HEALTH MAINTENANCE Final Result * Colonoscopy (07/26/2019) [facility] Colonoscopy No interpretation , abstracted Anatomical Region Laterality Modality Other Result [facility] Provider HEALTH MAINTENANCE Final Result * Hepatitis C Screening (09/21/2012) [facility] Hepatitis C Screening Abstracted [facility] Provider HEALTH MAINTENANCE Final Result from Last 3 Months or Most Recently Relevant to Health Maintenance Insurance MEDICARE [facility] Care Teams Engraver [employer]namental [employer] Relationship Specialty Start Date End Date Madi Rees MD [address] [place] [address] PCP - General Internal Medicine 10/06/21
== END 2025-03-26 13:50 | disposition home or self-care (01) ==
PROVIDERS: PCP Internal Medicine; Visit Provider Nurse Practitioner Family
DX: J22 Unspecified acute lower respiratory infection (principal)

== ENCOUNTER 2025-03-26 15:27 | Emergency (ER) | payer MEDICARE, SELFPAY ==
--- NOTE | ~2025-03-26 | XR_ITS ---
EXAMINATION: XR CHEST CLINICAL INFORMATION: SOB COMPARISON: 03/20/2025 TECHNIQUE: 2 views of the chest were obtained. FINDINGS: The cardiac, hilar, and mediastinal contours are normal. Aortic mural calcifications. Previously seen bilateral coarse reticular markings and increased interstitial markings have significantly improved since the prior radiograph, likely reflecting improving pneumonia or improving inflammatory abnormalities. There are no effusions. There is no pneumothorax. There is no focal osseous or soft tissue abnormality. XR/XR chest 2V IMPRESSION: 1. Overall improving bilateral reticular abnormalities in both lungs, suggesting improving pneumonia or improving inflammatory abnormality. 2. No new pulmonary disease present. There are no effusions. Electronically signed by: Artem Villalta MD 03/26/2025 04:05 PM [facility]
[2025-03-26 15:36] VITALS: BP 143/93; PULSE 74; RESP 18; TEMP 36.7; O2SAT 98; BMI 34.3
--- NOTE | 2025-03-26 15:38 | ED.GENADULT ---
HPI - General Adult General Chief complaint: Dyspnea Stated complaint: PNEUMONIA Time Seen by Provider: 03/26/25 17:12 Source: patient and family Mode of arrival: ambulatory Limitations: no limitations History of Present Illness ED Provider: Dr. Mary Vasquez Related Data Home Medications ?Medication ?Instructions ?Recorded ?Confirmed albuterol sulfate 90 mcg/actuation 2 puff inhalation Q4H PRN wheezing 10/26/24 02/22/25 aerosol inhaler amitriptyline 10 mg tablet 10 mg PO BEDTIME 10/26/24 02/22/25 apixaban 2.5 mg tablet (Eliquis) 2.5 mg PO BID 10/26/24 02/22/25 azelastine 137 mcg (0.1 %) nasal 1 spray intranasal BID 10/26/24 02/22/25 spray carvedilol 12.5 mg tablet 12.5 mg PO BID 10/26/24 02/22/25 colestipol 1 gram tablet PO 10/26/24 01/11/25 diphenoxylate-atropine 2.5 1 tab PO TID PRN diarrhea 10/26/24 02/22/25 mg-0.025 mg tablet (Lomotil) fenofibrate 54 mg tablet 54 mg PO BEDTIME 10/26/24 02/22/25 furosemide 20 mg tablet 20 mg PO DAILY 10/26/24 02/22/25 levothyroxine 125 mcg tablet 125 mcg PO DAILY 10/26/24 02/22/25 (Synthroid) losartan 100 mg tablet 100 mg PO DAILY 10/26/24 02/22/25 cholecalciferol (vitamin D3) 50 50 mcg PO DAILY 12/21/24 02/22/25 mcg (2,000 unit) tablet (Vitamin D3) conjugated estrogens 0.625 mg/gram 0.625 mg vaginal 3XW 12/21/24 02/22/25 vaginal cream (Premarin) hydrochlorothiazide 12.5 mg tablet 12.5 mg PO DAILY 12/21/24 02/22/25 oxycodone 5 mg tablet mg PO 12/21/24 02/22/25 pravastatin 40 mg tablet 40 mg PO DAILY 12/21/24 02/22/25 pramipexole 0.125 mg tablet 0.125 mg PO BEDTIME 01/11/25 02/22/25 hydralazine 10 mg tablet 10 mg PO BID 03/20/25 Previous Rx's ?Medication ?Instructions ?Recorded hydrocortisone 10 mg tablet See Rx Instructions PO .COMPLEX 01/11/25 #135 tabs hydrocortisone sod succ (PF) 100 100 mg (2 mL) IM DAILY #2 mL 01/11/25 mg/2 mL solution for injection (Solu-Cortef Act-O-Vial (PF)) needle (disp) 19 G 19 gauge x 1 #10 ea 01/11/25 (BD Regular Bevel [place]) safety needles 23 gauge x 1 (BD #10 ea 01/11/25 SafetyGlide Needle) syringe with needle, safety 3 mL #10 ea 01/11/25 23 gauge x 1 (Aqinject Safety Syringe) cholestyramine 4 gram oral powder 12 g PO DAILY #378 grams 02/22/25 dicyclomine 20 mg tablet 20 mg PO QID PRN abdominal pain 02/22/25 #180 tabs loperamide 2 mg capsule 2 mg PO Q6H PRN loose stool #60 02/22/25 caps pantoprazole 40 mg tablet,delayed 40 mg PO QAM #90 tabs 02/22/25 release ondansetron 4 mg disintegrating 4 mg PO Q8H PRN for nausea #20 tabs 03/23/25 tablet codeine 8 mg-guaifenesin 200 mg/5 5 ml PO Q6H PRN cough #473 mL 03/26/25 mL oral liquid hydrocortisone 10 mg tablet 20 mg (2 x 10 mg) PO ONCE #30 tabs 03/26/25 levofloxacin 500 mg tablet 500 mg PO DAILY #7 tabs 03/26/25 Allergies Allergy/AdvReac Type Severity Reaction Status Date / Time amoxicillin (From Augmentin) Allergy Severe Hives Verified 03/26/25 15:40 clavulanic acid (From Allergy Severe Hives Verified 03/26/25 15:40 Augmentin) morphine Allergy Severe Hives, Verified 03/26/25 15:40 itching PMFSH Past Medical History Medical History Anemia Esophageal candidiasis Loose stools Hypothyroid Multinodular goiter (nontoxic) Secondary adrenal insufficiency Cataracts, bilateral GERD (gastroesophageal reflux disease) HLD (hyperlipidemia) HTN (hypertension) DVT (deep venous thrombosis) Hypercholesterolemia Trigeminal neuralgia Pituitary tumor Colitis Thyroid disease Surgical History Hx of right cataract extraction (12/25/24) History of removal of retained hardware (12/01/24) Hx of salpingo-oophorectomy, bilateral Hx of abdominal hysterectomy (1975) History of esophagogastroduodenoscopy (EGD) Hx of colonoscopy History of laminectomy Hx of breast surgery History of back surgery Family History Family History Mother HTN (hypertension) Macular edema Arthritis Father Thyroid disease Diabetes Liver cancer Rheumatoid arthritis Sister Arthritis COPD (chronic obstructive pulmonary disease) Macular degeneration Social History Social History Household Members: Family Are you a primary care program resident to a significant other at home: No Do you presently have visiting nurse or other home services: No Alcohol intake: never Patient Tobacco Use Status: Former Tobacco user Tobacco use type: Cigarette Cigarette Packs Per Day: 3 Years Smoked: 56.5 Advance Directives: Yes Advance Directives on File: Yes Advance Directives Date on File: 01/08/25 Physical Exam ED Vital Signs: Vital Signs - 24 hr 03/26/25 15:36 03/26/25 17:19 03/26/25 18:33 Temperature 98.0 F Pulse Rate 74 65 Respiratory Rate 18 12 Blood Pressure 143/93 H 149/65 H Pulse Oximetry 98 98 96 Oxygen Delivery Method Room Air Room Air BMI result Body Mass Index 34.3 Course Course Course Narrative: This is an RME: Additional HPI, ROS, PE not included below will be deferred to primary provider. RME assessment and note performed by: Shannon Alvarez PA-C This is a [id number], with a hx of adrenal insufficiency, osteoporosis, DVT, and pituitary tumor with sigmoid and jugular thrombosis on eliquis, partial thyroidectomy in 2002, HLD, HTN, colitis, asthma, who presents to the ER with a complaint of SOB, wheezing, chest tightness, persistent cough, fatigue, poor appetite, and subjective fevers for the last few weeks. Was dx with double lobe pneumonia and was treated with a course of levofloxacin which he completed. She states that her symptoms have not improved. Plan: Labs, Xray, viral swabs, further ER eval needed Medical Decision Making Lab Data 03/26/25 16:12 03/26/25 16:12 Labs: Lab Results 03/26/25 Range/Units 16:12 WBC 10.7 (4.8-10.8) X10*3/uL RBC 3.86 L (4.20-5.50) X10*6/uL Hgb 11.1 L (12.0-16.0) g/dl Hct 35.3 L (37.0-47.0) % MCV 91.5 (80.0-98.0) fL MCH 28.8 (27.0-33.0) pg MCHC 31.4 (31.0-35.0) g/dl RDW 15.7 (11.0-16.0) % Plt Count 587 H (160-400) X10*3/uL MPV 8.2 L (9.4-12.3) fL Immature Gran % (Auto) 4.4 H (0.0-0.4) % Neut % (Auto) 73.7 H (45-73) % Lymph % (Auto) 12.5 L (20-40) % [place] % (Auto) 7.6 (2-11) % Eos % (Auto) 1.3 (0-4) % Baso % (Auto) 0.5 (0-2) % Lymph # (Auto) 1.3 (1.2-4.9) X10*3/uL [place] # (Auto) 0.8 (0.1-1.2) X10*3/uL Eos # (Auto) 0.1 (0.0-0.4) X10*3/uL Baso # (Auto) 0.1 (0.0-0.2) X10*3/uL Abs Immat Gran (auto) 0.47 H (0.00-0.03) X10*3/uL Absolute Neuts (auto) 7.9 (2.0-8.3) x10*3/uL Absolute Nucleated RBC 0.000 (0.0-0.012) X10*3/uL Nucleated RBC % (auto) 0.0 (0.0-0.2) /100WBC Sodium 142 (135-145) mmol/L Potassium 4.0 (3.3-5.1) mmol/L Chloride 109 H (96-108) mmol/L Carbon Dioxide 27 (22-29) mmol/L Anion Gap 10 L (12-20) BUN 13 (9-16) mg/dL Creatinine 0.95 (0.5-1.4) mg/dL Estim Creat Clear Calc 55.3 Estimated GFR 58 Random Glucose 141 H (60-115) mg/dL Calcium 9.6 (8.4-10.2) mg/dL Magnesium 1.8 (1.6-2.6) mg/dL Total Bilirubin 0.2 (0.0-1.0) mg/dL Direct Bilirubin < 0.2 (0.0-0.5) mg/dL AST 22 (5-31) U/L ALT 16 (0-31) U/L Alkaline Phosphatase 73 (39-117) U/L Troponin I High Sens 8.6 (<3.5-17.0) ng/L NT-Pro-B Natriuret Pep 3196.5 H (<300) pg/mL Total Protein 6.4 L (6.5-8.0) g/dL Albumin 3.6 (3.5-5.0) g/dL Influenza Type A (PCR) NEGATIVE (Negative) Influenza Type B (PCR) NEGATIVE (Negative) RSV RNA Qual (PCR) NEGATIVE (Negative) SARS-CoV-2 RNA (RT-PCR) NEGATIVE (Negative) Discharge Plan Discharge Clinical Impression: Bronchitis Patient Disposition: Home, Self-Care Instructions: Chronic Bronchitis (ED) Additional Instructions: Please follow-up with your primary care physician tomorrow. If you have any worsening or new symptoms, please return to the emergency room or call 911 Prescriptions: New hydrocortisone 10 mg tablet 20 mg PO ONCE Qty: 30 0RF Rx Instructions: take hydrocortisone 20 mg daily until you finish your course of antibiotics levofloxacin 500 mg tablet 500 mg PO DAILY Qty: 7 0RF codeine-guaifenesin 8-200 mg/5 mL liquid 5 ml PO Q6H PRN (Reason: cough) Qty: 473 0RF No Action ondansetron 4 mg tablet,disintegrating 4 mg PO Q8H PRN (Reason: for nausea) Qty: 20 0RF carvedilol 12.5 mg tablet 12.5 mg PO BID diphenoxylate-atropine [Lomotil] 2.5-0.025 mg tablet 1 tab PO TID PRN (Reason: diarrhea) amitriptyline 10 mg Tablet 10 mg PO BEDTIME levothyroxine [Synthroid] 125 mcg tablet 125 mcg PO DAILY furosemide 20 mg tablet 20 mg PO DAILY azelastine 137 mcg (0.1 %) spray,non-aerosol 1 spray intranasal BID albuterol sulfate 90 mcg/actuation HFA aerosol inhaler 2 puff INHALATION Q4H PRN (Reason: wheezing) losartan 100 mg tablet 100 mg PO DAILY colestipol 1 gram tablet PO fenofibrate 54 mg tablet 54 mg PO BEDTIME Eliquis 2.5 mg tablet 2.5 mg PO BID oxycodone 5 mg tablet PO pravastatin 40 mg tablet 40 mg PO DAILY Premarin 0.625 mg/gram Cream 0.625 mg VAGINAL 3XW Rx Instructions: off 5 days; repeat cycle hydrochlorothiazide 12.5 mg Tablet 12.5 mg PO DAILY cholecalciferol (vitamin D3) [Vitamin D3] 50 mcg (2,000 unit) Tablet 50 mcg PO DAILY cholestyramine 4 gram powder 12 g PO DAILY Qty: 378 6RF Rx Instructions: no meds 1 hr before/4-6 hr after dose dicyclomine 20 mg tablet 20 mg PO QID PRN (Reason: abdominal pain) Qty: 180 1RF Rx Instructions: Take 1 tablet up to 4 times a day as needed for cramping pantoprazole 40 mg tablet,delayed release (DR/EC) 40 mg PO QAM Qty: 90 1RF Rx Instructions: Take 1 tablet daily. Best taken on an empty stomach, 30 minutes before food loperamide 2 mg capsule 2 mg PO Q6H PRN (Reason: loose stool) Qty: 60 1RF Rx Instructions: 4 mg, followed by 2 mg after each loose stool; maximum: 16 mg/day pramipexole 0.125 mg tablet 0.125 mg PO BEDTIME Solu-Cortef Act-O-Vial (PF) 100 mg/2 mL recon soln 100 mg IM DAILY Qty: 2 1RF Rx Instructions: to inject hydrocortisone 100 mg in case of emergency (DME) BD SafetyGlide Needle 23 gauge x 1 needle See Rx Instructions .ROUTE .MEDSUPPLY Qty: 10 1RF Rx Instructions: As directed to inject hydrocortisone 100 mg in case of emergency (DME) BD Regular Bevel [place] 19 gauge x 1 needle See Rx Instructions .ROUTE .MEDSUPPLY Qty: 10 1RF Rx Instructions: As directed to draw hydrocortisone in case of emergency use (DME) Aqinject Safety Syringe 3 mL 23 gauge x 1 syringe See Rx Instructions .Route Qty: 10 1RF Rx Instructions: As directed to inject hydrocortisone 100 mg in case of emergency hydrocortisone 10 mg tablet See Rx Instructions PO .COMPLEX Qty: 135 4RF Rx Instructions: orally; Take 10 mg in AM and 5 mg at 2 PM hydralazine 10 mg tablet 10 mg PO BID Print Language: Hebrew
--- NOTE | 2025-03-26 15:46 | ECG_ITS ---
Test Reason : sob Blood Pressure : */* mmHG Vent. Rate : 70 BPM Atrial Rate : 70 BPM P-R Int : 152 ms QRS Dur : 94 ms QT Int : 410 ms P-R-T Axes : 67 26 47 degrees QTcB Int : 442 ms Normal sinus rhythm Cannot rule out Anterior infarct , age undetermined Abnormal ECG No previous ECGs available Referred By: Shannon Alvarez Electronically Signed By: Benny Randolph
--- NOTE | 2025-03-26 15:55 | MHC.EDTECH ---
called for pt at 15:55, pt was taken to x-ray
[2025-03-26 16:18] LABS: MANUAL DIFF FLAG NO
[2025-03-26 16:21] LABS: Hematocrit 35.3 % (37.0-47.0); Hemoglobin 11.1 g/dl (12.0-16.0); Imm Gran Abs Auto 0.47 X10*3/uL (0.00-0.03); Imm Gran Pct Auto 4.4 % (0.0-0.4); Lymphocytes Absolute Auto 1.3 X10*3/uL (1.2-4.9); Mean Corpuscular HGB Conc 31.4 g/dl (31.0-35.0); Mean Corpuscular Hemoglobin 28.8 pg (27.0-33.0); Mean Corpuscular Volume 91.5 fL (80.0-98.0); NRBC Abs Auto 0.000 X10*3/uL (0.0-0.012); NRBC Pct Auto 0.0 /100WBC (0.0-0.2); Platelet Count 587 X10*3/uL (160-400); Red Blood Count 3.86 X10*6/uL (4.20-5.50); White Blood Count 10.7 X10*3/uL (4.8-10.8)
[2025-03-26 16:36] LABS: Alanine Aminotransferase 16 U/L (0-31); Albumin Level 3.6 g/dL (3.5-5.0); Alkaline Phosphatase 73 U/L (39-117); Anion Gap 10 (12-20); Aspartate Amino Transferase 22 U/L (5-31); Blood Urea Nitrogen 13 mg/dL (9-16); Calcium 9.6 mg/dL (8.4-10.2); Carbon Dioxide 27 mmol/L (22-29); Chloride 109 mmol/L (96-108); Creatinine Clr Calc Pharmacy 55.3; Estimated Glomerular Filt Rate 58; Magnesium 1.8 mg/dL (1.6-2.6); Potassium 4.0 mmol/L (3.3-5.1); Sodium 142 mmol/L (135-145); Total Protein 6.4 g/dL (6.5-8.0)
[2025-03-26 16:43] LABS: Troponin-I High Sensitivity 8.6 ng/L (<3.5-17.0)
[2025-03-26 16:59] LABS: Resp Syncy Virus RNA Qual PCR NEGATIVE (Negative); SARS COV2 PCR INHOUSE NEGATIVE (Negative)
[2025-03-26 17:19] VITALS: BP 149/65; PULSE 65; RESP 12; O2SAT 98
--- NOTE | 2025-03-26 17:41 | MHC.EDTECH ---
pt stated 95%-96% during ambulation trial, MD made aware
[2025-03-26 18:33] VITALS: O2SAT 96
[2025-03-26 18:43] VITALS: BP 149/65; PULSE 63; RESP 18; TEMP 36.5; O2SAT 96
--- OUTSIDE RECORDS SUMMARY | 2025-03-26 20:35 | XMS_ITS | Data Portability ---
Author Organization [facility] [employer] [employer] Address [address] [place] [address] Care Team Providers Care Electrical Installer Name Role Phone RYLEE ZAYAS Referring Provider [phone] MACIE LEE Referring Provider RYLEE ZAYAS Primary Care Provider [phone] [facility] Prim moise Care Provider Assessment [...] studies May 08, 2021, Dr. Greg Dupree, [facility]: Right upper extremity nerve conduction studies are [...] By Organization Details Last Modified Time 05/11/2022 4611 Discussion acros s issues of diagnoses and [...] 05/11/2022 DATA REVIEW completed Rancho Herrera MD [address] [place] [address], [phone] 05/11/2022 14:20:56 Imaging Results None recorded. Procedure Notes None recorded. Medical Equipment None Reported. Allergies Allergen ID Allergen Name Allergen Category Reaction Reaction Severity Criticality Documentation Date Start Date Code Code System Note Provider Name and Address Organization Details Recorded Time 2148 morphine medicatio n Not available Not available Not available 05/11/2022 7052 RxNorm Neeru Wor[facility]t [facility] 3 13:04:28 2150 Augmentin medicatio n Not available Not available Not available 05/11/2022 96835 2 RxNorm Neeru Worthingt on [facility] 3 13:05:59 2151 Product containin g 3-hydroxy -3-methyl glutaryl- coenzyme A reductase inhibitor (product) medicatio n Not available Not available Not available 05/11/2022 67682 009 SNOMED Neeru Blinkiverse[facility] on [facility] 3 13:06:06 Medications Name Sig [...] Updated DateTime 05/11/2022 165.1 cm 33.3 kg/m2 52218.47 g 12 /min [facility] 05/11/2022 13:04:09 Social History Question Answer Notes LastModified by Organizat ion Details LastModified Time Tobacco Smoking Status Former Smoker [facility] 05/11/2022 13:15:09 What Is Your Level Of Caffeine Consumption? Moderate [facility] Information not available 05/11/2022 What Is The Highest Grade Or Level Of School You Have Completed Or The Highest Degree You Have Received? [id number] [facility] Information not available 05/11/2022 Which Of Your Hands Is Dominant? Right [facility] Information not available 05/11/2022 Sex: Unknown [...] Pressure or Hypertension Y Thyroid Problems Y Brain Tumors N Depression N Lung Disease N COPD or emphysema N Encephalitis N Vitamin B12 deficiency N PTSD N Heart Attack (IA) N Spine Problems N Obstructive Sleep Apnea N Alcoholism N Diabetes N Autoimmune disease N Bleeding Disorder N Arthritis N Tuberculosis N Cerebral Palsy N Developmental Problems N Neck Problems N Cancer N Back Problems N Stroke N Asthma N Heartburn, acid reflux, GERD N Vitamin D Deficiency Y Epilepsy/Seizures N Bipolar Disorder N Sleep Disorder N Hepatitis N Aneurysm N Liver Disease N Heart Disease N Headaches Y Fibromyalgia N High Cholesterol or Hyperlipidemia Y Osteoporosis N Kidney Disease N Gynecological HistoryNo gynecological history recorded. Obstetrics History GPAL:G 0 P 0 0 0 0 Past Encounters Encounter ID Performer Location Encounter Start Date Encounter Closed Date Diagnosis/Indication Diagnosis SNOMED-CT Code Diagnosis ICD10 Code Diagnosis IMO Codes Diagnosis Note [id number] Rancho Herrera MD [facility] [address] [place] [address] [place] [address] 05/11/2022 12:36:46 05/12/2022 08:30:39 Cervical radiculopathy 29792502 M54.12 Health Concerns Section Related Observation LastModified by Organization Detai ls LastModified Time None Recorded Concern Status LastModified by Organization Details LastModified Time None Recorded Advance Directives Directive None Recorded Payers Insurance Date Sequence Insurance Name Policy Number Policy Herbert Covered Member ID Herbert Member ID Guarantor Name 05/28/2022 1 [place]: [employer] Nina Noriega [id number] Nina Noriega 05/28/2022 2 [facility] [id number] Nina Noriega [id number] Nina Noriega Notes Date Note Type [...] her most concerning symptoms: Rancho Herrera MD [address] [place] [address] [place], [address], [facility] 05/11/2022 16:23:34 OBGyn Episode No OBEpisode recorded.
--- OUTSIDE RECORDS SUMMARY | 2025-03-26 20:35 | XMS_ITS | Continuity of Care Document ---
Author Organization [facility] [address] [place] [address] Phone [phone] Care Team Providers Care Stitchdown Thread Laster Name Role Phone Madi Rees MD Care Team Information Receiv er [phone] Problems Active Problems Provider Date Severe adrenal [...] SIG Qnty Indications Order ing Provider Date Thezghbnyptabh90ly Tablets Take 1 Tablet By Mouth Every Day 90tabs Levon Valle M.D. 01/13/2022 Levothyroxine Gzmtzu233hul Capsules 1 by mouth daily 30caps Vi Ng M.D. Amlodipine Wqrgkmuf9gp Tablets Take 1 Tablet By Mouth Every Day Madi Rees MD Losartan Wjmykvtyn824jf Tablets Take 1 Tablet By Mouth Every Day Madi Rees MD Pravastatin Icbgzt72az Tablets Take 1 Tablet By Mouth Every Day Madi Rees MD Eliquis2.5mg Tablets take 1 tablet by mouth twice a day Talia Urena M.D. Oxycodone IDP50op Tablets take 2-6 per day Unknown Lsxnhumvir28.5mg Tablets 1 by mouth twice a day Unknown Bqcctaybre60kg Capsules DR Take 1 Capsule By Mouth Every Day Madi Rees MD Amitriptyline SPA04jl Tablets Take 4 Tablets By Mouth AT [...]
== END 2025-03-26 18:44 | disposition home or self-care (01) ==
PROVIDERS: Physician Assistant Medical; Emergency Provider Emergency Medicine; PCP Internal Medicine
DX: J40 Bronchitis, not specified as acute or chronic (principal); R06.00 Dyspnea, unspecified; I10 Essential (primary) hypertension; E78.5 Hyperlipidemia, unspecified; R06.02 Shortness of breath; Z03.818 Encounter for observation for suspected exposure to other biological agents ruled out; Z87.891 Personal history of nicotine dependence
CPT/HCPCS: 36415; 71046; 80048; 80076; 83735; 83880; 84484; 85025; 87637; 93005; 99212; 99283; 99284

== ENCOUNTER → 2025-03-26 15:46 | Outpatient (BNV) | payer MEDICARE, SELFPAY | PROVIDERS: Emergency Provider Emergency Medicine; PCP Internal Medicine; Visit Provider Internal Medicine Cardiovascular Disease | DX: R94.31 Abnormal electrocardiogram [ECG] [EKG] (principal); R06.02 Shortness of breath | CPT/HCPCS: 93010 ==

== ENCOUNTER → 2025-03-26 15:46 | Outpatient (BNV) | payer MEDICARE, SELFPAY | PROVIDERS: PCP Internal Medicine; Visit Provider Radiology Diagnostic Radiology | DX: R06.02 Shortness of breath (principal) | CPT/HCPCS: 71046 ==

== ENCOUNTER 2025-04-18 09:32 | Outpatient (AMB) | payer MEDICARE, SELFPAY ==
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
[2025-04-18 09:52] VITALS: BP 132/72; PULSE 95; O2SAT 96; BMI 34.4
--- OUTSIDE RECORDS SUMMARY | 2025-04-18 10:56 | XMS_ITS | Continuity of Care Document ---
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 01/13/2022 Levothyroxine [id number] Capsules 1 by mouth daily 30caps Vi Ng M.D. Amlodipine Xsttrcof3kc Tablets Take 1 Tablet By Mouth Every Day Madi Rees MD Losartan [id number] Tablets Take 1 Tablet By Mouth Every Day Madi Rees MD Pravastatin [id number] Tablets Take 1 Tablet By Mouth Every Day Madi Rees MD Eliquis2.5mg Tablets take 1 tablet by mouth twice a day Talia Urena M.D. Oxycodone GSR77gf Tablets take 2-6 per day Unknown Dezbamrmsq67.5mg Tablets 1 by mouth twice a day Unknown Ewrrsbsdpr87ii Capsules DR Take 1 Capsule By Mouth Every Day Madi Rees MD Amitriptyline [id number] Tablets Take 4 Tablets By Mouth AT [...]
--- OUTSIDE RECORDS SUMMARY | 2025-04-18 10:57 | XMS_ITS | Clinical Summary ---
Author Organization [facility] [address] [place] [address] [address] [place] [address] Phone Care Team Providers Care Application Support Administrator Name Role Phone Madi Rese MD Primary Care Provider Allergies Active Allergy [...] 1 (one) time each day. Neuriva Active levothyroxine (SYNTHROID, LEVOTHROID) 125 mcg tablet Take 1 tablet (125 mcg total) by mouth 1 (one) time each day. 90 each 1 10/14/19 25 Active dicyclomine (BENTYL) 10 mg capsule Take [...] time each day. 90 each 1 02/08/20 Active azelastine (ASTELIN) 137 mcg (0.1 %) nasal spray Administer 1 spray into each nostril 2 (two) times a day. Use in each nostril as directed 30 mL 1 02/08/20 Active estradioL (ESTRACE) 0.01 % (0.1 mg/gram) vaginal cream APPLY 1/2 GRAM ON MONDAYS, WEDNESDAYS AND FRIDAYS 42.5 g 1 02/14/20 Active hydrALAZINE (APRESOLINE) 10 mg tablet TAKE 1 TABLET TWICE A DAY 180 tablet 1 03/06/20 Active diphenoxylate- atropine (LOMOTIL) 2.5-0.025 mg per tablet TAKE 1 TABLET 3 TIMES A DAYIF NEEDED FOR DIARRHEA. MAXIMUM DAILY AMOUNT: 3 TABLETS 60 tablet 03/16/20 Active colestipoL (COLESTID) 1 gram tablet TAKE 1 TABLET BY MOUTH 4 TIMES DAILY 360 tablet 03/30/20 Active pramipexole (MIRAPEX) 0.25 mg tablet TAKE 1 TABLET AT BEDTIME 90 tablet 03/30/20 Active losartan (COZAAR) 100 mg tablet TAKE 1 TABLET DAILY 90 tablet 03/30/20 25 Active losartan (COZAAR) 100 mg tablet TAKE 1 TABLET DAILY 90 tablet 1 10/03/19 25 025 Discontinued pramipexole (MIRAPEX) 0.25 mg tablet Take 1 tablet (0.25 mg total) by mouth at bedtime. 90 each 1 10/21/19 25 025 Discontinued colestipoL (COLESTID) 1 gram tablet Take 1 tablet (1 g total) by mouth 4 (four) times a day. 120 tablet 03/06/20 025 Discontinued Active Problems Problem Noted Date Diagnosed Date Gastroesophageal reflux disease without esophagi tis 07/18/2024 Allergic rhinitis 03/10/2024 Hypogammaglobulinemia 03/10/2024 Trigeminal neuralgia 03/10/2024 Overview (03/10/2024): Had surgery to relieve 2012 - not effective Restless leg syndrome 03/10/2024 Hypothyroidism due to acquired atrophy of thyroi d 08/23/2023 Mild intermittent asthma without complication Hypertriglyceridemia 08/23/2023 SI joint arthritis 08/23/2023 Pelvic pain 04/02/2022 Overview (03/10/2024): Last [...] t3; Future Microscopic colitis 08/10/2019 Esophageal candidiasis 08/10/2019 Asthma 07/20/2019 Chronic headache disorder 06/02/2017 Overview (03/10/2024): Onset approx 2015. Postprocedural retroperitoneal abscess 7 Overview (03/10/2024): Retroperitoneal perforation, ERCP, 03/10/2016 Elevated alkaline phosphatase level 04/07/2016 Overview (03/10/2024): Dilated pancreatic duct, perforation at time of ERCP and sphincterotomy Mixed hyperlipidemia 02/23/2014 Secondary adrenal insufficiency 02/06/2014 Assessment & Plan (12/18/2024 12:38 PM EDT): Orders: CBC and differential; Future Basic metabolic panel; Future Thyroid stimulating hormone with reflex to free t4 and free t3; Future Jugular vein thrombosis, left 01/18/2014 Overview (03/10/2024): No flow left internal jugular vein, left sigmoid and transverse sinuses. Lifelong anticoagulation recommended by Dr. Hills Pituitary adenoma 12/29/2013 Overview (03/10/2024): 5 mm on MRI of 12/29/2013 Chronic left-sided low back pain with left-sided sciatica 03/21/2013 Overview (03/10/2024): Per pt: [facility], Dr. Bean performed my cervical surgery in 2019 and will be doing back surgery, for ruptured disk, central canal and foraminal stenosis Recurrent deep vein thrombosis (DVT) of lower ex tremity 10/14/2012 Overview (03/10/2024): Chronic anticoagulation Assessment & Plan (12/18/2024 12:38 PM EDT): Orders: CBC and differential; Future Basic metabolic panel; Future Thyroid stimulating hormone with reflex to free t4 and free t3; Future Myofascial pain 09/21/2012 Overview (03/10/2024): [facility] Dr. Jose C Tariq [phone] Cervicalgia 09/21/2012 Chronic pain 03/10/2012 Hypothyroid 03/10/2012 [...] Encounters Date Type Department Care Team Description 04/09/2025 1:14 PM EST - 04/09/2025 11:59 PM EST Hospital Encounter [facility] MRI [address] [place] [address] Low back pain, unspecified Discharge Disposition: Home or Self Care 01/25/2025 11:30 AM EDT Consult Orthopedic Surgery - [place] [address] [place] [address] Rona Winn PA Arthritis of left hand (Primary Dx); Carpal tunnel syndrome on left 01/22/2025 2:09 PM EDT - 01/22/2025 11:59 PM EDT Hospital Encounter [facility] Neurodiagnostic [address] [place] [address] Carpal tunnel syndrome on left Discharge Disposition: Home or Self Care 01/17/2025 12:27 PM EDT - 01/17/2025 11:59 PM EDT Hospital Encounter [facility] - [address] [address] Encounter for screening for osteoporosis Discharge Disposition: [...] lumbar 2003 and 2005 SINUS SURGERY PROCEDURE: NM UNLISTED PROCEDURE ACCESSORY SINUSES; COMMENT: 2006 OTHER SURGICAL HISTORY PROCEDURE: NM TOTAL ABDOMINAL HYSTERECT W/WO RMVL TUBE OVARY; COMMENT: uterus 1975, one ovary 1982, other one 1985 OTHER SURGICAL HISTORY PROCEDURE: HISTORICAL UNSPECIFIED SURGERY; COMMENT: decompression brain surgery for trigem neuralgia BREAST SURGERY Left PROCEDURE: NM UNLISTED PROCEDURE BREAST; COMMENT: ductal ectasia OTHER SURGICAL HISTORY 03/10/2016 PROCEDURE: NM ERCP W/SPHINCTEROTOMY/PAPILLOT ALEX; COMMENT: [facility]; pancreatic sphincterotomy and stent placement; complicated by retroperitoneal perforation. UPPER GASTROINTESTINAL ENDOSCOPY 12/07/2014 PROCEDURE: NM UPPER GI ENDOSCOPY PERFORMED; COMMENT: [facility]; Few small gastric erosions; no H. pylori; nl duodenal bx. COLONOSCOPY 12/07/2014 PROCEDURE: HISTORICAL COLONOSCOPY; COMMENT: [facility]; Hemorrhoids; normal biopsies OTHER SURGICAL HISTORY 04/09/2017 PROCEDURE: NUCLEAR EXAM OF STOMACH EMPTYING; COMMENT: Normal. COLONOSCOPY 07/26/2019 PROCEDURE: HISTORICAL COLONOSCOPY; COMMENT: collagenous colitis on biopsy UPPER GASTROINTESTINAL ENDOSCOPY 07/26/2019 PROCEDURE: UPPER GI ENDOSCOPY/EXAM; COMMENT: hiatal hernia ESOPHAGOGASTRODUODENOSCOPY 04/14/2022 PROCEDURE: NM EGD TRANSORAL BIOPSY SINGLE/MULTIPLE; COMMENT: esoph normal [...] for your loved ones. For example, child protective services specialist or elderly care for an older adult? [...] PM EDT Sexual Orientation Not on file Last Filed Vital Signs Vital Sign Reading [...] 11:15 AM EST Office Visit [facility] - [address] [phone] Madi Rees MD [address] [place] [address] 04/23/2025 4:00 PM EST Appointment Radiology Department - [address] [phone] Health Maintenance Due Date Last Done Comments COVID-19 Vaccine ( season) 2025 02/26/2025, 11/22/2024, 01/11/2024, Additional history exists Hypertension/CHF/CAD Annual BMP [...] Completed 12/18/2024, 02/14/2020, 11/04/2016, Additional history exists Influenza Vaccine Completed 02/26/2025, , 01/11/2023, Additional history exists HIB Vaccines Aged Out [...] Procedure Name Priority Date/Time Associated Diagnosis Comments MR LUMBAR SPINE WO AND W CONTRAST Routine 04/09/2025 2:36 PM EST Low back pain, unspecified EXTERNAL XRAY REPORT 03/26/2025 EXTERNAL XRAY REPORT 03/26/2025 EXTERNAL CLINICAL LAB 03/20/2025 EXTERNAL XRAY REPORT 03/20/2025 EXTERNAL XRAY REPORT 03/20/2025 EXTERNAL ULTRASOUND REPORT 03/08/2025 NM INJECTION CARPAL TUNNEL THERAPEUTIC Routine 01/25/2025 11:30 [...] Recently Relevant to Health Maintenance Results * MR Lumbar Spine wo and w Contrast (04/09/2025 2:36 PM EST) Anatomical Region Laterality Modality L-spine, Spine Magnetic Resonan ce 04/12/2025 8:39 AM EST Impressions 04/12/2025 8:50 AM EST Extensive artifact related to prior instrumentation. There is ventral and dorsal ridging upon the thecal sac from L1 through L4/L5. There is lateral recess and foraminal narrowing. No large enhancing collection. REFERENCE FOR TERMINOLOGY DISC BULGE: Annular tissue projects beyond the margins of the adjacent vertebral bodies, involves greater than 90% of circumference Circumferential bulge- involves the entire disc circumference Asymmetric bulge- does not involve the entire disc circumference HERNIATION PROTRUSION-focal herniation of disc material beyond the margins of the adjacent vertebral body, involves less than 90 degrees of the disc circumference, with a base that is wider than the dome EXTRUSION-focal herniation of disc material through an annular defect, remaining in continuity with the disc, with a base narrower than the dome of the extrusion SEQUESTRATION-distal migration of extruded disc material away from the disc, with no direct continuation with the adjacent disc -------- FINAL REPORT -------- Dictated By: Thiago Rice Dictated Date: 04/12/2025 08:39 ET Assigned Physician: Thiago Rice Reviewed and Electronically Signed By: Thiago Rice Signed Date: 04/12/2025 08:50 ET Workstation ID: [id number] Transcribed By: Self Edit Transcribed Date: 04/12/2025 08:39 ET Narrative 04/12/2025 8:50 AM EST MRI LUMBAR WITHOUT AND WITH IV CONTRAST TECHNIQUE: Anatomic and fluid sensitive sequences were obtained on a high field platform to examine the lumbar spine. CONTRAST: Amount of IV contrast: 15 mL Type of contrast: Dotarem Volume of contrast discarded: 0 mL HISTORY: Prior spine surgery. Low back pain. COMPARISON: Portions of a previous CT 09/27/24 FINDINGS: There is extensive susceptibility artifact from previous instrumentation. There are transpedicular screws bilaterally from L3 through S1. There is some convex right scoliosis. There is susceptibility artifact related to disc spacers at L3/L4, L4/L5 and L5/S1. Osseous/marrow: No suspicious focal lesion. Canal contents: The conus is appropriately positioned at the L1/L2 level. There is no abnormality in the spinal canal in the lower thoracic or upper lumbar region. Conus/Cauda equina: The cauda equina is somewhat constricted by anterior and posterior disc and facet as well as ligamentous disease from L1/L2 to L4/L5. Disc/Facets: There is moderate narrowing of the L1/L2 disc. There has been disc fusion with spacers present at L3/L4, L4/L5 and L5/S1. Soft tissues/other: Visible soft tissues appear within normal limits. No paraspinal collection. L1-L2: There is disc narrowing with posterior osteophyte and posterior ligamentous and facet disease. This causes central canal narrowing. There is bilateral foraminal narrowing without definite nerve root displacement. L2-L3: There is disc narrowing. There is facet disease. There is some posterior osteophyte. There is bilateral lateral recess and bilateral foraminal narrowing. Susceptibility limits assessment of the left L2/L3 foramen. L3-L4: Artifact limits assessment. There is right lateral recess narrowing. There is some foraminal narrowing. Susceptibility limits assessment of the right foramen. L4-L5: Postsurgical change. There is central canal narrowing. Foramina are mostly obscured. L5-S1: Postsurgical change. No significant encroachment on the spinal canal. No definite nerve root displacement. Procedure Note Thiago Rice MD - 04/12/2025 MRI LUMBAR WITHOUT AND WITH IV CONTRAST TECHNIQUE: Anatomic and fluid sensitive sequences were obtained on a high fieldplatform to examine the lumbar spine. CONTRAST: Amount of IV contrast: 15 mL Type of contrast: Dotarem Volume of contrast discarded: 0 mL HISTORY: Prior spine surgery. Low back pain. COMPARISON: Portions of a previous CT 09/27/24 FINDINGS: There is extensive susceptibility artifact from previousinstrumentation. There are transpedicular screws bilaterally from D4tyydunn S1. There is some convex right scoliosis. There is susceptibilityartifact related to disc spacers at L3/L4, L4/L5 and L5/S1. Osseous/marrow: No suspicious focal lesion. Canal contents: The conus is appropriately positioned at the L1/L2 level.There is no abnormality in the spinal canal in the lower thoracic or upperlumbar region. Conus/Cauda equina: The cauda equina is somewhat constricted by anteriorand posterior disc and facet as well as ligamentous disease from L1/L2 toL4/L5. Disc/Facets: There is moderate narrowing of the L1/L2 disc. There has beendisc fusion with spacers present at L3/L4, L4/L5 and L5/S1. Soft tissues/other: Visible soft tissues appear within normal limits. Noparaspinal collection. L1-L2: There is disc narrowing with posterior osteophyte and posteriorligamentous and facet disease. This causes central canal narrowing. Thereis bilateral foraminal narrowing without definite nerve rootdisplacement. L2-L3: There is disc narrowing. There is facet disease. There is someposterior osteophyte. There is bilateral lateral recess and bilateral foraminal narrowing.Susceptibility limits assessment of the left L2/L3 foramen. L3-L4: Artifact limits assessment. There is right lateral recessnarrowing. There is some foraminal narrowing. Susceptibility limitsassessment of the right foramen. L4-L5: Postsurgical change. There is central canal narrowing. Foramina aremostly obscured. L5-S1: Postsurgical change. No significant encroachment on the spinalcanal. No definite nerve root displacement. IMPRESSION: Extensive artifact related to prior instrumentation. There is ventral and dorsal ridging upon the thecal sac from L1 throughL4/L5. There is lateral recess and foraminal narrowing. No large enhancing collection. REFERENCE FOR TERMINOLOGY DISC BULGE: Annular tissue projects beyond the margins of the adjacentvertebral bodies, involves greater than 90% of circumference Circumferential bulge- involves the entire disc circumference Asymmetric bulge- does not involve the entire disccircumference HERNIATION PROTRUSION-focal herniation of disc material beyond the margins ofthe adjacent vertebral body, involves less than 90 degrees of the disccircumference, with a base that is wider than the dome EXTRUSION-focal herniation of disc material through an annulardefect, remaining in continuity with the disc, with a base narrower thanthe dome of the extrusion SEQUESTRATION-distal migration of extruded disc material away fromthe disc, with no direct continuation with the adjacent disc -------- FINAL REPORT -------- Dictated By: Thiago Rice Dictated Date: 04/12/2025 08:39 ET Assigned Physician: Thiago Rice Reviewed and Electronically Signed By: Thiago Rice Signed Date: 04/12/2025 08:50 ET Workstation ID: [id number] Transcribed By: Self Edit Transcribed Date: 04/12/2025 08:39 ET us Jamaal Bean DO IMG MRI PROCEDURES Fin al Result * External Xray Report (03/26/2025) Only the most recent of4 resultswithin the time period is included. Anatomical Region Laterality Modality Radiographic Beverly ging us Provider [facility] IMG XR PROCEDURES Final Result * External clinical lab (03/20/2025) us Provider [facility] LAB BLOOD ORDERABLES Fin al Result * External Ultrasound Report (03/08/2025) Anatomical Region Laterality Modality Ultrasound us Provider [facility] IMG US PROCEDURES Final Result * NM INJECTION CARPAL TUNNEL THERAPEUTIC (01/25/2025 11:30 AM [...] result were not included. [facility] [address] [place] [address] Electromyograph Report Date of service: 01/22/25 Patient [...] note were not included. [facility] [address] [place] [address] Electromyograph Report Date of service: 01/22/25 Patient [...] EDT Impression: Osteoporosis by WHO criteria. [facility] Department of Internal Medicine recommends using [...] alternative screening schedule based on rosey Clark., [facility] May 21, 2011 for patients with osteopenia [...] Signed Date: 01/18/2025 06:18 ET Workstation ID: [id number] Transcribed By: Self Edit Transcribed Date: 01/18/2025 [...] IMPRESSION: Impression: Osteoporosis by WHO criteria. [facility] Department of Internal Medicine recommendsusing National [...] alternative screening schedule based on rosey Clark., [facility] [place] for patients with osteopenia (based on [...] Signed Date: 01/18/2025 06:18 ET Workstation ID: [id number] Transcribed By: Self Edit Transcribed Date: 01/18/2025 06:16 ET us Madi Rees MD [facility] DXA PROCEDURES Final Re sult * (ABNORMAL) Basic metabolic panel (10/26/2024 1:29 PM EDT) [facility] Sodium 138 133 - 145 mmol/L LAB CHEMISTRY METHOD 10/26/2024 5:05 PM EDT [facility] Potassium 4.9 3.5 - 5.5 mmol/L LAB CHEMISTRY METHOD 10/26/2024 5:05 PM [facility] Chloride 99 96 - 110 mmol/L LAB CHEMISTRY METHOD 10/26/2024 5:05 PM [facility] CO2 32 21 - 32 mmol/L LAB CHEMISTRY METHOD 10/26/2024 5:05 PM [facility] Anion Gap 7 3 - 11 LAB CHEMISTRY METHOD 10/26/2024 5:05 PM [facility] Glucose 121(H) 70 - 100 mg/dL LAB CHEMISTRY METHOD 10/26/2024 5:05 PM [facility] BUN 19 5 - 25 mg/dL LAB CHEMISTRY METHOD 10/26/2024 5:05 PM [facility] Creatinine 1.06 0.50 - 1.10 mg/dL LAB CHEMISTRY METHOD 10/26/2024 5:05 PM [facility] eGFR 56(L) >=60 mL/min/1. 73m2 LAB CHEMISTRY METHOD 10/26/2024 5:05 PM [facility] Comment:Calculation based on the Chronic Kidney Disease Epidemiology Collaboration (CKD-EPI) equation refit without adjustment for race. BUN/Creatinine Ratio 17.9 LAB CHEMISTRY METHOD 10/26/2024 5:05 PM [facility] Calcium 9.7 8.5 - 10.5 mg/dL LAB CHEMISTRY METHOD 10/26/2024 5:05 PM [facility] Blood Venous blood specimen / Unknown Venipuncture / Unknown 10/26/2024 1:29 PM EDT 10/26/2024 1:29 PM EDT us Madi Rees MD LAB BLOOD ORDERABLES Final Result [facility] [address] [place] [address], * SCREENING MAMMOGRAPHY BI 2-VIEW BREAST INC [...] evidence of malignancy. BI-RADS 1 - negative [address] [address] Procedure Note Dana Weeks MD - 03/04/2024 [...] evidence of malignancy. BI-RADS 1 - negative [address] [address] us Madi Rees MD IMG XR PROCEDURES Final Res ult * Lipid panel (02/25/2024) LDL/HDL Ratio 2 0 - 4 Triglycerides 125 0 - 150 mg/dL Cholesterol 180 0 - 200 mg/dL HDL 100 >=40 mg/dL LDL Cholesterol 55 0 - 100 mg/dL Blood Venous blood specimen / Unknown Historical Provider LAB BLOOD ORDERABLES Isabelle l Result * Falls Risk Assessment (01/11/2023) [facility] Falls Risk Assessment Abstracted Historical Provider HEALTH MAINTENANCE Final Result * Depression Screening (01/11/2023) Pathologist [facility] Depression Screening Abstracted [facility] Provider HEALTH MAINTENANCE Final Result * Colonoscopy (07/26/2019) Pathologist [facility] Colonoscopy No interpretation , abstracted Anatomical Region Laterality Modality Other Historical Provider HEALTH MAINTENANCE Final Result * Hepatitis C Screening (09/21/2012) Pathologist [facility] Hepatitis C Screening Abstracted [facility] Provider HEALTH MAINTENANCE Final Result from Last 3 Months or Most Recently Relevant to Health Maintenance Insurance MEDICARE [facility] Care Teams Application Support Administrator Relationship Specialty Start Date End Date Madi Rees MD [address] [place] [address] PCP - General Internal Medicine 10/06/21
== END 2025-04-18 11:00 | disposition home or self-care (01) ==
LOC: HO.ENCR 09:32
PROVIDERS: PCP Internal Medicine; Visit Provider Student in an Organized Health Care Education/Training Program
DX: E27.49 Other adrenocortical insufficiency (principal); E04.2 Nontoxic multinodular goiter; E03.9 Hypothyroidism, unspecified
CPT/HCPCS: 99214; G2211

== ENCOUNTER → 2025-04-18 09:32 | Outpatient (BNVA) | payer MEDICARE, SELFPAY | PROVIDERS: PCP Internal Medicine; Visit Provider Student in an Organized Health Care Education/Training Program | DX: E27.49 Other adrenocortical insufficiency (principal); E04.2 Nontoxic multinodular goiter; E89.0 Postprocedural hypothyroidism; Z79.890 Hormone replacement therapy | CPT/HCPCS: 99212 ==